=== PATIENT | female | born 1995 | race Caucasian/White ===

== ENCOUNTER 2017-02-05 22:02 | Inpatient (IN) | payer OTHER ==
[~2017-02-05] VITALS: Ht 157.5 cm; Wt 66.5 kg
[~2017-02-05 22:02] MED LIST: DESM0.1T PO; HYDR10TA PO; IBUP800T25 PO; [UNRECOGNIZED DRUG - CODE]
--- NOTE | 2017-02-05 22:22 | ERA ---
ER Documentation Chief Complaint Date/Time DATE: 02/05/17 TIME: 22:21 Chief Complaint aloc since 530 pm HPI The patient is a 21-year-old female, presenting to the ER because of altered level of consciousness when the parents came home and discovered her around 5: 30 PM. It is unknown how long she has had ALOC. She has had vomiting and diarrhea for 1 day. The history is obtained from the parents because she unable to provide history. She does not smoke nor drink nor does illegal drug according to the parents Past medical history: Hypothyroidism Past surgical history:None ROS All systems reviewed and are negative except as per history of present illness. Medications Home Meds Reported Medications Levothyroxine Sodium* (Levothyroxine Sodium*) 150 Mcg Tablet, 150 MCG PO BEFORE BREAKFAST, #30 TAB 02/05/17 Hydrocortisone (Hydrocortisone) 10 Mg Tablet, 10 MG PO BID 11/24/10 Desmopressin Acetate (Desmopressin Acetate) 0.1 Mg Tablet, 0.1 MG PO BID 11/24/10 Discontinued Reported Medications Levothyroxine Sodium (Levothroid) 112 Mcg Tablet 11/24/10 Discontinued Scripts Ibuprofen* (Motrin*) 800 Mg Tab, 800 MG PO Q6H Y for PAIN AND OR ELEVATED TEMP, #30 TAB Prov:OSKAR BOJORQUEZ MD 05/21/16 Allergies Allergies: Coded Allergies: No Known Allergies (Verified Allergy, Mild, 02/05/17) PMhx/Soc History of Surgery: No Anesthesia Reaction: No Hx Neurological Disorder: No Hx Respiratory Disorders: No Hx Cardiac Disorders: No Hx Psychiatric Problems: No Hx Miscellaneous Medical Probl: Yes (DM) Hx Alcohol Use: No Hx Substance Use: No Hx Tobacco Use: No Physical Exam Vitals Vital Signs Date Time Temp Pulse Resp B/P Pulse Ox O2 Delivery O2 Flow Rate FiO2 02/06/17 04:21 102.0 142 27 109/56 98 Room Air 02/06/17 02:27 102.8 152 34 101/72 96 02/06/17 00:53 142 29 88/40 100 02/05/17 23:28 3 02/05/17 23:00 147 26 93/56 100 Nasal Cannula 2.0 02/05/17 22:09 103.8 152 20 90/55 98 Physical Exam Const: No acute distress. Dehydrated Head: Atraumatic. Eyes: Normal Conjunctiva. ENT: Normal External Ears, Nose and Mouth. Neck: Full range of motion. No meningismus. Resp: Clear to auscultation bilaterally. Cardio: Regular tachycardic Abd: Soft, non distended, normal bowel sounds, diffuse and vague abdominal tenderness Skin: No petechiae or rashes. Back: No midline or flank tenderness. Ext: No cyanosis, or edema. Neur: Unable to perform due to her condition Psych: Unable to perform due to her condition. Result Diagram: 02/05/17223402/05/172234 Results 24 hrs Laboratory Tests Test 02/05/17 22:35 02/05/17 23:27 02/05/17 23:32 02/06/17 00:45 White Blood Count 17.110^3/ul Red Blood Count 5.4010^6/ul Hemoglobin 16.8g/dl Hematocrit 46.7% Mean Corpuscular Volume 86.5fl Mean Corpuscular Hemoglobin 31.1pg Mean Corpuscular Hemoglobin Concent 36.0g/dl Red Cell Distribution Width 13.1% Platelet Count 64571^3/UL Mean Platelet Volume 14.2fl Neutrophils % 63.0% Band Neutrophils % 7.0% Lymphocytes % 18.0% Reactive Lymphocytes % 5.0% Monocytes % 7.0% Neutrophils # 10.810^3/ul Lymphocytes # 3.110^3/ul Monocytes # 1.210^3/ul Platelet Estimate PLT APPEAR ADEQUATE Prothrombin Time 17.0Sec Prothrombin Time Ratio 1.3 INR International Normalized Ratio 1.38 Activated Partial Thromboplast Time 40.0Sec Sodium Level 138mmol/L Potassium Level 3.3mmol/L Chloride Level 97mmol/L Carbon Dioxide Level 19mmol/L Anion Gap 25 Blood Urea Nitrogen 22mg/dl Creatinine 2.96mg/dl Glucose Level 131mg/dl Lactic Acid Level 6.2mmol/L 2.9mmol/L Calcium Level 10.1mg/dl Total Bilirubin 2.2mg/dl Direct Bilirubin 0.00mg/dl Indirect Bilirubin 2.2mg/dl Aspartate Amino Transf (AST/SGOT) 131IU/L Alanine Aminotransferase (ALT/SGPT) 79IU/L Alkaline Phosphatase 67IU/L Ammonia 17umol/l Creatine Kinase 555IU/L Troponin I 1.170ng/ml Total Protein 8.7g/dl Albumin 5.0g/dl Globulin 3.70g/dl Albumin/Globulin Ratio 1.35 Lipase 375U/L Thyroid Stimulating Hormone (TSH) 9.090MIU/L Salicylates Level < 1.0mg/dl Acetaminophen Level < 10.0ug/ml Ethyl Alcohol Level < 10.0mg/dl Urine Color SARWAT Urine Clarity SLIGHTLY CLOUDY Urine pH 5.0 Urine Specific [place] >=1.030 Urine Ketones TRACE Urine Nitrite NEGATIVE Urine Bilirubin 2+ Urine Ictotest POSITIVE Urine Urobilinogen 0.2 E.U./dL Urine Leukocyte Esterase NEGATIVE Urine Microscopic RBC NONE SEEN/HPF Urine Microscopic WBC NONE SEEN/HPF Urine Squamous Epithelial Cells MODERATE Urine Amorphous Urates MANY Urine Bacteria FEW Urine Hemoglobin NEGATIVE Urine Glucose NEGATIVE% Urine Total Protein 2+ Urine Opiates Screen Negative Urine Barbiturates Negative Urine Amphetamines Screen Negative Urine Benzodiazepines Screen Negative Urine Cocaine Screen Negative Urine Cannabinoids Negative Bedside Urine pH (LAB) 5.0 Bedside Urine Protein (LAB) 2+ Bedside Urine Glucose (UA) Negative Bedside Urine Ketones (LAB) Trace Bedside Urine Blood Negative Bedside Urine Nitrite (LAB) Negative Bedside Urine Leukocyte Esterase (L Negative Test 02/06/17 01:45 02/06/17 03:44 CSF Tubes Submitted 4 CSF Volume 5.0ml CSF Appearance CLEAR CSF Color COLORLESS CSF WBC 12/uL CSF RBC 0/uL CSF Cell Count Tube # TUBE#4 CSF Total Cells Counted 100 CSF Neutrophils % 1% CSF Lymphocytes % 75% CSF Monocytes % 22% CSF Eosinophils % 2% CSF Crenated Cells 0% CSF Glucose 64mg/dl CSF Total Protein 40mg/dl Lactic Acid Level 1.5mmol/L Current Medications Medications (Trade) Dose Ordered Sig/Temitope Route PRN Reason Start Time Stop Time Status Last Admin Dose Admin Sodium Chloride (NS) 2,130 ml BOLUS OVER 2 HOURS STAT IV* 02/05/17 22:29 02/05/17 22:35 DC 02/05/17 23:26 Acetaminophen (Tylenol Supp) 650 mg ONCE ONCE OH 02/05/17 22:30 02/05/17 22:35 DC 02/05/17 23:26 Dexamethasone 10 mg 10 mg ONCE ONCE IV 02/06/17 00:00 02/06/17 00:06 DC 02/06/17 01:56 Ceftriaxone Sodium 50 ml @ 100 mls/hr ONCE ONCE IVPB 02/06/17 00:00 02/06/17 00:29 DC 02/06/17 02:25 Vancomycin HCl (Vancocin) 250 ml @ 125 mls/hr ONCE IVPB 02/06/17 00:00 02/06/17 01:59 DC 02/06/17 04:16 Lorazepam (Ativan) 2 mg STK-MED ONCE .ROUTE 02/06/17 00:29 02/06/17 00:30 DC Lorazepam 1 mg 1 mg ONCE ONCE IV 02/06/17 01:00 02/06/17 01:01 DC 02/06/17 01:00 Metronidazole (Flagyl 500 Mg (Pmx)) 100 ml @ 100 mls/hr ONCE ONCE IVPB 02/06/17 02:00 02/06/17 02:59 DC 02/06/17 03:10 Lorazepam (Ativan) 1 mg ONCE ONCE IV 02/06/17 02:30 02/06/17 02:31 DC 02/06/17 01:45 Lorazepam 1 mg 1 mg ONCE ONCE IV 02/06/17 02:30 02/06/17 02:31 DC 02/06/17 01:30 Sodium Chloride (NS) 1,000 ml @ 1,000 mls/hr Q1H ONCE IV 02/06/17 03:00 02/06/17 03:59 DC 02/06/17 03:00 Acetaminophen (Tylenol Supp) 1,000 mg ONCE ONCE OH 02/06/17 04:30 02/06/17 04:31 02/06/17 04:26 Procedures/[place] [id number] Radiology Main Line: [phone] DIAGNOSTIC IMAGING REPORT Patient: ZACH LIZARRAGA : 1995 Age: 21 Sex: F MR #: [id number] DOS: 02/05/17 2229 Ordering MD: HIREN CAMACHO MD Location: E/R Room/Bed: PROCEDURE: Portable chest x-ray. CLINICAL INDICATION: Sepsis. TECHNIQUE: Portable AP view of the chest. COMPARISON: None. FINDINGS: There are low lung volumes, limiting evaluation of the pulmonary vessels. No pulmonary conolidation is identified. The cardiac silhouette is magnified. No pleural effusion is seen. There is no pneumothorax. IMPRESSION: 1. Low lung volumes. RPTAT: HTAR .Devonte Barnard MD, Date Time Electronically viewed and signed by .Devonte Barnard MD, MD on 02/06/2017 00:11 .R/ CC: HIREN CAMACHO MD [place] [id number] Radiology Main Line: [phone] DIAGNOSTIC IMAGING REPORT Patient: ZACH LIZARRAGA : 1995 Age: 21 Sex: F MR #: [id number] DOS: 02/05/179 Ordering MD: HIREN CAMACHO MD Location: E/R Room/Bed: PROCEDURE: CT brain without contrast CLINICAL INDICATION: Altered mental status. Possible sepsis. TECHNIQUE: A CT of the brain was performed utilizing axial sections from the skull base through the vertex without contrast. Sagittal and coronal images were also reformatted. The exam CTDIvol = 90.02 mGy and DLP = 1440.45 mGy-cm. COMPARISON: None available FINDINGS: No acute intracranial hemorrhage is identified. There is no mass effect or midline shift. No extra-axial fluid collection is seen. Congenital variant of the ventricular system is noted, a cavum septum pellucidum et vergae. No hydrocephalous is present. The density of the brain is within normal limits. Blue-white differentiation is preserved. The osseous structures are unremarkable. The mastoid air cells and visualized paranasal sinuses are clear. RPTAT:HJJR IMPRESSION: 1. No evidence of acute intracranial abnormality, mass effect or finding to help explain the patient's provided history. 2. 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 Physician Jethro Date Time Electronically viewed and signed by Bryan Emery Physician on 02/06/2017 00:49 JR/ CC: HIREN CAMACHO MD [place] [id number] Radiology Main Line: [phone] DIAGNOSTIC IMAGING REPORT Patient: ZACH LIZARRAGA : 1995 Age: 21 Sex: F [id number] DOS: 02/05/17 2229 Ordering MD: HIREN CAMACHO MD Location: E/R Room/Bed: PROCEDURE: CT abdomen and pelvis without contrast. CLINICAL INDICATION: Sepsis TECHNIQUE: CT scan of the abdomen and pelvis without contrast was performed. Sagittal and coronal reformatted images were obtained from the axial source images. CTDI = 13.56 mGy; DLP = 4.69 mGy-cm COMPARISON: Chest x-ray 02/05/2017 FINDINGS: Visualized lower thorax: Scattered areas of ground-glass attenuation and interposed hyperlucent lungs suggest pneumonitis and air trapping without focal infiltrate. There is no evidence for pleural effusion. Liver, gallbladder, pancreas and spleen: Low attenuation of the liver consistent with hepatic steatosis, liver contour is normal with borderline enlargement the maximum dimension 18 cm. There is no evidence for a liver mass or ductal dilatation. The gallbladder is unremarkable. No common bile duct abnormality is demonstrated. The pancreas is unremarkable. The spleen is mildly enlarged measuring 13.1 cm. Adrenal glands and genitourinary system: The adrenal glands are normal bilaterally. The kidneys are normal and size, contour and attenuation with no evidence for masses, calculi or hydronephrosis. The ureters are unremarkable. No urinary bladder abnormality is demonstrated. The uterus is small. There is no evidence of ovarian or adnexal mass. Gastrointestinal system: Thickening of the distal esophageal wall unable to exclude esophagitis. The stomach is normal in caliber without wall thickening. The duodenum is normal, the jejunum shows gas/fluid levels and a diameter of 2.7 cm suggestive of an ileus without complete obstruction. Mild small bowel wall thickening and trace inflammation of the mesenteric fat is concerning for enteritis.. The appendix and surrounding fat are within the limits of normal. Some fat deposition within the cecum and proximal ascending colon may be the sequela of prior colitis, the colonic wall is predominate collapsed. Liquid stool is seen within the distal colon which may correlate clinically with diarrhea. There is no evidence for colitis or diverticulitis. Peritoneum, retroperitoneum, lymph nodes and vessels: The abdominal aorta is normal in caliber. No pneumoperitoneum is evident. The inferior vena cava is unremarkable. There is no evidence for adenopathy or mass. There is no ascites. No intraperitoneal abscess is seen Osseous structures and musculoskeletal findings: There is no fracture, lytic or blastic lesion. No muscular abnormality or soft tissue pathology is present. RPTAT:HJJR IMPRESSION: 1. No evidence of intra-abdominal or intrapelvic abscess. 2. Distal esophageal wall thickening concerning for esophagitis. 3. Mild small bowel ileus pattern with likely nonspecific enteritis pattern. There is no bowel obstruction. 4. Fat deposition within the cecum and proximal colon likely the sequela of prior colitis without evidence of acute colonic wall thickening or adjacent stranding. Liquid stool within the distal colon likely correlates with diarrhea clinically. 5. Scattered areas of ground-glass attenuation in the lung base is not appreciated on chest x-ray unable to exclude pneumonitis and air trapping/ reactive airway disease. 6. Hepatic steatosis. 7. Mild splenomegaly Physician Jethro Date Time Electronically viewed and signed by Physician Jethro on 02/06/2017 00:58 JR/ CC: HIREN CAMACHO MD EKG: Read by emergency physician Rate/Rhythm: Sinus tachycardia 146 beats/min QRS, ST, T-waves: No ST elevation, no T inversion, right east axis Impression: Abnormal EKG MEDICAL MAKING DECISION: The patient is a 21-year-old female, presenting with acute encephalopathy, acute septic shock, acute kidney injury, probable acute colitis, hypothyroidism, suspected esophagitis, elevated troponin most likely due to acute renal failure, elevated liver function tests most likely due to acute dehydration. She was treated with normal saline 30 mL/kg IV, Decadron 10 mg IV 15 minutes before IV antibiotics; Rocephin 2 g IV, vancomycin 1 g IV, Flagyl 500 mg IV. She was also treated with aspirin 160 mg suppository for acute elevated troponin. She was treated with a Coats catheter The differential diagnoses considered include but are not limited to medication non-compliance, alcohol intoxication or withdrawal, drug intoxication or withdrawal, endocrine disorder, trauma, CVA, tumor, metabolic encephalopathy, septic encephalopathy. The differential diagnoses for elevated troponin considered include but are not limited to acute coronary syndrome, acute myocardial infarction, pericarditis, pulmonary embolism, aortic dissection, pneumonia, pleural effusion, pneumothorax , GERD, chest wall pain. Admit MDM: Patient's infectious symptoms have not stabilized and the patient is at risk of rapid decompensation. The patient will be admitted for careful hydration, antibiotic therapy, and infectious source control. Severe Sepsis criteria: Infectious source: Unknown End organ damage indicated by: Lactate > 2.0 mmol/L [place]rick > 2.0 Sepsis Management: Time of recognition of severe sepsis/septic shock:22:45 hr Within 3 hours of recognition: Blood cultures x 2 before broad-spectrum antibiotics: Yes 30 ml/kg NS bolus completed Initial lactate 6.2 Repeat lactate pending Critical Care: Critical care time 35 minutes Emergent fluid management while maintaining close respiratory support. Provision of immediate and broad-spectrum antibiotic therapy. Simultaneous assessment for possible sources in order to direct targeted therapy. Consideration for invasive and chemical support to prevent cardiopulmonary collapse. Septic Shock Assessment: Any lactic acid > 4.0 no Persistent hypotension (SBP < 90 or 40 mmHg drop, MAP < 65) despite 30 mL/kg IV fluid bolusno Lumbar Puncture by me: Patient consented, time out performed, sterilely prepped/draped, anesthetized locally. Anesthesia: 1% lidocaine locally Location: One interspace below the iliac crest Technique: 18 gauge needle with stylet for entry and removal of needle Results: Clear CSF fluid No post procedure complications, bleeding, numbness or weakness. Departure Diagnosis: Primary Impression: Encephalopathy acute Additional Impressions: Septic shock Acute kidney injury Elevated troponin Abnormal LFTs Condition: Critical Comments I discussed the findings with the patient. I discussed the patient with the on- call hospitalist Dr. Hoang who was made aware of the lab, the treatment, the patient condition. The patient is admitted to ICU at 1:40 AM HIREN CAMACHO MD Feb 05, 2017 22:22
[2017-02-05] MEDS ORDERED: SODIUM CHLORIDE 0.9% 1L BAG IV* STA (22:29)
[2017-02-05] MEDS ORDERED: ACETAMINOPHEN 650 MG SUPP PR ONE (22:30)
[2017-02-05] MEDS ORDERED: LEVO150T67 PO (22:44)
[2017-02-05 23:19] LABS: ADD SCAN DIFF NO
[2017-02-05 23:21] LABS: HEMATOCRIT 46.7 % (37.0-47.0); HEMOGLOBIN 16.8 g/dl (12.0-16.0); MEAN CORPUSCULAR HEMOGLOBIN 31.1 pg (29.0-33.0); MEAN CORPUSCULAR VOLUME 86.5 fl (72.0-104.0); MEAN PLATELET VOLUME 14.2 fl (7.4-10.4); PLATELET COUNT 213 10^3/UL (140-415); RED CELL DISTRIBUTION WIDTH 13.1 % (11.5-14.5); WHITE BLOOD COUNT 17.1 10^3/ul (4.8-10.8)
[2017-02-05 23:32] LABS: URINE BLOOD (Dip) POC Negative (NEGATIVE)
[2017-02-05 23:33] LABS: INR 1.38; PT RATIO 1.3
[2017-02-05 23:35] LABS: CHLORIDE 97 mmol/L (97-110)
[2017-02-05 23:36] LABS: POTASSIUM 3.3 mmol/L (3.5-5.1); SODIUM 138 mmol/L (135-144)
[2017-02-05 23:38] LABS: ALBUMIN/GLOBULIN RATIO 1.35; ALKALINE PHOSPHATASE 67 IU/L (42-121); ANION GAP 25 (8-16); ASPARTATE AMINO TRANSFERASE 131 IU/L (15-46); BILIRUBIN,INDIRECT 2.2 mg/dl (0-1.1); BILIRUBIN,TOTAL 2.2 mg/dl (0.2-1.3); BLOOD UREA NITROGEN 22 mg/dl (7-20); CARBON DIOXIDE 19 mmol/L (21-31); CREATININE 2.96 mg/dl (0.44-1.00); GLUCOSE 131 mg/dl (70-220); TOTAL PROTEIN 8.7 g/dl (6.1-8.1)
[2017-02-05 23:39] LABS: ALANINE AMINOTRANSFERASE 79 IU/L (13-69); CALCIUM 10.1 mg/dl (8.4-10.2)
[2017-02-05 23:40] LABS: LACTIC ACID 6.2 mmol/L (0.5-2.2)
[2017-02-05 23:41] LABS: ACETAMINOPHEN < 10.0 ug/ml (10.0-30.0); ETHANOL < 10.0 mg/dl; SALICYLATE < 1.0 mg/dl (5.0-30.0)
[2017-02-05 23:54] LABS: URINE COLOR AMBER (YELLOW); URINE GLUCOSE (Dip) NEGATIVE (NEGATIVE); URINE KETONES (Dip) TRACE (NEGATIVE); URINE TOTAL PROTEIN (Dip) 2+ (NEGATIVE)
[2017-02-05 23:55] LABS: ADD UMIC YES; URINE BILIRUBIN (Dip) 2+ (NEGATIVE); URINE BLOOD (Dip) NEGATIVE (NEGATIVE); URINE LEUKOCYTE ESTERASE (Dip) NEGATIVE (NEGATIVE); URINE NITRITE (Dip) NEGATIVE (NEGATIVE); URINE UROBILINOGEN (Dip) 0.2 E.U./dL (0.1-1.0)
[2017-02-06] VITALS (48 sets, daily range): BP systolic 84–133; BP diastolic 10–111; PULSE 122–158; RESP 16–41; TEMP 102; Ht 157.5 cm; Wt 66.5 kg
[2017-02-06] MEDS ORDERED: VANCOMYCIN 1 GM (PMX) 250 ML IVPB SCH
[2017-02-06] MEDS ORDERED: DEXAMETHASONE 10 MG/ML 1 ML INJ IV ONE
[2017-02-06] MEDS ORDERED: CEFTRIAXONE 2 GM/50 ML (PMX) 50 ML IVPB ONE
[2017-02-06 00:01] LABS: ICTOTEST POSITIVE (NEGATIVE)
[2017-02-06 00:03] LABS: URINE RBCS NONE SEEN /HPF (0)
[2017-02-06 00:04] LABS: BACTERIA,URINE FEW; SQUAMOUS EPITHELIAL CELL,UR MODERATE
--- NOTE | 2017-02-06 00:11 | RADRPT ---
PROCEDURE: Portable chest x-ray. CLINICAL INDICATION: Sepsis. TECHNIQUE: Portable AP view of the chest. COMPARISON: None. FINDINGS: There are low lung volumes, limiting evaluation of the pulmonary vessels. No pulmonary conolidation is identified. The cardiac silhouette is magnified. No pleural effusion is seen. There is no pneu mothorax. IMPRESSION: 1. Low lung volumes. RPTAT: HTAR .Devonte Barnard MD, MD Date Time Electronically viewed and signed by .Devonte Barnard MD, on 02/06/2017 00:11 .R/
[2017-02-06 00:16] LABS: LYMPHOCYTES # 3.1 10^3/ul (0.8-2.9); MONOCYTE # 1.2 10^3/ul (0.3-0.9); NEUTROPHIL # 10.8 10^3/ul (1.6-7.5); PLATELET ESTIMATE PLT APPEAR ADEQUATE
[2017-02-06 00:17] LABS: BARBITURATES Negative (NEGATIVE); BENZODIAZEPINES Negative (NEGATIVE); CANNABINOIDS Negative (NEGATIVE); COCAINE Negative (NEGATIVE); OPIATES Negative (NEGATIVE)
[2017-02-06] MEDS ORDERED: LORAZEPAM 2 MG INJ ONE (00:29)
--- NOTE | 2017-02-06 00:49 | RADRPT ---
PROCEDURE: CT brain without contrast CLINICAL INDICATION: Altered mental status. Possible sepsis. TECHNIQUE: A CT of the brain was performed utilizing axial sections from the skull base through th e vertex without contrast. Sagittal and coronal images were also reformatted. The exam CTDIvol = 90. 02 mGy and DLP = 1440.45 mGy-cm. COMPARISON: None available FINDINGS: No acute intracranial hemorrhage is identified. There is no mass effect or midline shift. No extra -axial fluid collection is seen. Congenital variant of the ventricular system is noted, a cavum sep tejal pellucidum et vergae. No hydrocephalous is present. The density of the brain is within normal l imits. Blue-white differentiation is preserved. The osseous structures are unremarkable. The mastoid air cells and visualized paranasal sinuses are clear. RPTAT:HJJR IMPRESSION: 1. No evidence of acute intracranial abnormality, mass effect or finding to help explain the patien t's provided history. 2. 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 Physician Jethro Date Time Electronically viewed and signed by Physician Jethro on 02/06/2017 00:49 /
--- NOTE | 2017-02-06 00:58 | RADRPT ---
PROCEDURE: CT abdomen and pelvis without contrast. CLINICAL INDICATION: Sepsis TECHNIQUE: CT scan of the abdomen and pelvis without contrast was performed. Sagittal and coronal reformatted images were obtained from the axial source images. CTDI = 13.56 mGy; DLP = 4.69 mGy-cm COMPARISON: Chest x-ray 02/05/2017 FINDINGS: Visualized lower thorax: Scattered areas of ground-glass attenuation and interposed hyperlucent mindy gs suggest pneumonitis and air trapping without focal infiltrate. There is no evidence for pleural effusion. Liver, gallbladder, pancreas and spleen: Low attenuation of the liver consistent with hepatic steat osis, liver contour is normal with borderline enlargement the maximum dimension 18 cm. There is no evidence for a liver mass or ductal dilatation. The gallbladder is unremarkable. No common bile du ct abnormality is demonstrated. The pancreas is unremarkable. The spleen is mildly enlarged measur ing 13.1 cm. Adrenal glands and genitourinary system: The adrenal glands are normal bilaterally. The kidneys are normal and size, contour and attenuation with no evidence for masses, calculi or hydronephrosis. T he ureters are unremarkable. No urinary bladder abnormality is demonstrated. The uterus is small. There is no evidence of ovarian or adnexal mass. Gastrointestinal system: Thickening of the distal esophageal wall unable to exclude esophagitis. T he stomach is normal in caliber without wall thickening. The duodenum is normal, the jejunum shows gas/fluid levels and a diameter of 2.7 cm suggestive of an ileus without complete obstruction. Mild small bowel wall thickening and trace inflammation of the mesenteric fat is concerning for enteriti s.. The appendix and surrounding fat are within the limits of normal. Some fat deposition within t he cecum and proximal ascending colon may be the sequela of prior colitis, the colonic wall is predo minate collapsed. Liquid stool is seen within the distal colon which may correlate clinically with diarrhea. There is no evidence for colitis or diverticulitis. Peritoneum, retroperitoneum, lymph nodes and vessels: The abdominal aorta is normal in caliber. No pneumoperitoneum is evident. The inferior vena cava is unremarkable. There is no evidence for cody opathy or mass. There is no ascites. No intraperitoneal abscess is seen Osseous structures and musculoskeletal findings: There is no fracture, lytic or blastic lesion. No muscular abnormality or soft tissue pathology is present. RPTAT:HJJR IMPRESSION: 1. No evidence of intra-abdominal or intrapelvic abscess. 2. Distal esophageal wall thickening concerning for esophagitis. 3. Mild small bowel ileus pattern with likely nonspecific enteritis pattern. There is no bowel obs truction. 4. Fat deposition within the cecum and proximal colon likely the sequela of prior colitis without e vidence of acute colonic wall thickening or adjacent stranding. Liquid stool within the distal colo n likely correlates with diarrhea clinically. 5. Scattered areas of ground-glass attenuation in the lung base is not appreciated on chest x-ray unable to exclude pneumonitis and air trapping/reactive airway disease. 6. Hepatic steatosis. 7. Mild splenomegaly Physician Jethro Date Time Electronically viewed and signed by Bryan Emery Physician on 02/06/2017 00:58 JR/
[2017-02-06] MEDS ORDERED: LORAZEPAM 2 MG INJ IV ONE ×5 (01:00→15:00)
[2017-02-06] MEDS ORDERED: metroNIDAZOLE 500 MG/NS (PMX) 100 ML IVPB ONE (02:00)
[2017-02-06 02:02] LABS: # OF CELLS COUNTED 100
[2017-02-06 02:43] LABS: %CREANATED RBC CSF 0 %; CSF COLOR COLORLESS; CSF#TUBE COUNT TUBE#4; CSF#TUBES REC'D 4
[2017-02-06 02:56] LABS: CSF EOSINOPHIL 2 %
[2017-02-06] MEDS ORDERED: SOD CHLORIDE 0.9% 1,000 ML IV ONE (03:00)
[2017-02-06] MEDS ORDERED: ACETAMINOPHEN 650 MG SUPP PR ONE (04:30)
[2017-02-06] MEDS ORDERED: ASPIRIN 300 MG SUPP PR ONE (05:00)
[2017-02-06] MEDS ORDERED: SOD CHLORIDE 0.9% 250 ML IV STA (05:19)
[2017-02-06] MEDS ORDERED: LEVOTHYROXINE 100 MCG VIAL IV ONE (05:22)
[2017-02-06] MEDS ORDERED: NORepinephrine 8MG/250 ML (PMX 250 ML IV SCH (05:30)
[2017-02-06] MEDS ORDERED: ACETAMINOPHEN 325 MG TAB PO PRN (05:30)
[2017-02-06] MEDS ORDERED: ONDANSETRON 4 MG INJ IV PRN (05:30)
[2017-02-06] MEDS ORDERED: PROPOFOL 100 ML IV SCH (05:30)
[2017-02-06] MEDS ORDERED: VANCOMYCIN IV PER PHARMACY XX SCH (05:30)
[2017-02-06] MEDS ORDERED: LEVOTHYROXINE 150 MCG TAB PO ONE (05:43)
[2017-02-06] MEDS ORDERED: HYDROCORTISONE 100 MG INJ IV ONE (06:00)
[2017-02-06] MEDS ORDERED: POTASSIUM CHLORIDE 20 MEQ in SOD CHLORIDE 0.9% 100 ML IVPB ONE (06:00)
[2017-02-06] MEDS: DEXTROSE 5%-0.45% NACL 1,000 ML IV SCH ×3 (06:26→22:05)
[2017-02-06] MEDS: PANTOPRAZOLE 40 MG INJ IV SCH (06:51)
[2017-02-06] MEDS: IMIPENEM-CILAST 500MG IV (PMX) 100 ML IVPB SCH ×3 (06:51→21:39)
[2017-02-06] MEDS ORDERED: LEVOTHYROXINE 150 MCG TAB PO SCH (07:00)
[2017-02-06] MEDS ORDERED: ADENOSINE 6 MG INJ IV ONE (07:30)
[2017-02-06] MEDS ORDERED: morphine 10 MG INJ IV ONE (07:30)
[2017-02-06 07:46] LABS: ADD SCAN DIFF NO
[2017-02-06 07:52] LABS: ABNORMAL IP MESSAGE 1; HEMATOCRIT 35.8 % (37.0-47.0); HEMOGLOBIN 12.4 g/dl (12.0-16.0); MEAN CORPUSCULAR HEMOGLOBIN 30.5 pg (29.0-33.0); MEAN CORPUSCULAR HGB CONC 34.6 g/dl (32.0-37.0); MEAN CORPUSCULAR VOLUME 88.2 fl (72.0-104.0); MEAN PLATELET VOLUME 14.5 fl (7.4-10.4); PLATELET COUNT 96 10^3/UL (140-415); RED BLOOD COUNT 4.06 10^6/ul (4.20-5.40); RED CELL DISTRIBUTION WIDTH 13.3 % (11.5-14.5); WHITE BLOOD COUNT 8.6 10^3/ul (4.8-10.8)
--- NOTE | 2017-02-06 07:55 | HP ---
DATE OF ADMISSION: 02/06/2017 TIME SEEN: 6 a.m. CHIEF COMPLAINT: Altered mentation and diarrhea. HISTORY OF PRESENT ILLNESS: The patient is a 21-year-old female with a history of hypothyroidism, w armida was brought to the ER with the chief complaint of altered mentation and diarrhea. The patient wa s found by family yesterday around 6 p.m. with altered mentation and lethargy, as well as bowel inco ntinence. A couple of hours prior, around 4:00 p.m., her mother spoke to the patient and at that ti me reportedly she was her normal self. Family also reported multiple large amounts of watery diarrh ea. When the patient presented to the ER she was febrile with a temperature of almost 104, tachycardic i n the 150s and blood pressure 90/55. Laboratory value shows a WBC of 17,000, potassium 3.3, bicarbo jimbo 19, anion gap 25, BUN 22, creatinine almost 3, lactic acid 6.2, which decreased to 1.5, total b ilirubin 2.2, AST 131, ALT 79. First troponin 1.17. 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 A chest x-ray shows low lung volumes, otherwise no consolidation, pleural effusion, or pneumothorax. CT abdomen and pelvis without contrast shows distal esophageal wall thickening, julian rning for esophagitis, mild small bowel ileus, likely nonspecific enteritis, fat deposition within t he cecum and proximal colon, likely the sequela of prior colitis, hepatic steatosis, mild splenomega ly and scattered areas of ground glass attenuation in the lung base. The patient also was found to have a TSH of 9. No other thyroid profile was ordered. Lipase was 375. Per initial ER nurse notes , the patient was fearful to answering questions and also she was tearful. She also had been restle ss and agitated. A lumbar puncture was done and CSF analysis shows a WBC of 12. The patient receiv ed vancomycin, ceftriaxone, Flagyl, Ativan, as well as IV fluids while she was in the ER. She was a lso given 10 mg of Decadron. REVIEW OF SYSTEMS: Unable to fully assess, but negative except as mentioned in the HPI. PAST MEDICAL HISTORY: As per HPI. PAST SURGICAL HISTORY: None reported. SOCIAL HISTORY: No history of tobacco, alcohol or illicit drug use. ALLERGIES: NO KNOWN DRUG ALLERGIES. HOME MEDICATIONS: 1. Levothyroxine. 2. Desmopressin. 3. Hydrocortisone. PHYSICAL EXAMINATION: VITAL SIGNS: Blood pressure 105/64, heart rate 145, respiratory rate 26, temperature earlier 102, oxygen saturation 97% on 4 liters. GENERAL: The patient is restless, not answering questions appropriately. HEENT: No obvious head deformity. Pupils are reactive to light. CARDIOVASCULAR: Tachycardic, with a regular rhythm. LUNGS: Clear anteriorly. ABDOMEN: Soft. No grimaces noted on palpation. EXTREMITIES: No edema. LABORATORY: Pertinent positives as mentioned in the HPI. IMAGING: Chest x-ray, brain CT and CT abdomen and pelvis, with results as mentioned in the HPI. IMPRESSION: 1. Acute encephalopathy. 2. Sepsis, likely secondary to meningitis. 3. Hypothyroidism. 4. Presumed acute kidney injury. 5. Elevated transaminases. 6. Positive troponin, in the setting of sepsis. 7. Mild hypokalemia. 8. Lactic acidosis, resolved. 9. Mild pancreatitis, with a lipase of 375. PLAN: Admit to the ICU. She will be placed on broad-spectrum antibiotic. Will follow up on the cu lture results, including the CSF culture. I will order a complete thyroid profile and a cortisol le ming. Even though she is tachycardic, given the elevated TSH, indicative of hypothyroid state, will g o ahead and order levothyroxine for her, especially, even though rate, hypothyroidism can also caus e tachycardia, as opposed to what is most commonly seen of bradycardia. She will continue to receiv e IV fluid. Will place a pulmonary and endocrine consult, as well as a nephrology consult. Her reema al insufficiency is most likely of prerenal etiology as a result of multiple severe diarrhea she has had. Again, will continue aggressive IV hydration and avoid nephrotoxins. Will correct electrolyt es as needed. Will follow up on urine culture and blood culture, as well as stool studies, includin g C. difficile. Further workup and management per clinical course. Dictated By: SEB MIRELES/ZACK Conf#: [id number] DID#: [id number]
[2017-02-06 08:22] LABS: FREE T3 2.66 pg/ml (2.77-5.27)
[2017-02-06 08:31] LABS: ALBUMIN 3.6 g/dl (3.3-4.9); ALBUMIN/GLOBULIN RATIO 1.2; BILIRUBIN,INDIRECT 1.5 mg/dl (0-1.1); BILIRUBIN,TOTAL 1.5 mg/dl (0.2-1.3); CALCIUM 8.5 mg/dl (8.4-10.2); CREATININE 1.46 mg/dl (0.44-1.00); MAGNESIUM 1.5 mg/dl (1.7-2.5); POTASSIUM 4.3 mmol/L (3.5-5.1); TOTAL PROTEIN 6.6 g/dl (6.1-8.1)
--- NOTE | 2017-02-06 09:33 | CONS ---
Date/Time of Note Date/Time of Note DATE: 02/06/17 TIME: 09:25 Assessment/Plan Assessment/Plan Chief Complaint/Hosp Course Acute delirium: being treated for meningitis. ?viral vs bacterial Acute renal failure: improved with hydration NSTEMI: The most reasonable explanation would be a viral myocarditis which would also explain the remainder of the pt's presentation. Trops downtrending. Will check echo. Septic shock: secondary to above. Sinus tachycardia: secondary to above. -echo -no cardiac meds indicated -supportive therapy per primary team Problems: Consultation Date/Type/Reason Admit Date/Time Feb 06, 2017 at 05:14 Date of Consultation: Feb 06, 2017 Type of Consultation: Cardiology Referring Provider: SEB SANCHEZ MD Hx of Present Illness 21 yo F with a h/o hypothyroidism who was brought in for altered mentation and was found to have acute renal failure, sepsis, NSTEMI, and is being treated for possible meningitis. Per the family at bedside, the pt has been having diarrhea for 1.5 days but otherwise was doing well. Her mother spoke to her around 4 pm yesterday at which time she was still her normal self but around 6 pm the pt was discovered to be altered. Overnight her numbers have all improved but she remains hypotensive and tachycardic. She is not able to respond to questions but is arousable. unable to obtain Social History Smoking Status: Never smoker Exam/Review of Systems Vital Signs Vitals Vital Signs Date Time Temp Pulse Resp B/P Pulse Ox O2 Delivery O2 Flow Rate FiO2 02/06/17 06:30 140 02/06/17 05:57 25 94/44 97 Nasal Cannula 4.0 02/06/17 04:21 102.0 Intake and Output 02/05/17 02/05/17 02/06/17 15:00 23:00 07:00 Intake Total 150 ml Output Total 770 ml Balance -620 ml Exam Constitutional: No alert, No oriented Head: atraumatic, normocephalic Neck: No jvd Respiratory: clear to auscultation, No crackles/rales Cardiovascular: No edema, No regular rate and rhythm (tachycardic, regular) Gastrointestinal: non-tender, soft Extremities: normal pulses Neurological: No nl mental status, No nl speech Results EKG: Sinus tachycardia, no ST changes Result Diagram: 02/06/17 0720 02/06/17 0720 Results 24 hrs Laboratory Tests Test 02/05/17 22:35 02/05/17 23:27 02/05/17 23:32 02/06/17 00:45 White Blood Count 17.1 H Red Blood Count 5.40 Hemoglobin 16.8 H Hematocrit 46.7 Mean Corpuscular Volume 86.5 Mean Corpuscular Hemoglobin 31.1 Mean Corpuscular Hemoglobin Concent 36.0 Red Cell Distribution Width 13.1 Platelet Count 213 Mean Platelet Volume 14.2 H Neutrophils % 63.0 Band Neutrophils % 7.0 H Lymphocytes % 18.0 Reactive Lymphocytes % 5.0 Monocytes % 7.0 Neutrophils # 10.8 H Lymphocytes # 3.1 H Monocytes # 1.2 H Platelet Estimate PLT APPEAR ADEQUATE Prothrombin Time 17.0 H Prothrombin Time Ratio 1.3 INR International Normalized Ratio 1.38 Activated Partial Thromboplast Time 40.0 H Sodium Level 138 Potassium Level 3.3 L Chloride Level 97 Carbon Dioxide Level 19 L Anion Gap 25 H Blood Urea Nitrogen 22 H Creatinine 2.96 H Glucose Level 131 Lactic Acid Level 6.2 *H 2.9 H Calcium Level 10.1 Total Bilirubin 2.2 H Direct Bilirubin 0.00 Indirect Bilirubin 2.2 H Aspartate Amino Transf (AST/SGOT) 131 H Alanine Aminotransferase (ALT/SGPT) 79 H Alkaline Phosphatase 67 Ammonia 17 Creatine Kinase 555 H Troponin I 1.170 *H Total Protein 8.7 H Albumin 5.0 H Globulin 3.70 H Albumin/Globulin Ratio 1.35 Lipase 375 H Thyroid Stimulating Hormone (TSH) 9.090 H Salicylates Level < 1.0 L Acetaminophen Level < 10.0 L Ethyl Alcohol Level < 10.0 Urine Color SARWAT Urine Clarity SLIGHTLY CLOUDY Urine pH 5.0 Urine Specific [place] >=1.030 H Urine Ketones TRACE Urine Nitrite NEGATIVE Urine Bilirubin 2+ H Urine Ictotest POSITIVE Urine Urobilinogen 0.2 E.U./dL Urine Leukocyte Esterase NEGATIVE Urine Microscopic RBC NONE SEEN Urine Microscopic WBC NONE SEEN Urine Squamous Epithelial Cells MODERATE Urine Amorphous Urates MANY Urine Bacteria FEW Urine Hemoglobin NEGATIVE Urine Glucose NEGATIVE Urine Total Protein 2+ H Urine Opiates Screen Negative Urine Barbiturates Negative Urine Amphetamines Screen Negative Urine Benzodiazepines Screen Negative Urine Cocaine Screen Negative Urine Cannabinoids Negative Bedside Urine pH (LAB) 5.0 Bedside Urine Protein (LAB) 2+ H Bedside Urine Glucose (UA) Negative Bedside Urine Ketones (LAB) Trace H Bedside Urine Blood Negative Bedside Urine Nitrite (LAB) Negative Bedside Urine Leukocyte Esterase (L Negative Test 02/06/17 01:45 02/06/17 03:44 02/06/17 07:20 CSF Tubes Submitted 4 CSF Volume 5.0 CSF Appearance CLEAR CSF Color COLORLESS CSF WBC 12 *H CSF RBC 0 CSF Cell Count Tube # TUBE#4 CSF Total Cells Counted 100 CSF Neutrophils % 1 CSF Lymphocytes % 75 CSF Monocytes % 22 CSF Eosinophils % 2 CSF Crenated Cells 0 CSF Glucose 64 CSF Total Protein 40 Lactic Acid Level 1.5 White Blood Count 8.6 # Red Blood Count 4.06 #L Hemoglobin 12.4 # Hematocrit 35.8 #L Mean Corpuscular Volume 88.2 Mean Corpuscular Hemoglobin 30.5 Mean Corpuscular Hemoglobin Concent 34.6 Red Cell Distribution Width 13.3 Platelet Count 96 #L Mean Platelet Volume 14.5 H Neutrophils % Lymphocytes % Monocytes % Neutrophils # Lymphocytes # Monocytes # Sodium Level 145 H Potassium Level 4.3 Chloride Level 120 #H Carbon Dioxide Level 15 L Anion Gap 14 # Blood Urea Nitrogen 20 Creatinine 1.46 #H Glucose Level 182 Calcium Level 8.5 Magnesium Level 1.5 L Total Bilirubin 1.5 H Direct Bilirubin 0.00 Indirect Bilirubin 1.5 H Aspartate Amino Transf (AST/SGOT) 114 H Alanine Aminotransferase (ALT/SGPT) 70 H Alkaline Phosphatase 47 Troponin I 0.848 *H Total Protein 6.6 # Albumin 3.6 # Globulin 3.00 Albumin/Globulin Ratio 1.20 Free Thyroxine 0.95 Free Triiodothyronine (T3) pg/mL 2.66 L Random Cortisol Pending Medications Medications Current Medications Dextrose/Sodium Chloride (D5-1/2ns) 1,000 ml @ 125 mls/hr Q8H IV Last administered on 02/06/17t 06:26; Admin Dose 125 MLS/HR; Start 02/06/17 at 05:08 Ondansetron HCl (Zofran Inj) 4 mg Q6H PRN IV NAUSEA AND/OR VOMITING; Start at 05:30 Acetaminophen (Tylenol Tab) 650 mg Q6H PRN PO PAIN LEVEL 1-3 OR FEVER; Start at 05:30 Acetaminophen (Tylenol Supp) 650 mg Q4H PRN MT PAIN LEVEL 1-3 OR FEVER; Start 02/06/17 at 05:30 Pantoprazole (Protonix Iv) 40 mg DAILY@06 IV Last administered on 02/06/17 06: 51; Admin Dose 40 MG; Start 02/06/17 at 06:00 Enoxaparin Sodium 40 mg 40 mg DAILY SC ; Start 02/06/17 at 09:00 Imipenem/ Cilastatin Sodium (Primaxin 500 Mg/ 100 ml (Pmx)) 100 ml @ 100 mls/ hr Q8 IVPB Last administered on 02/06/17 06:51; Admin Dose 100 MLS/HR; Start 02/06/17 at 06:00 Lorazepam (Ativan) 1 mg Q2H PRN IV anxiety; Start 02/06/17 at 05:30 DANE STYLES Feb 06, 2017 09:33
[2017-02-06] MEDS ORDERED: ACYCLOVIR 500 MG in SOD CHLORIDE 0.9% 100 ML IVPB SCH ×2 (10:00→11:00)
--- NOTE | 2017-02-06 10:26 | RADRPT ---
Echocardiogram Report Patient Name: ZACH LIZARRAGA Gender: Female Date: 1995 Study Date: 06-Feb-2017 Spent Grain Dryer: Marcelle Jeong RDCS Location: [facility] Ref. Physician: SEB SANCHEZ Quality: Adequate Procedures: Transthoracic echocardiogram with complete 2D, M-Mode, and doppler examination. Indications: elevated troponins. 2D/M Mode Doppler Measurement Value Normal Ranges Measurement Value Normal Ranges LVIDd 2D 3.9 3.5 - 5.6 cm AV Peak Gavin 1.5 m/sec LVIDs 2D 2.0 2.1 - 4.1 cm AV Peak PG 8.6 mmHg LVPWd 2D 0.7 0.6 - 1.1 cm LVOT Peak Gavin 1.5 m/sec IVSd 2D 0.9 0.6 - 1.1 cm LVOT Peak PG 8.7 mmHg AoR Diam 2D 2.5 2.0 - 3.7 cm EDV 2D 67.0 cm3 ESV 2D 7.8 cm3 LA Dimen 2D 2.8 2.3 - 4.0 cm Findings Left Ventricle: Normal left ventricular systolic function. Normal left ventricular cavity size. Normal left ventricular wall thickness. Ejection fraction is visually estimated at 65 %. Right Ventricle: Normal right ventricular size. Normal right ventricular systolic function. Left Atrium: The left atrium is normal in size. Right Atrium: The right atrium is normal in size. Mitral Valve: Normal appearance and function of the mitral valve with trace physiologic regurgitation. Aortic Valve: Normal appearance of the aortic valve. No significant aortic stenosis or insufficiency. Tricuspid Valve: Normal appearance of the tricuspid valve. Tricuspid valve not well visualized. Pulmonic Valve: Pulmonic valve not well visualized. Pericardium: Normal pericardium with no significant pericardial effusion. Aorta: Normal aortic root. IVC: Normal size and normal respiratory collapse consistent with normal right atrial pressure. Conclusions 1.Normal left ventricular systolic function. Normal left ventricular cavity size. Normal left ventricular wall thickness. Ejection fraction is visually estimated at 65 %. 2.No significant valvular stenosis or regurgitation seen. 3.PAP could not be estimated. RA pressure is 3 mmHg. Electronically Signed By: Dc Monroy 06-Feb-2017 10:25:01 -0700 Patient Name: ZACH LIZARRAGA Study Date: 06-Feb-[id number]
[2017-02-06 10:49] LABS: LYMPHOCYTES # 1.3 10^3/ul (0.8-2.9); MONOCYTE # 0.5 10^3/ul (0.3-0.9)
[2017-02-06] MEDS: LORAZEPAM 2 MG INJ IV PRN ×4 (11:02→22:07)
[2017-02-06] MEDS: ACYCLOVIR 500 MG in SOD CHLORIDE 0.9% 100 ML IVPB SCH ×2 (11:54→21:39)
[2017-02-06] MEDS: ACETAMINOPHEN 650 MG SUPP PR PRN ×2 (12:07→20:14)
[2017-02-06] MEDS: IPRATROPIUM (HFA) 12.9 GM INHALER INH SCH (13:00)
[2017-02-06] MEDS: ENOXAPARIN 40 MG/0.4 ML SYG SC SCH (15:49)
--- NOTE | 2017-02-06 16:35 | CONS ---
Date/Time of Note Date/Time of Note DATE: 02/06/17 TIME: 16:09 Assessment/Plan Assessment/Plan Problems: (1) Panhypopituitarism Status: Chronic Comment: Acutely pt. needs to be restarted on the most important of her pituitary hormones: hydrocortisone and ddAVP. This am did receive hydrocortisone 100 mg 1 time and then level was checked 40 minutes later ( consequently was off the chart). However, pt. needs to be continued on hydrocortisone. Pt. may truly have meningoencephalitis for which she increased her risk by lack of medical adherence. Will defer evaluation of this to the primary team. Will continue stress dose for now and wean to maintenance doses as tolerated. with regard to ddAVP, sodium this am was 145 mEq/dL. Will recheck now. Expect it to be significantly higher. Will restart ddAVP when sodium > 146 mEq/dL. Monitor sodium closely. Will also resume LT4. Pt. too altered at this time to take LT4 orally. Will make dose 100 mcg IV. When panhypopit exists, TSH becomes useless test. Will dose off of FT4I levels. 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 I believe there is still room for these hormonal replacements if they are so desired. Consultation Date/Type/Reason Admit Date/Time Feb 06, 2017 at 05:14 Date of Consultation: Feb 06, 2017 Type of Consultation: Endocrinology Reason for Consultation Hypothyroidism Referring Provider: MOOSE CASTILLO of Present Illness 21 y/o H F w/ lifelong h/o panhypopituitarism (mainly hypothyroidism, hypoadrenalism, and DI) and developmental delay. Was in [facility] until last few months until unbeknownst to her parents, she began to stop taking her daily hormone replacement. She remained adherent w/ her ddAVP but otherwise stopped her levothyroxine and hydrocortisone. 2 days ago developed N/V and diarrhea. Mother thought this was due to sick contact w/ the sister who had had something similar. However, pt. subsequently worsened and when mother examined the pill bottles, she discovered pt. had not been taking her meds. She subsequently became altered and agitated and parents brought her here to [facility]. In ER was found to be in extremis. Hypotensive down to 88/40. Tachycardic at 152 bpm. Temp 103.8. WBC 17K. Lactate 6.2, troponin 1.2, Cr 2.9. Had LP showing no red cells, 12 WBC, lymphocytic predominance. TSH found to be 9 (although T4 found to be NL). Endo consulted for "hypothyroidism." Subjective hx not possible: pt non-verbal, pt critical Past Medical History diagnosed at age 3 months when pt. presented w/ poor feeding and jaundice. Mother reports that pt. has lifelong been on adrenal, thyroid, and ddAVP replacement. Only recently switched from injectable to oral [employer]. Notes throughout her life frequent hospitalizations due to illness due to lack of optimization of hormone replacement. More common in youth. (+) associated developmental delay, worse in high school. Never received hGH replacement, never received sex steroid replacement. Medical History: other (panhypopituitarism) Past Surgical History Past Surgical Hx: no surgical history Family History Significant Family History: cancer (breast in MGM), other (alcoholism in PGF) Social History b. [place], hs grad but now not motivated to do anything, unemployed, lives w/ father (parents ) who supports her. Father a basket braider, mother a pipe production worker, has a sister Alcohol Use: none Smoking Status: Never smoker Drug Use: none Exam/Review of Systems Vital Signs Vitals VS - Last 72 Hours, by Label Date Time Temp Pulse Resp B/P Pulse Ox O2 Delivery O2 Flow Rate FiO2 02/06/17 15:45 135 104/62 94 02/06/17 15:30 144 116/59 97 02/06/17 15:00 136 23 126/99 97 Room Air 02/06/17 14:45 143 23 112/50 95 Room Air 02/06/17 14:30 144 41 97 Room Air 02/06/17 14:15 144 96 02/06/17 14:00 148 30 94 Room Air 02/06/17 13:45 141 20 84/51 93 Room Air 02/06/17 13:30 149 19 102/59 93 Room Air 02/06/17 13:15 141 25 105/10 94 Room Air 02/06/17 13:00 152 34 87/66 96 Room Air 02/06/17 12:45 138 20 106/22 95 Room Air 02/06/17 12:30 138 19 124/104 95 Room Air 02/06/17 12:15 145 16 120/70 95 Room Air 02/06/17 12:00 99.5 146 28 117/99 95 Room Air 02/06/17 12:00 140 02/06/17 11:30 139 32 92/76 96 Room Air 02/06/17 11:00 158 25 96 Room Air 02/06/17 10:30 131 29 108/64 Room Air 02/06/17 10:00 136 20 103/53 97 Room Air 02/06/17 09:30 136 38 114/64 100 Nasal Cannula 2.0 02/06/17 09:00 137 31 114/64 Nasal Cannula 2.0 02/06/17 08:30 139 18 119/73 Nasal Cannula 2.0 02/06/17 08:00 134 02/06/17 08:00 98.8 141 28 121/73 Nasal Cannula 2.0 02/06/17 07:30 139 26 91/42 02/06/17 07:00 139 24 98/42 Nasal Cannula 02/06/17 06:30 140 02/06/17 05:57 142 25 94/44 97 Nasal Cannula 4.0 02/06/17 05:00 145 26 105/64 97 Nasal Cannula 4.0 02/06/17 04:21 102.0 142 27 109/56 98 Room Air 02/06/17 02:27 102.8 152 34 101/72 96 02/06/17 00:53 142 29 88/40 100 02/05/17 23:28 3 02/05/17 23:00 147 26 93/56 100 Nasal Cannula 2.0 02/05/17 22:09 103.8 152 20 90/55 98 Vital Signs Date Time Temp Pulse Resp B/P Pulse Ox O2 Delivery O2 Flow Rate FiO2 02/06/17 15:45 135 104/62 94 02/06/17 15:00 23 Room Air 02/06/17 12:00 99.5 02/06/17 09:30 2.0 Intake and Output 02/05/17 02/05/17 02/06/17 15:00 23:00 07:00 Intake Total 150 ml Output Total 770 ml Balance -620 ml Exam Constitutional: non-verbal, obese, No alert (lethargic), No oriented (x 1 only), No well developed Psych: anxiety, other (agitated) Head: atraumatic, normocephalic Eyes: nl conjunctiva, nl sclera ENMT: nl external ears & nose, No mucosa pink and moist (tacky) Neck: non-tender, supple, No bruits, No masses, No thyromegaly Respiratory: clear to auscultation, normal air movement Cardiovascular: nl pulses, regular rate and rhythm, No edema, No murmurs/extra sounds, No rub Gastrointestinal: bowel sounds, nl liver, spleen, non-tender, soft, No mass, No rebound or guarding Genitourinary - Female: other (remarkable for being harpal 1 genitalia at age 21, harpal 1 breast, w/ no axilary or pubic hair) Musculoskeletal: nl extremities to inspection Extremities: normal pulses, No clubbing, No cyanosis, No edema Neurological: confused, nl strength, No nl mental status Results Result Diagram: 02/06/17 0720 02/06/17 0720 Results 24 hrs Laboratory Tests Test 02/05/17 22:35 02/05/17 23:27 02/05/17 23:32 02/06/17 00:45 White Blood Count 17.1 H Red Blood Count 5.40 Hemoglobin 16.8 H Hematocrit 46.7 Mean Corpuscular Volume 86.5 Mean Corpuscular Hemoglobin 31.1 Mean Corpuscular Hemoglobin Concent 36.0 Red Cell Distribution Width 13.1 Platelet Count 213 Mean Platelet Volume 14.2 H Neutrophils % 63.0 Band Neutrophils % 7.0 H Lymphocytes % 18.0 Reactive Lymphocytes % 5.0 Monocytes % 7.0 Neutrophils # 10.8 H Lymphocytes # 3.1 H Monocytes # 1.2 H Platelet Estimate PLT APPEAR ADEQUATE Prothrombin Time 17.0 H Prothrombin Time Ratio 1.3 INR International Normalized Ratio 1.38 Activated Partial Thromboplast Time 40.0 H Sodium Level 138 Potassium Level 3.3 L Chloride Level 97 Carbon Dioxide Level 19 L Anion Gap 25 H Blood Urea Nitrogen 22 H Creatinine 2.96 H Glucose Level 131 Lactic Acid Level 6.2 *H 2.9 H Calcium Level 10.1 Total Bilirubin 2.2 H Direct Bilirubin 0.00 Indirect Bilirubin 2.2 H Aspartate Amino Transf (AST/SGOT) 131 H Alanine Aminotransferase (ALT/SGPT) 79 H Alkaline Phosphatase 67 Ammonia 17 Creatine Kinase 555 H Troponin I 1.170 *H Total Protein 8.7 H Albumin 5.0 H Globulin 3.70 H Albumin/Globulin Ratio 1.35 Lipase 375 H Thyroid Stimulating Hormone (TSH) 9.090 H Salicylates Level < 1.0 L Acetaminophen Level < 10.0 L Ethyl Alcohol Level < 10.0 Urine Color SARWAT Urine Clarity SLIGHTLY CLOUDY Urine pH 5.0 Urine Specific [place] >=1.030 H Urine Ketones TRACE Urine Nitrite NEGATIVE Urine Bilirubin 2+ H Urine Ictotest POSITIVE Urine Urobilinogen 0.2 E.U./dL Urine Leukocyte Esterase NEGATIVE Urine Microscopic RBC NONE SEEN Urine Microscopic WBC NONE SEEN Urine Squamous Epithelial Cells MODERATE Urine Amorphous Urates MANY Urine Bacteria FEW Urine Hemoglobin NEGATIVE Urine Glucose NEGATIVE Urine Total Protein 2+ H Urine Opiates Screen Negative Urine Barbiturates Negative Urine Amphetamines Screen Negative Urine Benzodiazepines Screen Negative Urine Cocaine Screen Negative Urine Cannabinoids Negative Bedside Urine pH (LAB) 5.0 Bedside Urine Protein (LAB) 2+ H Bedside Urine Glucose (UA) Negative Bedside Urine Ketones (LAB) Trace H Bedside Urine Blood Negative Bedside Urine Nitrite (LAB) Negative Bedside Urine Leukocyte Esterase (L Negative Test 02/06/17 01:45 02/06/17 03:44 02/06/17 07:20 02/06/17 12:15 CSF Tubes Submitted 4 CSF Volume 5.0 CSF Appearance CLEAR CSF Color COLORLESS CSF WBC 12 *H CSF RBC 0 CSF Cell Count Tube # TUBE#4 CSF Total Cells Counted 100 CSF Neutrophils % 1 CSF Lymphocytes % 75 CSF Monocytes % 22 CSF Eosinophils % 2 CSF Crenated Cells 0 CSF Glucose 64 CSF Total Protein 40 Lactic Acid Level 1.5 White Blood Count 8.6 # Red Blood Count 4.06 #L Hemoglobin 12.4 # Hematocrit 35.8 #L Mean Corpuscular Volume 88.2 Mean Corpuscular Hemoglobin 30.5 Mean Corpuscular Hemoglobin Concent 34.6 Red Cell Distribution Width 13.3 Platelet Count 96 #L Mean Platelet Volume 14.5 H Neutrophils % 58.0 Band Neutrophils % 21.0 H Lymphocytes % 15.0 L Monocytes % 6.0 Neutrophils # 5.0 Lymphocytes # 1.3 Monocytes # 0.5 Large Platelets FEW Sodium Level 145 H Potassium Level 4.3 Chloride Level 120 #H Carbon Dioxide Level 15 L Anion Gap 14 # Blood Urea Nitrogen 20 Creatinine 1.46 #H Glucose Level 182 Calcium Level 8.5 Magnesium Level 1.5 L Total Bilirubin 1.5 H Direct Bilirubin 0.00 Indirect Bilirubin 1.5 H Aspartate Amino Transf (AST/SGOT) 114 H Alanine Aminotransferase (ALT/SGPT) 70 H Alkaline Phosphatase 47 Troponin I 0.848 *H 0.664 *H Total Protein 6.6 # Albumin 3.6 # Globulin 3.00 Albumin/Globulin Ratio 1.20 Free Thyroxine 0.95 Free Triiodothyronine (T3) pg/mL 2.66 L Random Cortisol > 123.0 Medications Medications Current Medications Dextrose/Sodium Chloride (D5-1/2ns) 1,000 ml @ 125 mls/hr Q8H IV Last administered on 02/06/17 14:28; Admin Dose 125 MLS/HR; Start 02/06/17 at 05:08 Ondansetron HCl (Zofran Inj) 4 mg Q6H PRN IV NAUSEA AND/OR VOMITING; Start at 05:30 Acetaminophen (Tylenol Tab) 650 mg Q6H PRN PO PAIN LEVEL 1-3 OR FEVER; Start at 05:30 Acetaminophen (Tylenol Supp) 650 mg Q4H PRN [place] PAIN LEVEL 1-3 OR FEVER Last administered on 02/06/17 12:07; Admin Dose 650 MG; Start 02/06/17 at 05:30 Pantoprazole (Protonix Iv) 40 mg DAILY@06 IV Last administered on 02/06/17 06: 51; Admin Dose 40 MG; Start 02/06/17 at 06:00 Enoxaparin Sodium 40 mg 40 mg DAILY SC Last administered on 02/06/17 15:49; Admin Dose 40 MG; Start 02/06/17 at 09:00 Imipenem/ Cilastatin Sodium 100 ml @ 100 mls/hr Q8 IVPB Last administered on 14:25; Admin Dose 100 MLS/HR; Start 02/06/17 at 06:00 Acyclovir/Sodium Chloride (Zovirax/NS) 100 ml @ 100 mls/hr Q8 IVPB Last administered on 02/06/17 11:54; Admin Dose 100 MLS/HR; Start 02/06/17 at 11:00 Miscellaneous Information VANCO TR LEVEL PRIOR... ONCE ONCE XX ; Start at 15:00; Stop 02/07/17 at 15:01 Vancomycin HCl/ Sodium Chloride (Vancocin/NS) 150 ml @ 75 mls/hr Q12H IVPB ; Start 02/06/17 at 16:00 Lorazepam (Ativan) 2 mg Q2H PRN IV AGITATION/ANXIETY; Start 02/06/17 at 15:00 Hydrocortisone (Solu-Cortef) 100 mg Q8 IV ; Start 02/06/17 at 16:00 Levothyroxine Sodium (Synthroid Iv) 100 mcg DAILY@06 IV ; Start 02/07/17 at 06: 00 HIREN FARMER MD Feb 06, 2017 16:19
[2017-02-06] MEDS: HYDROCORTISONE 100 MG INJ IV SCH ×2 (16:42→21:39)
[2017-02-06] MEDS: VANCOMYCIN 750 MG in SOD CHLORIDE 0.9% 150 ML IVPB SCH (16:43)
[2017-02-06 17:05] LABS: CREATININE 1.16 mg/dl (0.44-1.00)
[2017-02-06 17:07] LABS: CALCIUM 9.3 mg/dl (8.4-10.2)
[2017-02-06] MEDS ORDERED: MAGNESIUM SULFATE 4 GM/100 ML 100 ML IVPB ONE (17:30)
[2017-02-06] MEDS: DESMOPRESSIN 4 MCG INJ IV SCH (18:24)
--- NOTE | 2017-02-06 18:31 | CONS ---
DATE OF ADMISSION: 02/06/2017 DATE OF CONSULTATION: 02/06/2017 TYPE OF CONSULTATION: Infectious Disease. REASON FOR CONSULTATION: Antibiotic management. HISTORY OF PRESENT ILLNESS: Ninfa Hickey is a 21-year-old female who comes in with al tered mental status and diarrhea. The patient has a number of problems includin. Hypothyroidism. She came in with altered mentation and diarrhea. She was lethargic and inconti nent of bowel. In the emergency room she was febrile to 104, tachycardia in the 150s, blood pressure 90/55. White count was 17,000. She had an anion gap of 25. Her white count was 17.1, H and H of 16.8 and 46.8, platelet count 213,000. Today, her white count was 8.6. Her BUN and creatinine were 20/1.46. A urine is 2+ bilirubin, negative for nitrite. She has a spinal tap, which showed 12 whi te cells, 75% lymphocytes, 22% monocytes, glucose of 64, a protein of 40 and a blood sugar of about [address] scan of the abdomen and pelvis was done which showed no evidence of intra-abdominal or intrapel alanna abscess, distal esophageal wall thickening concerning for esophagitis, mild small bowel ileus pa ttern, likely nonspecific enteric pattern, fat deposition within the cecum, hepatic steatosis, mild splenomegaly. Chest x-ray: Low lung volumes. CT scan of the brain: No evidence of acute intracranial abnormalit y, mass effect. 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 The patient was begun on vancomycin, Acyclovi r and imipenem. PAST MEDICAL HISTORY: Operations as outlined. FAMILY HISTORY: Noncontributory. SOCIAL HISTORY: She does not smoke, drink or abuse drugs. ALLERGIES: NONE TO PENICILLIN, SULFA OR FOODS. MEDICATIONS: Per chart. REVIEW OF SYSTEMS: As per HPI. PHYSICAL EXAMINATION: GENERAL: The patient is a well-developed, well-nourished female who is lethargic, restless in no ac [place] distress. VITAL SIGNS: Stable. She is afebrile. SKIN: Without generalized rash. HEENT: Within normal limits. NECK: Supple. LYMPH NODES: None palpable. CHEST: Decreased breath sounds at the bases. HEART: Without murmur or gallop. ABDOMEN: Soft, nontender, without organosplenomegaly or masses. EXTREMITIES: Without cyanosis, clubbing, or edema. RECTAL AND GENITAL: Deferred. NEUROLOGIC: The patient is confused, moves all extremities. IMPRESSION AND PLAN: I do not believe we are dealing with an aseptic meningitis rather than a bacte rial meningitis. Will cover of course with antibiotics until we get the results, but with a white co unt of 14, mostly lymphocytes and monocytes and with a glucose of 64 and protein of 40 I doubt bacte rial process. I will dictate my findings to the hospitalist. Dictated By: SILVIA MANZO MD, JD/ZACK Conf#: [id number] DID#: [id number]
[2017-02-06] MEDS: ACCU-CHEK XX SCH ×5 (19:00→23:00)
[2017-02-06] MEDS ORDERED: DEXTROSE 50% 50 ML SYRINGE IV PRN ×2 (19:00)
[2017-02-06] MEDS: INSULIN HUMAN REGULAR 100 UNIT in SOD CHLORIDE 0.9% 99 ML IV SCH (21:58)
[2017-02-06] MEDS ORDERED: SOD CHLORIDE 0.9% 1,000 ML IV SCH (23:00)
[2017-02-07] VITALS (31 sets, daily range): BP systolic 82–122; BP diastolic 46–89; PULSE 0–129; RESP 15–35
[2017-02-07] MEDS: ACCU-CHEK XX SCH ×14 (01:00→23:00)
[2017-02-07] MEDS: ALBUTEROL 18 GM INHALER INH SCH ×2 (01:00→09:06)
[2017-02-07 01:18] LABS: CALCIUM 9.3 mg/dl (8.4-10.2); CREATININE 0.94 mg/dl (0.44-1.00); POTASSIUM 4.1 mmol/L (3.5-5.1)
[2017-02-07] MEDS: ACETAMINOPHEN 650 MG SUPP PR PRN (02:17)
[2017-02-07] MEDS: VANCOMYCIN 750 MG in SOD CHLORIDE 0.9% 150 ML IVPB SCH ×2 (04:09→18:45)
[2017-02-07] MEDS: LORAZEPAM 2 MG INJ IV PRN ×2 (04:46→07:50)
[2017-02-07] MEDS: ACYCLOVIR 500 MG in SOD CHLORIDE 0.9% 100 ML IVPB SCH ×3 (05:55→22:00)
[2017-02-07] MEDS: IMIPENEM-CILAST 500MG IV (PMX) 100 ML IVPB SCH ×3 (05:56→23:37)
[2017-02-07] MEDS: PANTOPRAZOLE 40 MG INJ IV SCH (05:56)
[2017-02-07] MEDS: HYDROCORTISONE 100 MG INJ IV SCH ×3 (05:56→23:34)
[2017-02-07] MEDS: LEVOTHYROXINE 100 MCG VIAL IV SCH (05:56)
[2017-02-07 06:09] LABS: ADD SCAN DIFF NO
[2017-02-07 06:20] LABS: ABNORMAL IP MESSAGE 1; BASOPHILS % 0.2 % (0.0-2.0); LYMPHOCYTES # 2.7 10^3/ul (0.8-2.9); LYMPHOCYTES % 21.4 % (18.0-55.0); MEAN CORPUSCULAR HEMOGLOBIN 30.1 pg (29.0-33.0); MEAN CORPUSCULAR HGB CONC 32.4 g/dl (32.0-37.0); MEAN CORPUSCULAR VOLUME 93.2 fl (72.0-104.0); MEAN PLATELET VOLUME 14.6 fl (7.4-10.4); MONOCYTE # 0.6 10^3/ul (0.3-0.9); MONOCYTES % 4.7 % (0.0-13.0); NEUTROPHIL # 9.2 10^3/ul (1.6-7.5); NEUTROPHILS % 73.4 % (30.0-74.0); PLATELET COUNT 99 10^3/UL (140-415); RED BLOOD COUNT 3.65 10^6/ul (4.20-5.40); RED CELL DISTRIBUTION WIDTH 14.8 % (11.5-14.5); WHITE BLOOD COUNT 12.5 10^3/ul (4.8-10.8)
[2017-02-07 06:42] LABS: CREATININE 0.92 mg/dl (0.44-1.00)
[2017-02-07 06:43] LABS: CALCIUM 9.3 mg/dl (8.4-10.2); MAGNESIUM 3.4 mg/dl (1.7-2.5); PHOSPHORUS 2.1 mg/dl (2.5-4.9)
[2017-02-07] MEDS: INSULIN HUMAN REGULAR 100 UNIT in SOD CHLORIDE 0.9% 99 ML IV SCH (07:01)
[2017-02-07] MEDS ORDERED: DEXTROSE 5% 1,000 ML IV SCH (07:30)
[2017-02-07] MEDS: DESMOPRESSIN 4 MCG INJ IV SCH (09:07)
[2017-02-07] MEDS: IPRATROPIUM (HFA) 12.9 GM INHALER INH SCH (09:07)
[2017-02-07] MEDS: ENOXAPARIN 40 MG/0.4 ML SYG SC SCH (09:14)
--- NOTE | 2017-02-07 09:51 | CONS ---
Date/Time of Note Date/Time of Note DATE: 02/07/17 TIME: 09:49 Assessment/Plan Assessment/Plan Chief Complaint/Hosp Course Acute delirium: being treated for meningitis. ?viral. Improving Acute renal failure: resolved with hydration NSTEMI: The most reasonable explanation would be a viral myocarditis which would also explain the remainder of the pt's presentation. Trops downtrending. Normal EF Septic shock: secondary to above. Improved Sinus tachycardia: secondary to above.Improving Panhypopituitarism: endocrine following -no cardiac meds indicated -supportive therapy per primary team Problems: Consultation Date/Type/Reason Admit Date/Time Feb 06, 2017 at 05:14 Initial Consult Date 02/06/17 Type of Consultation: Cardiology Referring Provider: MOOSE CASTILLO 24 HR Interval Summary Free Text/Dictation HR trend is overall better. More awake this am. Turns out that she had not been taking her meds recently. Exam/Review of Systems Vital Signs Vitals Vital Signs Date Time Temp Pulse Resp B/P Pulse Ox O2 Delivery O2 Flow Rate FiO2 02/07/17 08:00 98.7 112 26 102/55 98 02/06/17 15:00 Room Air 02/06/17 09:30 2.0 Intake and Output 02/06/17 02/06/17 02/07/17 15:00 23:00 07:00 Intake Total 1310 ml 1127 ml 609.0 ml Output Total 3000 ml 1440 ml Balance -1690 ml 1127 ml -831.0 ml Exam Constitutional: alert, No oriented Head: atraumatic, normocephalic Neck: No jvd Respiratory: clear to auscultation Cardiovascular: No edema, No regular rate and rhythm (tachycardic ) Gastrointestinal: non-tender, soft Extremities: normal pulses Neurological: No nl mental status Results Result Diagram: 02/07/17 0527 02/07/17 0527 Results 24 hrs Laboratory Tests Test 02/06/17 12:15 02/06/17 16:45 02/06/17 18:29 02/06/17 21:38 Troponin I 0.664 *H Sodium Level 160 #H Potassium Level 4.0 Chloride Level 128 H Carbon Dioxide Level 18 L Anion Gap 18 H Blood Urea Nitrogen 16 Creatinine 1.16 H Glucose Level 275 H Calcium Level 9.3 Bedside Glucose 273 H 218 Test 02/06/17 23:16 02/07/17 00:16 02/07/17 00:20 02/07/17 01:38 Bedside Glucose 211 171 189 Sodium Level 158 H Potassium Level 4.1 Chloride Level 133 H Carbon Dioxide Level 19 L Anion Gap 10 # Blood Urea Nitrogen 14 Creatinine 0.94 Glucose Level 208 Calcium Level 9.3 Test 02/07/17 02:10 02/07/17 03:09 02/07/17 04:08 02/07/17 05:27 Bedside Glucose 162 149 156 White Blood Count 12.5 #H Red Blood Count 3.65 L Hemoglobin 11.0 L Hematocrit 34.0 L Mean Corpuscular Volume 93.2 Mean Corpuscular Hemoglobin 30.1 Mean Corpuscular Hemoglobin Concent 32.4 Red Cell Distribution Width 14.8 H Platelet Count 99 L Mean Platelet Volume 14.6 H Neutrophils % 73.4 Lymphocytes % 21.4 Monocytes % 4.7 Eosinophils % 0.0 Basophils % 0.2 Nucleated Red Blood Cells % 0.0 Neutrophils # 9.2 H Lymphocytes # 2.7 Monocytes # 0.6 Eosinophils # 0.0 Basophils # 0.0 Nucleated Red Blood Cells # 0.0 Sodium Level 162 *H Potassium Level 4.0 Chloride Level 131 H Carbon Dioxide Level 18 L Anion Gap 17 #H Blood Urea Nitrogen 15 Creatinine 0.92 Glucose Level 186 Calcium Level 9.3 Phosphorus Level 2.1 L Magnesium Level 3.4 H Test 02/07/17 05:54 02/07/17 06:54 02/07/17 09:11 Bedside Glucose 162 154 186 Medications Medications Current Medications Ondansetron HCl (Zofran Inj) 4 mg Q6H PRN IV NAUSEA AND/OR VOMITING; Start at 05:30 Acetaminophen (Tylenol Tab) 650 mg Q6H PRN PO PAIN LEVEL 1-3 OR FEVER; Start at 05:30 Acetaminophen (Tylenol Supp) 650 mg Q4H PRN [place] PAIN LEVEL 1-3 OR FEVER Last administered on 02/07/17 02:17; Admin Dose 650 MG; Start 02/06/17 at 05:30 Pantoprazole (Protonix Iv) 40 mg DAILY@06 IV Last administered on 02/07/17 05: 56; Admin Dose 40 MG; Start 02/06/17 at 06:00 Enoxaparin Sodium 40 mg 40 mg DAILY SC Last administered on 02/07/17 09:14; Admin Dose 40 MG; Start 02/06/17 at 09:00 Imipenem/ Cilastatin Sodium 100 ml @ 100 mls/hr Q8 IVPB Last administered on 05:56; Admin Dose 100 MLS/HR; Start 02/06/17 at 06:00 Acyclovir/Sodium Chloride (Zovirax/NS) 100 ml @ 100 mls/hr Q8 IVPB Last administered on 02/07/17 05:55; Admin Dose 100 MLS/HR; Start 02/06/17 at 11:00 Miscellaneous Information VANCO TR LEVEL PRIOR... ONCE ONCE XX ; Start at 15:00; Stop 02/07/17 at 15:01 Vancomycin HCl/ Sodium Chloride (Vancocin/NS) 150 ml @ 75 mls/hr Q12H IVPB Last administered on 02/07/17 04:09; Admin Dose 75 MLS/HR; Start 02/06/17 at 16 :00 Lorazepam (Ativan) 2 mg Q2H PRN IV AGITATION/ANXIETY Last administered on 07:50; Admin Dose 2 MG; Start 02/06/17 at 15:00 Hydrocortisone (Solu-Cortef) 100 mg Q8 IV Last administered on 02/07/17 05:56 ; Admin Dose 100 MG; Start 02/06/17 at 16:00 Levothyroxine Sodium (Synthroid Iv) 100 mcg DAILY@06 IV Last administered on 05:56; Admin Dose 100 MCG; Start 02/07/17 at 06:00 Desmopressin Acetate (Ddavp) 2 mcg BID IV Last administered on 02/07/17 09:07 ; Admin Dose 2 MCG; Start 02/06/17 at 18:30 Diagnostic Test (Pha) (Accu-Chek) 1 ea Q1H XX Last administered on 02/07/17 07 :13; Admin Dose 1 EA; Start 02/06/17 at 19:00 Dextrose (D50w Syringe) 25 ml Q15M PRN IV Till BS 80 mg/dL or above x2; Start 02/06/17 at 19:00 Dextrose 50 ml 50 ml Q15M PRN IV Till BS 80 mg/dL or above x2; Start 02/06/17 at 19:00 Dextrose (D5W) 1,000 ml @ 120 mls/hr Q8H20M IV Last administered on 02/07/17t 07:50; Admin Dose 120 MLS/HR; Start 02/07/17 at 07:30 DANE STYLES Feb 07, 2017 09:51
--- NOTE | 2017-02-07 10:03 | PN ---
Date/Time of Note Date/Time of Note DATE: 02/07/17 TIME: 09:59 Assessment/Plan VTE Prophylaxis VTE Prophylaxis Intervention: LMWH Lines/Catheters IV Catheter Type (from Nrs): Peripheral IV Urinary Cath still in place: Yes Reason Cath still needed: urinary retention, other (indicate) (urinary retention) Assessment/Plan Assessment/Plan 1. Acute encephalopathy 2/2 possible aseptic meningitis 2. Sepsis, likely secondary to meningitis. 3. Hypothyroidism. 4. DAYSI due to prerenal azotemia 5. acute transaminitis 6. Elevated troponin due to demand, s/p cardiolgoy consult 7. Mild hypokalemia. 8. Lactic acidosis, resolved. 9. acute pancreatitis 10. Acute hypernatremia Plan: D/c D5 W, start D5W with 1 ampule of Sodium bicarbonate - at 100 cc/hr BMP at 6 pm Renewed restraints Start seroquel for Agitation ID following Endocrine also following Lovenox for DVT prophylaxis Protonix for GI prophylaxis Subjective 24 Hr Interval Summary Free Text/Dictation pt remains confused, BP stable, tachycardic with HR upto 112 ., WBC 12.5, Na 162 Exam/Review of Systems Vital Signs Vitals Vital Signs Date Time Temp Pulse Resp B/P Pulse Ox O2 Delivery O2 Flow Rate FiO2 02/07/17 08:00 98.7 112 26 102/55 98 02/06/17 15:00 Room Air 02/06/17 09:30 2.0 Intake and Output 02/06/17 02/06/17 02/07/17 15:00 23:00 07:00 Intake Total 1310 ml 1127 ml 609.0 ml Output Total 3000 ml 1440 ml Balance -1690 ml 1127 ml -831.0 ml Exam GENERAL: The patient is a well-developed, well-nourished female who is lethargic, restless in no acute distress. CHEST: Decreased breath sounds at the bases. HEART: Without murmur or gallop. ABDOMEN: Soft, nontender, without organosplenomegaly or masses. EXTREMITIES: Without cyanosis, clubbing, or edema. RECTAL AND GENITAL: Deferred. NEUROLOGIC: The patient is confused, moves all extremities. Results Result Diagram: 02/07/17 0527 02/07/17 0527 Results 24 hrs Laboratory Tests Test 02/06/17 12:15 02/06/17 16:45 02/06/17 18:29 02/06/17 21:38 Troponin I 0.664 *H Sodium Level 160 #H Potassium Level 4.0 Chloride Level 128 H Carbon Dioxide Level 18 L Anion Gap 18 H Blood Urea Nitrogen 16 Creatinine 1.16 H Glucose Level 275 H Calcium Level 9.3 Bedside Glucose 273 H 218 Test 02/06/17 23:16 02/07/17 00:16 02/07/17 00:20 02/07/17 01:38 Bedside Glucose 211 171 189 Sodium Level 158 H Potassium Level 4.1 Chloride Level 133 H Carbon Dioxide Level 19 L Anion Gap 10 # Blood Urea Nitrogen 14 Creatinine 0.94 Glucose Level 208 Calcium Level 9.3 Test 02/07/17 02:10 02/07/17 03:09 02/07/17 04:08 02/07/17 05:27 Bedside Glucose 162 149 156 White Blood Count 12.5 #H Red Blood Count 3.65 L Hemoglobin 11.0 L Hematocrit 34.0 L Mean Corpuscular Volume 93.2 Mean Corpuscular Hemoglobin 30.1 Mean Corpuscular Hemoglobin Concent 32.4 Red Cell Distribution Width 14.8 H Platelet Count 99 L Mean Platelet Volume 14.6 H Neutrophils % 73.4 Lymphocytes % 21.4 Monocytes % 4.7 Eosinophils % 0.0 Basophils % 0.2 Nucleated Red Blood Cells % 0.0 Neutrophils # 9.2 H Lymphocytes # 2.7 Monocytes # 0.6 Eosinophils # 0.0 Basophils # 0.0 Nucleated Red Blood Cells # 0.0 Sodium Level 162 *H Potassium Level 4.0 Chloride Level 131 H Carbon Dioxide Level 18 L Anion Gap 17 #H Blood Urea Nitrogen 15 Creatinine 0.92 Glucose Level 186 Calcium Level 9.3 Phosphorus Level 2.1 L Magnesium Level 3.4 H Test 02/07/17 05:54 02/07/17 06:54 02/07/17 09:11 Bedside Glucose 162 154 186 Medications Medications Current Medications Ondansetron HCl (Zofran Inj) 4 mg Q6H PRN IV NAUSEA AND/OR VOMITING; Start at 05:30 Acetaminophen (Tylenol Tab) 650 mg Q6H PRN PO PAIN LEVEL 1-3 OR FEVER; Start at 05:30 Acetaminophen (Tylenol Supp) 650 mg Q4H PRN [place] PAIN LEVEL 1-3 OR FEVER Last administered on 02/07/17 02:17; Admin Dose 650 MG; Start 02/06/17 at 05:30 Pantoprazole (Protonix Iv) 40 mg DAILY@06 IV Last administered on 02/07/17 05: 56; Admin Dose 40 MG; Start 02/06/17 at 06:00 Enoxaparin Sodium 40 mg 40 mg DAILY SC Last administered on 02/07/17 09:14; Admin Dose 40 MG; Start 02/06/17 at 09:00 Imipenem/ Cilastatin Sodium 100 ml @ 100 mls/hr Q8 IVPB Last administered on 05:56; Admin Dose 100 MLS/HR; Start 02/06/17 at 06:00 Acyclovir/Sodium Chloride (Zovirax/NS) 100 ml @ 100 mls/hr Q8 IVPB Last administered on 02/07/17 05:55; Admin Dose 100 MLS/HR; Start 02/06/17 at 11:00 Miscellaneous Information VANCO TR LEVEL PRIOR... ONCE ONCE XX ; Start at 15:00; Stop 02/07/17 at 15:01 Vancomycin HCl/ Sodium Chloride (Vancocin/NS) 150 ml @ 75 mls/hr Q12H IVPB Last administered on 02/07/17 04:09; Admin Dose 75 MLS/HR; Start 02/06/17 at 16 :00 Lorazepam (Ativan) 2 mg Q2H PRN IV AGITATION/ANXIETY Last administered on 07:50; Admin Dose 2 MG; Start 02/06/17 at 15:00 Hydrocortisone (Solu-Cortef) 100 mg Q8 IV Last administered on 02/07/17 05:56 ; Admin Dose 100 MG; Start 02/06/17 at 16:00 Levothyroxine Sodium (Synthroid Iv) 100 mcg DAILY@06 IV Last administered on 05:56; Admin Dose 100 MCG; Start 02/07/17 at 06:00 Desmopressin Acetate (Ddavp) 2 mcg BID IV Last administered on 02/07/17 09:07 ; Admin Dose 2 MCG; Start 02/06/17 at 18:30 Diagnostic Test (Pha) (Accu-Chek) 1 ea Q1H XX Last administered on 02/07/17 07 :13; Admin Dose 1 EA; Start 02/06/17 at 19:00 Dextrose (D50w Syringe) 25 ml Q15M PRN IV Till BS 80 mg/dL or above x2; Start 02/06/17 at 19:00 Dextrose 50 ml 50 ml Q15M PRN IV Till BS 80 mg/dL or above x2; Start 02/06/17 at 19:00 Dextrose (D5W) 1,000 ml @ 120 mls/hr Q8H20M IV Last administered on 02/07/17 07:50; Admin Dose 120 MLS/HR; Start 02/07/17 at 07:30 SAWYER OLIVAS MD Feb 07, 2017 10:03
[2017-02-07] MEDS: SODIUM BICARBONATE (IV ADD) 50 MEQ in DEXTROSE 5% 1,000 ML IV SCH ×2 (10:29→23:35)
[2017-02-07] MEDS ORDERED: QUETIAPINE 25 MG TAB PO ONE (11:00)
--- NOTE | 2017-02-07 11:06 | CONS ---
Date/Time of Note Date/Time of Note DATE: 02/07/17 TIME: 10:58 Assessment/Plan Assessment/Plan Problems: (1) Aseptic meningitis Status: Acute Comment: White cells in CSF cannot be due to endocrine process. Likely represent inflammatory or viral process which may be responsible for her mental state (2) Panhypopituitarism Status: Chronic Comment: See individual components below (3) Secondary hypocortisolism Status: Chronic Comment: On supratherapeutic doses of hydrocortisone at this time due to acute illness and hormonal deficit. Currently receiving 100 mg IV q8. When more stable, will taper. (4) Secondary hypothyroidism Status: Chronic Comment: On LT4 100 mcg IV daily. Usually receiving 150 mcg po daily so this dose should be sufficient to keep her replete. 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 remains hyponatremic. Will reeval q6 and monitor. Adjust tonicity and rate of fluid depending on sodium levels. (6) Central hypogonadism Status: Chronic Comment: This is obvious on exam. May be corrected in future (7) Hyperglycemia Status: Acute Comment: Between stress dose of steroids and IV dextrose, pt. became hyperglycemic. Now controlled on IV insulin drip (8) Patient's noncompliance with other medical treatment and regimen Status: Chronic Comment: Pt.'s lack of adherence w/ her home hormone replacement regimen likely at least partially responsible for her current state. When her mental status improves, her psyche regarding why she was not taking her meds will need to be explored. Consultation Date/Type/Reason Admit Date/Time Feb 06, 2017 at 05:14 Initial Consult Date 02/06/17 Type of Consultation: Endocrinology Reason for Consultation Hypothyroidism Referring Provider: MOOSE CASTILLO 24 HR Interval Summary Constitutional: disoriented Detailed Summary Respiratory: no complaints Cardiovascular: no complaints Gastrointestinal: no complaints Genitourinary: no complaints Neurologic: confusion Psychological: anxiety, other (agitated) Exam/Review of Systems Vital Signs Vitals VS - Last 72 Hours, by Label Date Time Temp Pulse Resp B/P Pulse Ox O2 Delivery O2 Flow Rate FiO2 02/07/17 08:00 98.7 112 26 102/55 98 02/07/17 07:30 119 27 99 02/07/17 07:00 120 29 99 02/07/17 06:00 114 25 112/59 02/07/17 05:00 116 19 113/55 97 02/07/17 04:00 115 02/07/17 04:00 98.6 02/07/17 04:00 119 19 02/07/17 03:30 124 20 117/77 99 02/07/17 03:00 120 15 97 02/07/17 02:30 118 23 97 02/07/17 02:00 124 19 93/82 97 02/07/17 01:30 123 21 96 02/07/17 01:00 123 26 97 02/07/17 00:30 128 23 88/46 96 02/07/17 00:00 125 23 02/07/17 00:00 125 02/07/17 00:00 97.9 02/06/17 23:30 122 24 97 02/06/17 23:00 127 25 112/57 96 02/06/17 22:30 124 26 96 02/06/17 22:00 129 29 100/72 96 02/06/17 21:30 130 29 125/111 98 02/06/17 21:00 127 24 97/49 96 02/06/17 20:30 135 27 103/74 97 02/06/17 20:00 98.7 02/06/17 20:00 131 20 123/69 02/06/17 20:00 130 02/06/17 19:00 137 32 96/83 98 02/06/17 18:45 134 24 92/52 98 02/06/17 18:30 136 26 102/69 98 02/06/17 18:15 131 25 102/85 97 02/06/17 18:00 131 22 99/73 98 17 17:45 135 29 98 14 17:30 132 21 92/64 98 1417 17:15 136 23 02/06/17 17:00 132 99 1417 16:45 133 96 1417 16:30 141 111/72 96 1417 16:15 130 133/72 97 02/06/17 16:00 98.7 135 90/46 94 1417 16:00 137 1417 15:45 135 104/62 94 1417 15:30 144 116/59 97 4/14/17 15:00 136 23 126/99 97 Room Air 02/06/17 14:45 143 23 112/50 95 Room Air 02/06/17 14:30 144 41 97 Room Air 02/06/17 14:15 144 96 02/06/17 14:00 148 30 94 Room Air 02/06/17 13:45 141 20 84/51 93 Room Air 02/06/17 13:30 149 19 102/59 93 Room Air 02/06/17 13:15 141 25 105/10 94 Room Air 02/06/17 13:00 152 34 87/66 96 Room Air 02/06/17 12:45 138 20 106/22 95 Room Air 02/06/17 12:30 138 19 124/104 95 Room Air 02/06/17 12:15 145 16 120/70 95 Room Air 02/06/17 12:00 99.5 146 28 117/99 95 Room Air 02/06/17 12:00 140 02/06/17 11:30 139 32 92/76 96 Room Air 02/06/17 11:00 158 25 96 Room Air 02/06/17 10:30 131 29 108/64 Room Air 02/06/17 10:00 136 20 103/53 97 Room Air 02/06/17 09:30 136 38 114/64 100 Nasal Cannula 2.0 02/06/17 09:00 137 31 114/64 Nasal Cannula 2.0 02/06/17 08:30 139 18 119/73 Nasal Cannula 2.0 02/06/17 08:00 134 02/06/17 08:00 Nasal Cannula 2.0 02/06/17 08:00 98.8 141 28 121/73 Nasal Cannula 2.0 02/06/17 07:30 139 26 91/42 02/06/17 07:00 139 24 98/42 Nasal Cannula 02/06/17 06:30 140 02/06/17 05:57 142 25 94/44 97 Nasal Cannula 4.0 02/06/17 05:00 145 26 105/64 97 Nasal Cannula 4.0 02/06/17 04:21 102.0 142 27 109/56 98 Room Air 02/06/17 02:27 102.8 152 34 101/72 96 02/06/17 00:53 142 29 88/40 100 02/05/17 23:28 3 02/05/17 23:00 147 26 93/56 100 Nasal Cannula 2.0 02/05/17 22:09 103.8 152 20 90/55 98 Vital Signs Date Time Temp Pulse Resp B/P Pulse Ox O2 Delivery O2 Flow Rate FiO2 02/07/17 08:00 98.7 112 26 102/55 98 02/06/17 15:00 Room Air 02/06/17 09:30 2.0 Intake and Output 02/06/17 02/06/17 02/07/17 15:00 23:00 07:00 Intake Total 1310 ml 1127 ml 612.0 ml Output Total 3000 ml 1440 ml Balance -1690 ml 1127 ml -828.0 ml Exam Constitutional: alert, obese, No oriented Psych: anxiety, other (agitated) Respiratory: clear to auscultation, normal air movement Cardiovascular: nl pulses, regular rate and rhythm, No edema, No murmurs/extra sounds, No rub Gastrointestinal: bowel sounds, nl liver, spleen, non-tender, soft, No mass, No rebound or guarding Musculoskeletal: nl extremities to inspection Extremities: normal pulses, No clubbing, No cyanosis, No edema Neurological: confused Additional Comments Bedside Glucose - 72 Hours Test 02/06/17 18:29 02/06/17 21:38 02/06/17 23:16 02/07/17 00:16 Bedside Glucose 273mg/dL (70-220) H 218mg/dL (70-220) 211mg/dL (70-220) 171mg/dL (70-220) Test 02/07/17 01:38 02/07/17 02:10 02/07/17 03:09 02/07/17 04:08 Bedside Glucose 189mg/dL (70-220) 162mg/dL (70-220) 149mg/dL (70-220) 156mg/dL (70-220) Test 02/07/17 05:54 02/07/17 06:54 02/07/17 09:11 02/07/17 10:32 Bedside Glucose 162mg/dL (70-220) 154mg/dL (70-220) 186mg/dL (70-220) 182mg/dL (70-220) Results Result Diagram: 02/07/17 0527 02/07/17 0527 Results 24 hrs Laboratory Tests Test 02/06/17 12:15 02/06/17 16:45 02/06/17 18:29 02/06/17 21:38 Troponin I 0.664 *H Sodium Level 160 #H Potassium Level 4.0 Chloride Level 128 H Carbon Dioxide Level 18 L Anion Gap 18 H Blood Urea Nitrogen 16 Creatinine 1.16 H Glucose Level 275 H Calcium Level 9.3 Bedside Glucose 273 H 218 Test 02/06/17 23:16 02/07/17 00:16 02/07/17 00:20 02/07/17 01:38 Bedside Glucose 211 171 189 Sodium Level 158 H Potassium Level 4.1 Chloride Level 133 H Carbon Dioxide Level 19 L Anion Gap 10 # Blood Urea Nitrogen 14 Creatinine 0.94 Glucose Level 208 Calcium Level 9.3 Test 02/07/17 02:10 02/07/17 03:09 02/07/17 04:08 02/07/17 05:27 Bedside Glucose 162 149 156 White Blood Count 12.5 #H Red Blood Count 3.65 L Hemoglobin 11.0 L Hematocrit 34.0 L Mean Corpuscular Volume 93.2 Mean Corpuscular Hemoglobin 30.1 Mean Corpuscular Hemoglobin Concent 32.4 Red Cell Distribution Width 14.8 H Platelet Count 99 L Mean Platelet Volume 14.6 H Neutrophils % 73.4 Lymphocytes % 21.4 Monocytes % 4.7 Eosinophils % 0.0 Basophils % 0.2 Nucleated Red Blood Cells % 0.0 Neutrophils # 9.2 H Lymphocytes # 2.7 Monocytes # 0.6 Eosinophils # 0.0 Basophils # 0.0 Nucleated Red Blood Cells # 0.0 Sodium Level 162 *H Potassium Level 4.0 Chloride Level 131 H Carbon Dioxide Level 18 L Anion Gap 17 #H Blood Urea Nitrogen 15 Creatinine 0.92 Glucose Level 186 Calcium Level 9.3 Phosphorus Level 2.1 L Magnesium Level 3.4 H Test 02/07/17 05:54 02/07/17 06:54 02/07/17 09:11 02/07/17 10:32 Bedside Glucose 162 154 186 182 Medications Medications Current Medications Ondansetron HCl (Zofran Inj) 4 mg Q6H PRN IV NAUSEA AND/OR VOMITING; Start at 05:30 Acetaminophen (Tylenol Tab) 650 mg Q6H PRN PO PAIN LEVEL 1-3 OR FEVER; Start at 05:30 Acetaminophen (Tylenol Supp) 650 mg Q4H PRN [place] PAIN LEVEL 1-3 OR FEVER Last administered on 02/07/17 02:17; Admin Dose 650 MG; Start 02/06/17 at 05:30 Pantoprazole (Protonix Iv) 40 mg DAILY@06 IV Last administered on 02/07/17 05: 56; Admin Dose 40 MG; Start 02/06/17 at 06:00 Enoxaparin Sodium 40 mg 40 mg DAILY SC Last administered on 02/07/17 09:14; Admin Dose 40 MG; Start 02/06/17 at 09:00 Imipenem/ Cilastatin Sodium 100 ml @ 100 mls/hr Q8 IVPB Last administered on 05:56; Admin Dose 100 MLS/HR; Start 02/06/17 at 06:00 Acyclovir/Sodium Chloride (Zovirax/NS) 100 ml @ 100 mls/hr Q8 IVPB Last administered on 02/07/17 05:55; Admin Dose 100 MLS/HR; Start 02/06/17 at 11:00 Miscellaneous Information VANCO TR LEVEL PRIOR... ONCE ONCE XX ; Start at 15:00; Stop 02/07/17 at 15:01 Vancomycin HCl/ Sodium Chloride (Vancocin/NS) 150 ml @ 75 mls/hr Q12H IVPB Last administered on 02/07/17 04:09; Admin Dose 75 MLS/HR; Start 02/06/17 at 16 :00 Lorazepam (Ativan) 2 mg Q2H PRN IV AGITATION/ANXIETY Last administered on 07:50; Admin Dose 2 MG; Start 02/06/17 at 15:00 Hydrocortisone (Solu-Cortef) 100 mg Q8 IV Last administered on 02/07/17 05:56 ; Admin Dose 100 MG; Start 02/06/17 at 16:00 Levothyroxine Sodium (Synthroid Iv) 100 mcg DAILY@06 IV Last administered on 05:56; Admin Dose 100 MCG; Start 02/07/17 at 06:00 Desmopressin Acetate (Ddavp) 2 mcg BID IV Last administered on 02/07/17 09:07 ; Admin Dose 2 MCG; Start 02/06/17 at 18:30 Diagnostic Test (Pha) (Accu-Chek) 1 ea Q1H XX Last administered on 02/07/17 07 :13; Admin Dose 1 EA; Start 02/06/17 at 19:00 Dextrose (D50w Syringe) 25 ml Q15M PRN IV Till BS 80 mg/dL or above x2; Start 02/06/17 at 19:00 Dextrose 50 ml 50 ml Q15M PRN IV Till BS 80 mg/dL or above x2; Start 02/06/17 at 19:00 Sodium Bicarbonate/ Dextrose (Na Bicarb/D5W) 1,050 ml @ 100 mls/hr [id number] IV Last administered on 02/07/17 10:29; Admin Dose 100 MLS/HR; Start 02/07/17 at 10:30 Quetiapine Fumarate (Seroquel) 25 mg ONCE ONCE PO ; Start 02/07/17 at 11:00; Stop 02/07/17 at 11:01 Quetiapine Fumarate (Seroquel) 25 mg BID PO ; Start 02/07/17 at 21:00 HIREN FARMER MD Feb 07, 2017 11:06
[2017-02-07 12:29] LABS: CREATININE 0.89 mg/dl (0.44-1.00); POTASSIUM 3.7 mmol/L (3.5-5.1)
[2017-02-07 18:25] LABS: POTASSIUM 3.4 mmol/L (3.5-5.1)
[2017-02-07 18:28] LABS: CREATININE 0.9 mg/dl (0.44-1.00)
[2017-02-07 18:29] LABS: CALCIUM 8.9 mg/dl (8.4-10.2)
[2017-02-07] MEDS: QUETIAPINE 25 MG TAB PO SCH (23:34)
[2017-02-07] MEDS: DESMOPRESSIN 4 MCG INJ SC SCH (23:36)
[2017-02-08] VITALS (38 sets, daily range): BP systolic 87–113; BP diastolic 53–78; PULSE 60–114; RESP 14–37
[2017-02-08] MEDS: DEXTROSE 5% 1,000 ML IV SCH ×3 (00:37→21:08)
[2017-02-08] MEDS: ACCU-CHEK XX SCH ×24 (01:00→23:00)
[2017-02-08] MEDS: VANCOMYCIN 750 MG in SOD CHLORIDE 0.9% 150 ML IVPB SCH ×3 (02:30→18:27)
[2017-02-08 05:26] LABS: ADD SCAN DIFF NO
[2017-02-08 05:39] LABS: INR 1.13; PROTIME 14.5 Sec (12.2-14.2); PT RATIO 1.1
[2017-02-08 05:46] LABS: ABNORMAL IP MESSAGE 1; BASOPHILS % 0.2 % (0.0-2.0); HEMATOCRIT 27.5 % (37.0-47.0); HEMOGLOBIN 9.2 g/dl (12.0-16.0); LYMPHOCYTES # 1.3 10^3/ul (0.8-2.9); LYMPHOCYTES % 19.3 % (18.0-55.0); MEAN CORPUSCULAR HEMOGLOBIN 30.9 pg (29.0-33.0); MEAN CORPUSCULAR HGB CONC 33.5 g/dl (32.0-37.0); MEAN CORPUSCULAR VOLUME 92.3 fl (72.0-104.0); MONOCYTE # 0.2 10^3/ul (0.3-0.9); MONOCYTES % 2.9 % (0.0-13.0); NEUTROPHIL # 5.1 10^3/ul (1.6-7.5); NEUTROPHILS % 77.4 % (30.0-74.0); NUCLEATED RED BLOOD CELLS% 0.3 /100WBC (0.0-0.0); PLATELET COUNT 90 10^3/UL (140-415); RED BLOOD COUNT 2.98 10^6/ul (4.20-5.40); RED CELL DISTRIBUTION WIDTH 14.1 % (11.5-14.5); WHITE BLOOD COUNT 6.5 10^3/ul (4.8-10.8)
[2017-02-08 05:50] LABS: ALBUMIN 3.4 g/dl (3.3-4.9); POTASSIUM 3.3 mmol/L (3.5-5.1)
[2017-02-08 05:52] LABS: ALBUMIN/GLOBULIN RATIO 1.17; BILIRUBIN,INDIRECT 0.7 mg/dl (0-1.1); BILIRUBIN,TOTAL 0.7 mg/dl (0.2-1.3); CREATININE 0.86 mg/dl (0.44-1.00); TOTAL PROTEIN 6.3 g/dl (6.1-8.1)
[2017-02-08 05:53] LABS: CALCIUM 9.1 mg/dl (8.4-10.2)
[2017-02-08] MEDS: LEVOTHYROXINE 100 MCG VIAL IV SCH (06:12)
[2017-02-08] MEDS: HYDROCORTISONE 100 MG INJ IV SCH ×3 (06:12→21:28)
[2017-02-08] MEDS: PANTOPRAZOLE 40 MG INJ IV SCH (06:13)
[2017-02-08] MEDS: ALBUTEROL 18 GM INHALER INH SCH (08:39)
[2017-02-08] MEDS: IPRATROPIUM (HFA) 12.9 GM INHALER INH SCH (08:39)
--- NOTE | 2017-02-08 09:08 | CONS ---
Date/Time of Note Date/Time of Note DATE: 02/08/17 TIME: 09:05 Assessment/Plan Assessment/Plan Chief Complaint/Hosp Course Acute delirium: being treated for meningitis. ?viral. Improving Acute renal failure: resolved with hydration NSTEMI: The most reasonable explanation would be a viral myocarditis which would also explain the remainder of the pt's presentation. Trops downtrending. Normal EF Septic shock: secondary to above. Improved Sinus tachycardia: secondary to above.Improving. Some abrupt fluctuations in HR but doubt atrial tachycardia, more likely vagal changes Panhypopituitarism: endocrine following -no cardiac meds indicated -supportive therapy per primary team -replete K Problems: Consultation Date/Type/Reason Admit Date/Time Feb 06, 2017 at 05:14 Initial Consult Date 02/06/17 Type of Consultation: Cardiology Referring Provider: MOOSE CASTILLO 24 HR Interval Summary Free Text/Dictation No o/n events. HR trend is improving Exam/Review of Systems Vital Signs Vitals Vital Signs Date Time Temp Pulse Resp B/P Pulse Ox O2 Delivery O2 Flow Rate FiO2 02/08/17 04:00 100 02/08/17 02:00 98.7 37 113/60 97 Nasal Cannula 02/06/17 09:30 2.0 Intake and Output 02/07/17 02/07/17 02/08/17 15:00 23:00 07:00 Intake Total 709.0 ml 450 ml 14 ml Output Total 621 ml 210 ml 375 ml Balance 88.0 ml 240 ml -361 ml Exam Constitutional: No alert (sleeping) Head: atraumatic, normocephalic Neck: No jvd Respiratory: clear to auscultation Cardiovascular: regular rate and rhythm, No edema Gastrointestinal: non-tender, soft Results Result Diagram: 02/08/17 0432 02/08/17 0432 Results 24 hrs Laboratory Tests Test 02/07/17 09:11 02/07/17 10:32 02/07/17 11:31 02/07/17 11:58 Bedside Glucose 186 182 159 Sodium Level 158 H Potassium Level 3.7 Chloride Level 131 H Carbon Dioxide Level 21 Anion Gap 10 # Blood Urea Nitrogen 15 Creatinine 0.89 Glucose Level 185 Calcium Level 9.0 Test 02/07/17 14:05 02/07/17 15:05 02/07/17 16:26 02/07/17 17:39 Bedside Glucose 162 161 Vancomycin Level Trough 8.0 L Sodium Level 158 H Potassium Level 3.4 L Chloride Level 126 H Carbon Dioxide Level 22 Anion Gap 13 Blood Urea Nitrogen 16 Creatinine 0.90 Glucose Level 153 Calcium Level 8.9 Test 02/07/17 18:45 02/07/17 20:07 02/07/17 22:24 02/08/17 01:05 Bedside Glucose 133 151 131 HIV (1&2) Antibody NEGATIVE Test 02/08/17 03:37 02/08/17 04:32 02/08/17 05:02 02/08/17 06:16 Bedside Glucose 188 188 148 White Blood Count 6.5 # Red Blood Count 2.98 L Hemoglobin 9.2 L Hematocrit 27.5 L Mean Corpuscular Volume 92.3 Mean Corpuscular Hemoglobin 30.9 Mean Corpuscular Hemoglobin Concent 33.5 Red Cell Distribution Width 14.1 Platelet Count 90 L Mean Platelet Volume Neutrophils % 77.4 H Lymphocytes % 19.3 Monocytes % 2.9 Eosinophils % 0.0 Basophils % 0.2 Nucleated Red Blood Cells % 0.3 H Neutrophils # 5.1 Lymphocytes # 1.3 Monocytes # 0.2 L Eosinophils # 0.0 Basophils # 0.0 Nucleated Red Blood Cells # 0.0 Prothrombin Time 14.5 H Prothrombin Time Ratio 1.1 INR International Normalized Ratio 1.13 Activated Partial Thromboplast Time 34.0 Sodium Level 157 H Potassium Level 3.3 L Chloride Level 124 H Carbon Dioxide Level 22 Anion Gap 14 Blood Urea Nitrogen 20 Creatinine 0.86 Glucose Level 209 Calcium Level 9.1 Total Bilirubin 0.7 Direct Bilirubin 0.00 Indirect Bilirubin 0.7 Aspartate Amino Transf (AST/SGOT) 60 H Alanine Aminotransferase (ALT/SGPT) 53 Alkaline Phosphatase 31 L Total Protein 6.3 Albumin 3.4 Globulin 2.90 Albumin/Globulin Ratio 1.17 Lipase 1407 H Test 02/08/17 07:28 02/08/17 08:07 Bedside Glucose 160 163 Medications Medications Current Medications Ondansetron HCl (Zofran Inj) 4 mg Q6H PRN IV NAUSEA AND/OR VOMITING; Start at 05:30 Acetaminophen (Tylenol Tab) 650 mg Q6H PRN PO PAIN LEVEL 1-3 OR FEVER; Start at 05:30 Acetaminophen (Tylenol Supp) 650 mg Q4H PRN [place] PAIN LEVEL 1-3 OR FEVER Last administered on 02/07/17 02:17; Admin Dose 650 MG; Start 02/06/17 at 05:30 Pantoprazole (Protonix Iv) 40 mg DAILY@06 IV Last administered on 02/08/17 06: 13; Admin Dose 40 MG; Start 02/06/17 at 06:00 Enoxaparin Sodium 40 mg 40 mg DAILY SC Last administered on 02/07/17 09:14; Admin Dose 40 MG; Start 02/06/17 at 09:00 Imipenem/ Cilastatin Sodium 100 ml @ 100 mls/hr Q8 IVPB Last administered on 23:37; Admin Dose 100 MLS/HR; Start 02/06/17 at 06:00 Acyclovir/Sodium Chloride (Zovirax/NS) 100 ml @ 100 mls/hr Q8 IVPB Last administered on 02/07/17 22:00; Admin Dose 100 MLS/HR; Start 02/06/17 at 11:00 Lorazepam (Ativan) 2 mg Q2H PRN IV AGITATION/ANXIETY Last administered on 07:50; Admin Dose 2 MG; Start 02/06/17 at 15:00 Hydrocortisone (Solu-Cortef) 100 mg Q8 IV Last administered on 02/08/17 06:12 ; Admin Dose 100 MG; Start 02/06/17 at 16:00 Levothyroxine Sodium (Synthroid Iv) 100 mcg DAILY@06 IV Last administered on 06:12; Admin Dose 100 MCG; Start 02/07/17 at 06:00 Diagnostic Test (Pha) (Accu-Chek) 1 ea Q1H XX Last administered on 02/08/17 08 :00; Admin Dose 1 EA; Start 02/06/17 at 19:00 Dextrose (D50w Syringe) 25 ml Q15M PRN IV Till BS 80 mg/dL or above x2; Start 02/06/17 at 19:00 Dextrose 50 ml 50 ml Q15M PRN IV Till BS 80 mg/dL or above x2; Start 02/06/17 at 19:00 Sodium Bicarbonate/ Dextrose (Na Bicarb/D5W) 1,050 ml @ 100 mls/hr [id number] IV Last administered on 02/07/17 23:35; Admin Dose 100 MLS/HR; Start 02/07/17 at 10:30 Quetiapine Fumarate (Seroquel) 25 mg BID PO Last administered on 02/07/17 23: 34; Admin Dose 25 MG; Start 02/07/17 at 21:00 Desmopressin Acetate 2 mcg 2 mcg BID SC Last administered on 02/07/17 23:36; Admin Dose 2 MCG; Start 02/07/17 at 21:00 Norepinephrine 16 mg/Dextrose 500 ml @ 1.87 mls/hr TITRATE IV ; Start 02/07/17 at 15:00 Vancomycin HCl 750 mg/Sodium Chloride 150 ml @ 75 mls/hr Q8H IVPB Last administered on 02/08/17 02:30; Admin Dose 75 MLS/HR; Start 02/07/17 at 18:30 Dextrose (D5W) 1,000 ml @ 75 mls/hr [id number] IV Last administered on 02/08/17 00:37; Admin Dose 75 MLS/HR; Start 02/08/17 at 00:00 DANE STYLES Feb 08, 2017 09:08
[2017-02-08] MEDS: ACYCLOVIR 500 MG in SOD CHLORIDE 0.9% 100 ML IVPB SCH ×2 (09:09→14:34)
[2017-02-08] MEDS: IMIPENEM-CILAST 500MG IV (PMX) 100 ML IVPB SCH ×2 (09:09→14:34)
[2017-02-08] MEDS ORDERED: POTASSIUM CHLORIDE 250 ML IVPB ONE (09:30)
[2017-02-08] MEDS: SODIUM BICARBONATE (IV ADD) 50 MEQ in DEXTROSE 5% 1,000 ML IV SCH (09:40)
[2017-02-08] MEDS: QUETIAPINE 25 MG TAB PO SCH ×2 (09:40→21:00)
[2017-02-08] MEDS: ENOXAPARIN 40 MG/0.4 ML SYG SC SCH (09:45)
[2017-02-08] MEDS: DESMOPRESSIN 4 MCG INJ SC SCH ×2 (10:18→21:10)
--- NOTE | 2017-02-08 10:18 | PN ---
Date/Time of Note Date/Time of Note DATE: 02/08/17 TIME: 10:13 Assessment/Plan VTE Prophylaxis VTE Prophylaxis Intervention: LMWH Lines/Catheters IV Catheter Type (from [facility]): Peripheral IV Urinary Cath still in place: Yes Reason Cath still needed: other (indicate) (altrered, need strict I/O ) Assessment/Plan Assessment/Plan 1. Acute encephalopathy 2/2 possible aseptic meningitis 2. Sepsis, likely secondary to meningitis. 3. Panhypopituitarism- Endocrine following 4. DAYSI due to prerenal azotemia 5. acute transaminitis 6. Elevated troponin due to demand, s/p cardiolgoy consult 7. Hypokalemia 8. Lactic acidosis, resolved. 9. acute pancreatitis 10. Acute hypernatremia Plan: Na slowly improving, continue D5W at current rate, pt passed bedside swallow, we will start clear liquid and advance as tolerated KCl 40mEQ IV x 1 dose today d/c restraints more calm with seroquel ID following on multiple iV abx, Cx result pending and other labs sent by ID also pending Endocrine also following Lovenox for DVT prophylaxis Protonix for GI prophylaxis Subjective 24 Hr Interval Summary Free Text/Dictation Na improving slowly,K low, HCo3 22, DDAVP switched to SubQ Exam/Review of Systems Vital Signs Vitals Vital Signs Date Time Temp Pulse Resp B/P Pulse Ox O2 Delivery O2 Flow Rate FiO2 02/08/17 08:00 92 02/08/17 02:00 98.7 37 113/60 97 Nasal Cannula 02/06/17 09:30 2.0 Intake and Output 02/07/17 02/07/17 02/08/17 15:00 23:00 07:00 Intake Total 709.0 ml 750 ml 464 ml Output Total 621 ml 810 ml 375 ml Balance 88.0 ml -60 ml 89 ml Exam GENERAL: more alert today, able to pass bedside swallow study CHEST: Decreased breath sounds at the bases.no crackles, no wheezing HEART: S1 S2 tachycardia, no murmur ABDOMEN: Soft, nontender, without organosplenomegaly or masses. EXTREMITIES: Without cyanosis, clubbing, or edema. RECTAL AND GENITAL: Deferred. NEUROLOGIC: more alert, follows commands , moves all extremities. Results Result Diagram: 02/08/1743102/08/17431 Results 24 hrs Laboratory Tests Test 02/07/17 10:32 02/07/17 11:31 02/07/17 11:58 02/07/17 14:05 Bedside Glucose 182 159 162 Sodium Level 158 H Potassium Level 3.7 Chloride Level 131 H Carbon Dioxide Level 21 Anion Gap 10 # Blood Urea Nitrogen 15 Creatinine 0.89 Glucose Level 185 Calcium Level 9.0 Test 02/07/17 15:05 02/07/17 16:26 02/07/17 17:39 02/07/17 18:45 Vancomycin Level Trough 8.0 L Bedside Glucose 161 133 Sodium Level 158 H Potassium Level 3.4 L Chloride Level 126 H Carbon Dioxide Level 22 Anion Gap 13 Blood Urea Nitrogen 16 Creatinine 0.90 Glucose Level 153 Calcium Level 8.9 Test 02/07/17 20:07 02/07/17 22:24 02/08/17 01:05 02/08/17 03:37 HIV (1&2) Antibody NEGATIVE Bedside Glucose 151 131 188 Test 02/08/17 04:32 02/08/17 05:02 02/08/17 06:16 02/08/17 07:28 White Blood Count 6.5 # Red Blood Count 2.98 L Hemoglobin 9.2 L Hematocrit 27.5 L Mean Corpuscular Volume 92.3 Mean Corpuscular Hemoglobin 30.9 Mean Corpuscular Hemoglobin Concent 33.5 Red Cell Distribution Width 14.1 Platelet Count 90 L Mean Platelet Volume Neutrophils % 77.4 H Lymphocytes % 19.3 Monocytes % 2.9 Eosinophils % 0.0 Basophils % 0.2 Nucleated Red Blood Cells % 0.3 H Neutrophils # 5.1 Lymphocytes # 1.3 Monocytes # 0.2 L Eosinophils # 0.0 Basophils # 0.0 Nucleated Red Blood Cells # 0.0 Prothrombin Time 14.5 H Prothrombin Time Ratio 1.1 INR International Normalized Ratio 1.13 Activated Partial Thromboplast Time 34.0 Sodium Level 157 H Potassium Level 3.3 L Chloride Level 124 H Carbon Dioxide Level 22 Anion Gap 14 Blood Urea Nitrogen 20 Creatinine 0.86 Glucose Level 209 Calcium Level 9.1 Total Bilirubin 0.7 Direct Bilirubin 0.00 Indirect Bilirubin 0.7 Aspartate Amino Transf (AST/SGOT) 60 H Alanine Aminotransferase (ALT/SGPT) 53 Alkaline Phosphatase 31 L Total Protein 6.3 Albumin 3.4 Globulin 2.90 Albumin/Globulin Ratio 1.17 Lipase 1407 H Bedside Glucose 188 148 160 Test 02/08/17 08:07 02/08/17 09:08 Bedside Glucose 163 170 Medications Medications Current Medications Ondansetron HCl (Zofran Inj) 4 mg Q6H PRN IV NAUSEA AND/OR VOMITING; Start at 05:30 Acetaminophen (Tylenol Tab) 650 mg Q6H PRN PO PAIN LEVEL 1-3 OR FEVER; Start at 05:30 Acetaminophen (Tylenol Supp) 650 mg Q4H PRN [place] PAIN LEVEL 1-3 OR FEVER Last administered on 02/07/17 02:17; Admin Dose 650 MG; Start 02/06/17 at 05:30 Pantoprazole (Protonix Iv) 40 mg DAILY@06 IV Last administered on 02/08/17 06: 13; Admin Dose 40 MG; Start 02/06/17 at 06:00 Enoxaparin Sodium 40 mg 40 mg DAILY SC Last administered on 02/08/17 09:45; Admin Dose 40 MG; Start 02/06/17 at 09:00 Imipenem/ Cilastatin Sodium 100 ml @ 100 mls/hr Q8 IVPB Last administered on 09:09; Admin Dose 100 MLS/HR; Start 02/06/17 at 06:00 Acyclovir/Sodium Chloride (Zovirax/NS) 100 ml @ 100 mls/hr Q8 IVPB Last administered on 02/08/17 09:09; Admin Dose 100 MLS/HR; Start 02/06/17 at 11:00 Lorazepam (Ativan) 2 mg Q2H PRN IV AGITATION/ANXIETY Last administered on 07:50; Admin Dose 2 MG; Start 02/06/17 at 15:00 Hydrocortisone (Solu-Cortef) 100 mg Q8 IV Last administered on 02/08/17 06:12 ; Admin Dose 100 MG; Start 02/06/17 at 16:00 Levothyroxine Sodium (Synthroid Iv) 100 mcg DAILY@06 IV Last administered on 06:12; Admin Dose 100 MCG; Start 02/07/17 at 06:00 Diagnostic Test (Pha) (Accu-Chek) 1 ea Q1H XX Last administered on 02/08/17 08 :00; Admin Dose 1 EA; Start 02/06/17 at 19:00 Dextrose (D50w Syringe) 25 ml Q15M PRN IV Till BS 80 mg/dL or above x2; Start 02/06/17 at 19:00 Dextrose 50 ml 50 ml Q15M PRN IV Till BS 80 mg/dL or above x2; Start 02/06/17 at 19:00 Sodium Bicarbonate/ Dextrose (Na Bicarb/D5W) 1,050 ml @ 100 mls/hr [id number] IV Last administered on 02/08/17 09:40; Admin Dose 100 MLS/HR; Start 02/07/17 at 10:30 Quetiapine Fumarate (Seroquel) 25 mg BID PO Last administered on 02/08/17 09: 40; Admin Dose 25 MG; Start 02/07/17 at 21:00 Desmopressin Acetate 2 mcg 2 mcg BID SC Last administered on 02/07/17 23:36; Admin Dose 2 MCG; Start 02/07/17 at 21:00 Norepinephrine 16 mg/Dextrose 500 ml @ 1.87 mls/hr TITRATE IV ; Start 02/07/17 at 15:00 Vancomycin HCl 750 mg/Sodium Chloride 150 ml @ 75 mls/hr Q8H IVPB Last administered on 02/08/17 02:30; Admin Dose 75 MLS/HR; Start 02/07/17 at 18:30 Dextrose 1,000 ml @ 75 mls/hr [id number] IV Last administered on 02/08/17 00:37 ; Admin Dose 75 MLS/HR; Start 02/08/17 at 00:00 Potassium Chloride (KCl 40 MEQ/250 ML NS) 250 ml @ 62.5 mls/hr ONCE ONCE IVPB ; Start 02/08/17 at 09:30; Stop 02/08/17 at 13:29 SAWYER OLIVAS MD Feb 08, 2017 10:18
[2017-02-08] MEDS: INSULIN HUMAN REGULAR 100 UNIT in SOD CHLORIDE 0.9% 99 ML IV SCH (10:49)
--- NOTE | 2017-02-08 11:09 | CONS ---
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 remains hypernatremic. Will increase D5W to try to lower sodium. Once normalizes, should be able to maintain it w/ ddAVP but likely need to close water deficit. (3) Secondary hypocortisolism Status: Chronic Comment: Pt. stabilized. Will begin to wean hydrocortisone slowly. Will lower dose from 100 mg IV q8 to 50 mg IV q8. Should have no impact on BP. (4) Hyperglycemia Status: Acute Comment: Due to combination of stress dose steroids and IV dextrose. Will be interesting to see what glucose is when steroids at maintenance and off IV dextrose. Cont. IV insulin drip for now. (5) Secondary hypothyroidism Status: Chronic Comment: Cont. IV LT4 100 mcg/d for now. Consultation Date/Type/Reason Admit Date/Time Feb 06, 2017 at 05:14 Initial Consult Date 02/06/17 Type of Consultation: Endocrinology Reason for Consultation Hypothyroidism Referring Provider: MOOSE CASTILLO 24 HR Interval Summary Free Text/Dictation While pt. is sleeping, of note mother states pt. more mentally normal and herself today. Subjective hx not possible: pt non-verbal (sleeping) Exam/Review of Systems Vital Signs Vitals Bedside Glucose - 72 Hours Test 02/06/17 18:29 02/06/17 21:38 02/06/17 23:16 02/07/17 00:16 Bedside Glucose 273mg/dL (70-220) H 218mg/dL (70-220) 211mg/dL (70-220) 171mg/dL (70-220) Test 02/07/17 01:38 02/07/17 02:10 02/07/17 03:09 02/07/17 04:08 Bedside Glucose 189mg/dL (70-220) 162mg/dL (70-220) 149mg/dL (70-220) 156mg/dL (70-220) Test 02/07/17 05:54 02/07/17 06:54 02/07/17 09:11 02/07/17 10:32 Bedside Glucose 162mg/dL (70-220) 154mg/dL (70-220) 186mg/dL (70-220) 182mg/dL (70-220) Test 02/07/17 11:31 02/07/17 14:05 02/07/17 16:26 02/07/17 18:45 Bedside Glucose 159mg/dL (70-220) 162mg/dL (70-220) 161mg/dL (70-220) 133mg/dL (70-220) Test 02/07/17 22:24 02/08/17 01:05 02/08/17 03:37 02/08/17 05:02 Bedside Glucose 151mg/dL (70-220) 131mg/dL (70-220) 188mg/dL (70-220) 188mg/dL (70-220) Test 02/08/17 06:16 02/08/17 07:28 02/08/17 08:07 02/08/17 09:08 Bedside Glucose 148mg/dL (70-220) 160mg/dL (70-220) 163mg/dL (70-220) 170mg/dL (70-220) Test 02/08/17 10:16 Bedside Glucose 179mg/dL (70-220) Vital Signs Date Time Temp Pulse Resp B/P Pulse Ox O2 Delivery O2 Flow Rate FiO2 02/08/17 08:00 92 02/08/17 02:00 98.7 37 113/60 97 Nasal Cannula 02/06/17 09:30 2.0 Intake and Output 02/07/17 02/07/17 02/08/17 15:00 23:00 07:00 Intake Total 709.0 ml 750 ml 464 ml Output Total 621 ml 810 ml 375 ml Balance 88.0 ml -60 ml 89 ml Exam Constitutional: obese, No alert Respiratory: clear to auscultation, normal air movement Cardiovascular: nl pulses, regular rate and rhythm, No edema, No murmurs/extra sounds, No rub Gastrointestinal: bowel sounds, nl liver, spleen, non-tender, soft, No mass, No rebound or guarding Musculoskeletal: nl extremities to inspection Extremities: normal pulses, No clubbing, No cyanosis, No edema Neurological: other (asleep) Additional Comments Bedside Glucose - 72 Hours Test 02/06/17 18:29 02/06/17 21:38 02/06/17 23:16 02/07/17 00:16 Bedside Glucose 273mg/dL (70-220) H 218mg/dL (70-220) 211mg/dL (70-220) 171mg/dL (70-220) Test 02/07/17 01:38 02/07/17 02:10 02/07/17 03:09 02/07/17 04:08 Bedside Glucose 189mg/dL (70-220) 162mg/dL (70-220) 149mg/dL (70-220) 156mg/dL (70-220) Test 02/07/17 05:54 02/07/17 06:54 02/07/17 09:11 02/07/17 10:32 Bedside Glucose 162mg/dL (70-220) 154mg/dL (70-220) 186mg/dL (70-220) 182mg/dL (70-220) Test 02/07/17 11:31 02/07/17 14:05 02/07/17 16:26 02/07/17 18:45 Bedside Glucose 159mg/dL (70-220) 162mg/dL (70-220) 161mg/dL (70-220) 133mg/dL (70-220) Test 02/07/17 22:24 02/08/17 01:05 02/08/17 03:37 02/08/17 05:02 Bedside Glucose 151mg/dL (70-220) 131mg/dL (70-220) 188mg/dL (70-220) 188mg/dL (70-220) Test 02/08/17 06:16 02/08/17 07:28 02/08/17 08:07 02/08/17 09:08 Bedside Glucose 148mg/dL (70-220) 160mg/dL (70-220) 163mg/dL (70-220) 170mg/dL (70-220) Test 02/08/17 10:16 Bedside Glucose 179mg/dL (70-220) Results Result Diagram: 02/08/17 0432 02/08/17 0432 Results 24 hrs Laboratory Tests Test 02/07/17 11:31 02/07/17 11:58 02/07/17 14:05 02/07/17 15:05 Bedside Glucose 159 162 Sodium Level 158 H Potassium Level 3.7 Chloride Level 131 H Carbon Dioxide Level 21 Anion Gap 10 # Blood Urea Nitrogen 15 Creatinine 0.89 Glucose Level 185 Calcium Level 9.0 Vancomycin Level Trough 8.0 L Test 02/07/17 16:26 02/07/17 17:39 02/07/17 18:45 02/07/17 20:07 Bedside Glucose 161 133 Sodium Level 158 H Potassium Level 3.4 L Chloride Level 126 H Carbon Dioxide Level 22 Anion Gap 13 Blood Urea Nitrogen 16 Creatinine 0.90 Glucose Level 153 Calcium Level 8.9 HIV (1&2) Antibody NEGATIVE Test 02/07/17 22:24 02/08/17 01:05 02/08/17 03:37 02/08/17 04:32 Bedside Glucose 151 131 188 White Blood Count 6.5 # Red Blood Count 2.98 L Hemoglobin 9.2 L Hematocrit 27.5 L Mean Corpuscular Volume 92.3 Mean Corpuscular Hemoglobin 30.9 Mean Corpuscular Hemoglobin Concent 33.5 Red Cell Distribution Width 14.1 Platelet Count 90 L Mean Platelet Volume Neutrophils % 77.4 H Lymphocytes % 19.3 Monocytes % 2.9 Eosinophils % 0.0 Basophils % 0.2 Nucleated Red Blood Cells % 0.3 H Neutrophils # 5.1 Lymphocytes # 1.3 Monocytes # 0.2 L Eosinophils # 0.0 Basophils # 0.0 Nucleated Red Blood Cells # 0.0 Prothrombin Time 14.5 H Prothrombin Time Ratio 1.1 INR International Normalized Ratio 1.13 Activated Partial Thromboplast Time 34.0 Sodium Level 157 H Potassium Level 3.3 L Chloride Level 124 H Carbon Dioxide Level 22 Anion Gap 14 Blood Urea Nitrogen 20 Creatinine 0.86 Glucose Level 209 Calcium Level 9.1 Total Bilirubin 0.7 Direct Bilirubin 0.00 Indirect Bilirubin 0.7 Aspartate Amino Transf (AST/SGOT) 60 H Alanine Aminotransferase (ALT/SGPT) 53 Alkaline Phosphatase 31 L Total Protein 6.3 Albumin 3.4 Globulin 2.90 Albumin/Globulin Ratio 1.17 Lipase 1407 H Test 02/08/17 05:02 02/08/17 06:16 02/08/17 07:28 02/08/17 08:07 Bedside Glucose 188 148 160 163 Test 02/08/17 09:08 02/08/17 10:16 Bedside Glucose 170 179 Medications Medications Current Medications Ondansetron HCl (Zofran Inj) 4 mg Q6H PRN IV NAUSEA AND/OR VOMITING; Start at 05:30 Acetaminophen (Tylenol Tab) 650 mg Q6H PRN PO PAIN LEVEL 1-3 OR FEVER; Start at 05:30 Acetaminophen (Tylenol Supp) 650 mg Q4H PRN [place] PAIN LEVEL 1-3 OR FEVER Last administered on 02/07/17 02:17; Admin Dose 650 MG; Start 02/06/17 at 05:30 Pantoprazole (Protonix Iv) 40 mg DAILY@06 IV Last administered on 02/08/17 06: 13; Admin Dose 40 MG; Start 02/06/17 at 06:00 Enoxaparin Sodium 40 mg 40 mg DAILY SC Last administered on 02/08/17 09:45; Admin Dose 40 MG; Start 02/06/17 at 09:00 Imipenem/ Cilastatin Sodium 100 ml @ 100 mls/hr Q8 IVPB Last administered on 09:09; Admin Dose 100 MLS/HR; Start 02/06/17 at 06:00 Acyclovir/Sodium Chloride (Zovirax/NS) 100 ml @ 100 mls/hr Q8 IVPB Last administered on 02/08/17 09:09; Admin Dose 100 MLS/HR; Start 02/06/17 at 11:00 Lorazepam (Ativan) 2 mg Q2H PRN IV AGITATION/ANXIETY Last administered on 07:50; Admin Dose 2 MG; Start 02/06/17 at 15:00 Hydrocortisone (Solu-Cortef) 100 mg Q8 IV Last administered on 02/08/17 06:12 ; Admin Dose 100 MG; Start 02/06/17 at 16:00 Levothyroxine Sodium (Synthroid Iv) 100 mcg DAILY@06 IV Last administered on 06:12; Admin Dose 100 MCG; Start 02/07/17 at 06:00 Diagnostic Test (Pha) (Accu-Chek) 1 ea Q1H XX Last administered on 02/08/17 10 :39; Admin Dose 1 EA; Start 02/06/17 at 19:00 Dextrose (D50w Syringe) 25 ml Q15M PRN IV Till BS 80 mg/dL or above x2; Start 02/06/17 at 19:00 Dextrose (D50w Syringe) 50 ml Q15M PRN IV Till BS 80 mg/dL or above x2; Start 02/06/17 at 19:00 Quetiapine Fumarate (Seroquel) 25 mg BID PO Last administered on 02/08/17 09: 40; Admin Dose 25 MG; Start 02/07/17 at 21:00 Desmopressin Acetate 2 mcg 2 mcg BID SC Last administered on 02/08/17 10:18; Admin Dose 2 MCG; Start 02/07/17 at 21:00 Norepinephrine 16 mg/Dextrose 500 ml @ 1.87 mls/hr TITRATE IV ; Start 02/07/17 at 15:00 Vancomycin HCl 750 mg/Sodium Chloride 150 ml @ 75 mls/hr Q8H IVPB Last administered on 02/08/17 10:19; Admin Dose 75 MLS/HR; Start 02/07/17 at 18:30 Dextrose 1,000 ml @ 75 mls/hr [id number] IV Last administered on 02/08/17 00:37 ; Admin Dose 75 MLS/HR; Start 02/08/17 at 00:00 Potassium Chloride (KCl 40 MEQ/250 ML NS) 250 ml @ 62.5 mls/hr ONCE ONCE IVPB Last administered on 02/08/17 10:19; Admin Dose 62.5 MLS/HR; Start 02/08/17 at 09:30; Stop 02/08/17 at 13:29 HIREN FARMER MD Feb 08, 2017 11:09
--- NOTE | 2017-02-08 19:58 | PN ---
DATE: 02/08/2017 INFECTIOUS DISEASE PROGRESS NOTE SUBJECTIVE: The patient is doing better today, less confused, more calm. She is awake and looks co mfortable, denies pain, no fevers. Temperature 97.4, pulse 85, respirations 14, blood pressure 100/ 63, saturation 97% on nasal cannula. WBC 6.5, H and H 9.2 and 27.5, platelets 90, neutrophils 77.4, no bands. BUN 20, creatinine 0.86. MICROBIOLOGY: All cultures have been negative. CSF culture revealed no growth. ANTIMICROBIALS: The patient is on vancomycin, acyclovir, imipenem. Serology for HIV came back nega tive. PHYSICAL EXAMINATION: GENERAL: Obese, well-developed young woman who is awake, in no distress. HEENT: Head atraumatic, normocephalic. Sclerae anicteric. Buccal mucosa dry. NECK: Obese. CHEST: Rise symmetrical. Breath sounds clear bilaterally. HEART: S1, S2. ABDOMEN: Soft. Bowel tones present. EXTREMITIES: Without cyanosis. ASSESSMENT: 1. Acute encephalopathy secondary to #2. 2. Viral meningitis. 3. Panhypopituitarism, patient is being followed by endocrine team. 4. Acute kidney injury. 5. Status post lactic acidosis. PLAN: The patient remains stable, overall improving. All cultures are negative. HIV negative. We are going to discontinue her antibiotics, discontinue isolation, continue present care as per prima team and other consultants. Dictated By: CHRISTOPHE COOLEY PRINCIPAL TECHNICAL SPECIALIST for SILVIA MANZO MD NI/NTS Conf#: [id number] DID#: [id number] CC: SEB SANCHEZ MD;*EndCC*
[2017-02-08 20:27] LABS: POTASSIUM 3.4 mmol/L (3.5-5.1)
[2017-02-08 20:30] LABS: CREATININE 0.7 mg/dl (0.44-1.00)
[2017-02-08 20:31] LABS: CALCIUM 8.5 mg/dl (8.4-10.2)
[2017-02-08] MEDS ORDERED: POTASSIUM CHLORIDE (SR) 20 MEQ TAB PO STA (22:51)
[2017-02-08] MEDS ORDERED: POTASSIUM CHLORIDE 20 MEQ POWDER FOR ORAL SOLN NGT SCH (23:30)
[2017-02-09] VITALS (19 sets, daily range): BP systolic 87–129; BP diastolic 45–86; PULSE 41–61; RESP 14–26
[2017-02-09] MEDS: ACCU-CHEK XX SCH ×10 (00:08→20:28)
[2017-02-09] MEDS: DEXTROSE 5% 1,000 ML IV SCH (04:23)
[2017-02-09] MEDS: PANTOPRAZOLE 40 MG INJ IV SCH (05:38)
[2017-02-09] MEDS: HYDROCORTISONE 100 MG INJ IV SCH (05:38)
[2017-02-09] MEDS: LEVOTHYROXINE 100 MCG VIAL IV SCH (05:38)
[2017-02-09 06:28] LABS: ADD SCAN DIFF NO
[2017-02-09 06:40] LABS: ABNORMAL IP MESSAGE 1; HEMATOCRIT 26.1 % (37.0-47.0); HEMOGLOBIN 9.1 g/dl (12.0-16.0); LYMPHOCYTES # 1.8 10^3/ul (0.8-2.9); MEAN CORPUSCULAR HGB CONC 34.9 g/dl (32.0-37.0); MEAN CORPUSCULAR VOLUME 88.8 fl (72.0-104.0); MEAN PLATELET VOLUME 13.9 fl (7.4-10.4); MONOCYTE # 0.3 10^3/ul (0.3-0.9); MONOCYTES % 4.6 % (0.0-13.0); NEUTROPHIL # 3.5 10^3/ul (1.6-7.5); NEUTROPHILS % 62.5 % (30.0-74.0); PLATELET COUNT 97 10^3/UL (140-415); RED BLOOD COUNT 2.94 10^6/ul (4.20-5.40); RED CELL DISTRIBUTION WIDTH 12.3 % (11.5-14.5); WHITE BLOOD COUNT 5.7 10^3/ul (4.8-10.8)
[2017-02-09 06:51] LABS: INR 1.26; PROTIME 15.9 Sec (12.2-14.2); PT RATIO 1.2
[2017-02-09 06:52] LABS: PARTIAL THROMBOPLASTIN TIME 30.8 Sec (25.0-35.0)
[2017-02-09 06:53] LABS: ALBUMIN 3.1 g/dl (3.3-4.9)
[2017-02-09 06:54] LABS: POTASSIUM 3.7 mmol/L (3.5-5.1)
[2017-02-09 06:55] LABS: CREATININE 0.66 mg/dl (0.44-1.00)
[2017-02-09 06:56] LABS: ALBUMIN/GLOBULIN RATIO 1.24; BILIRUBIN,INDIRECT 0.5 mg/dl (0-1.1); BILIRUBIN,TOTAL 0.5 mg/dl (0.2-1.3); CALCIUM 8.5 mg/dl (8.4-10.2); TOTAL PROTEIN 5.6 g/dl (6.1-8.1)
[2017-02-09 07:02] LABS: PHOSPHORUS 2.6 mg/dl (2.5-4.9)
[2017-02-09 07:03] LABS: MAGNESIUM 2.3 mg/dl (1.7-2.5)
--- NOTE | 2017-02-09 08:28 | PN ---
DATE: 02/07/2017 SUBJECTIVE: The patient is awake, very confused and restless. She is tachycardic, in no distress. No fevers overnight. T-max yesterday was 102, pulse 115, respirations 24, blood pressure 102/55, s aturation 97% on nasal cannula. LABORATORY DATA: WBC 12.5, H and H 11 and 34, platelets 98, neutrophils 73.4. No bands. BUN 16, c reatinine 0.90. came back negative for nitrite and leukocyte esterase. MICROBIOLOGY: Blood culture, urine culture . Influenza swab negative. Nares swab negative fo r cultures preliminary negative. ANTIMICROBIALS: The patient is on: 1. IV vancomycin. 2. Solu-Cortef. 3. Acyclovir. 4. Imipenem. PHYSICAL EXAMINATION: GENERAL: This is an obese, well-developed, young woman who is lying comfortably in bed. HEENT: Head atraumatic, normocephalic. Sclerae anicteric. Buccal mucosa dry. NECK: Supple. CHEST: Rise symmetrical. Breath sounds diminished at bases. HEART: S1, S2. ABDOMEN: Soft. Bowel sounds present. EXTREMITIES: With trace edema. ASSESSMENT: 1. Sepsis with acute encephalopathy, fevers and tachycardia. 2. Viral meningitis. 3. Diabetes insipidus. 4. Diarrhea. PLAN: Final cultures are pending. The patient is being followed by multiple consultants. We will check her HIV status. Continue her on broad spectrum antibiotics for now. Dictated By: CHRISTOPHE COOLEY TELECOM SALES CONSULTANT for SILVIA MANZO MD NI/NTS Conf#: [id number] DID#: [id number] CC: SEB SANCHEZ MD;*EndCC*
--- NOTE | 2017-02-09 08:45 | PN ---
Date/Time of Note Date/Time of Note DATE: 02/09/17 TIME: 08:43 Assessment/Plan VTE Prophylaxis VTE Prophylaxis Intervention: LMWH Lines/Catheters IV [facility]ter Type (from [facility]): Peripheral IV Urinary Cath still in place: Yes Reason Cath still needed: other (indicate) (d/c coyne catheter ) Assessment/Plan Assessment/Plan 1. Acute encephalopathy 2/2 possible aseptic meningitis 2. Sepsis, likely secondary to meningitis. 3. Panhypopituitarism- Endocrine following 4. DAYSI due to prerenal azotemia 5. acute transaminitis 6. Elevated troponin due to demand, s/p cardiolgoy consult 7. Hypokalemia 8. Lactic acidosis, resolved. 9. acute pancreatitis 10. Acute hypernatremia - improved to normal Plan: d/c D5 W< titrate insulin gtt to off, Start diabetic diet out of bed to chair continue seroquel d/c coyne catheter ID following on multiple iV abx, Cx result pending and other labs sent by ID also pending Endocrine also following Lovenox for DVT prophylaxis Protonix for GI prophylaxis Subjective 24 Hr Interval Summary Free Text/Dictation pt doing better, more alert today, BS has been high, pt is on D5W , tolerated clear liquid diet Exam/Review of Systems Vital Signs Vitals Vital Signs Date Time Temp Pulse Resp B/P Pulse Ox O2 Delivery O2 Flow Rate FiO2 02/09/17 06:00 61 19 112/85 96 Room Air 02/09/17 04:00 97.8 02/08/17 18:00 2.0 Intake and Output 02/08/17 02/08/17 02/09/17 14:59 22:59 06:59 Intake Total 570 ml 2425 ml 1182 ml Output Total 295 ml 245 ml 255 ml Balance 275 ml 2180 ml 927 ml Exam GENERAL: The patient is a well-developed, well-nourished female who is lethargic, restless in no acute distress. CHEST: Decreased breath sounds at the bases. HEART: Without murmur or gallop. ABDOMEN: Soft, nontender, without organosplenomegaly or masses. EXTREMITIES: Without cyanosis, clubbing, or edema. RECTAL AND GENITAL: Deferred. NEUROLOGIC: The patient is confused, moves all extremities. Results Result Diagram: 02/09/17 0550 02/09/17 0550 Results 24 hrs Laboratory Tests Test 02/08/17 09:08 02/08/17 10:16 02/08/17 11:35 02/08/17 13:10 Bedside Glucose 170 179 154 151 Test 02/08/17 14:32 02/08/17 16:35 02/08/17 17:30 02/08/17 18:26 Bedside Glucose 153 145 156 Vancomycin Level Trough 14.8 Test 02/08/17 19:58 02/08/17 20:04 02/08/17 21:13 02/08/17 23:19 Bedside Glucose 193 189 171 Sodium Level 146 H Potassium Level 3.4 L Chloride Level 116 H Carbon Dioxide Level 21 Anion Gap 12 Blood Urea Nitrogen 17 Creatinine 0.70 Glucose Level 196 Calcium Level 8.5 Test 02/09/17 00:07 02/09/17 01:08 02/09/17 03:13 02/09/17 05:07 Bedside Glucose 164 164 162 162 Test 02/09/17 05:50 02/09/17 07:03 02/09/17 08:02 White Blood Count 5.7 Red Blood Count 2.94 L Hemoglobin 9.1 L Hematocrit 26.1 L Mean Corpuscular Volume 88.8 Mean Corpuscular Hemoglobin 31.0 Mean Corpuscular Hemoglobin Concent 34.9 Red Cell Distribution Width 12.3 Platelet Count 97 L Mean Platelet Volume 13.9 H Neutrophils % 62.5 Lymphocytes % 32.0 Monocytes % 4.6 Eosinophils % 0.0 Basophils % 0.0 Nucleated Red Blood Cells % 0.0 Neutrophils # 3.5 Lymphocytes # 1.8 Monocytes # 0.3 Eosinophils # 0.0 Basophils # 0.0 Nucleated Red Blood Cells # 0.0 Prothrombin Time 15.9 H Prothrombin Time Ratio 1.2 INR International Normalized Ratio 1.26 Activated Partial Thromboplast Time 30.8 Sodium Level 139 Potassium Level 3.7 Chloride Level 108 Carbon Dioxide Level 21 Anion Gap 14 Blood Urea Nitrogen 16 Creatinine 0.66 Glucose Level 297 #H Calcium Level 8.5 Phosphorus Level 2.6 Magnesium Level 2.3 Total Bilirubin 0.5 Direct Bilirubin 0.00 Indirect Bilirubin 0.5 Aspartate Amino Transf (AST/SGOT) 33 Alanine Aminotransferase (ALT/SGPT) 44 Alkaline Phosphatase 26 L Total Protein 5.6 L Albumin 3.1 L Globulin 2.50 Albumin/Globulin Ratio 1.24 Lipase 2128 H Bedside Glucose 159 149 Medications Medications Current Medications Ondansetron HCl (Zofran Inj) 4 mg Q6H PRN IV NAUSEA AND/OR VOMITING; Start at 05:30 Acetaminophen (Tylenol Tab) 650 mg Q6H PRN PO PAIN LEVEL 1-3 OR FEVER; Start at 05:30 Acetaminophen (Tylenol Supp) 650 mg Q4H PRN [place] PAIN LEVEL 1-3 OR FEVER Last administered on 02/07/17 02:17; Admin Dose 650 MG; Start 02/06/17 at 05:30 Pantoprazole (Protonix Iv) 40 mg DAILY@06 IV Last administered on 02/09/17 05: 38; Admin Dose 40 MG; Start 02/06/17 at 06:00 Enoxaparin Sodium (Lovenox) 40 mg DAILY SC Last administered on 02/08/17 09:45 ; Admin Dose 40 MG; Start 02/06/17 at 09:00 Lorazepam (Ativan) 2 mg Q2H PRN IV AGITATION/ANXIETY Last administered on 07:50; Admin Dose 2 MG; Start 02/06/17 at 15:00 Levothyroxine Sodium (Synthroid Iv) 100 mcg DAILY@06 IV Last administered on 05:38; Admin Dose 100 MCG; Start 02/07/17 at 06:00 Diagnostic Test (Pha) (Accu-Chek) 1 ea Q1H XX Last administered on 02/09/17 08 :06; Admin Dose 1 EA; Start 02/06/17 at 19:00 Dextrose (D50w Syringe) 25 ml Q15M PRN IV Till BS 80 mg/dL or above x2; Start 02/06/17 at 19:00 Dextrose (D50w Syringe) 50 ml Q15M PRN IV Till BS 80 mg/dL or above x2; Start 02/06/17 at 19:00 Quetiapine Fumarate (Seroquel) 25 mg BID PO Last administered on 02/08/17 09: 40; Admin Dose 25 MG; Start 02/07/17 at 21:00 Desmopressin Acetate 2 mcg 2 mcg BID SC Last administered on 02/08/17 21:10; Admin Dose 2 MCG; Start 02/07/17 at 21:00 Norepinephrine 16 mg/Dextrose 500 ml @ 1.87 mls/hr TITRATE IV ; Start 02/07/17 at 15:00 Dextrose (D5W) 1,000 ml @ 125 mls/hr Q8H IV Last administered on 02/09/17 04: 23; Admin Dose 125 MLS/HR; Start 02/08/17 at 00:00 Hydrocortisone (Solu-Cortef) 50 mg Q8 IV Last administered on 02/09/17 05:38; Admin Dose 50 MG; Start 02/08/17 at 14:00 Potassium Chloride (Potassium Chloride Pwd/Soln) 40 meq ONCE NGT Last administered on 02/08/17 23:13; Admin Dose 40 MEQ; Start 02/08/17 at 23:30; Stop 02/09/17 at 23:29 SAWYER OLIVAS MD Feb 09, 2017 08:45
[2017-02-09] MEDS: DESMOPRESSIN 4 MCG INJ SC SCH (09:01)
[2017-02-09] MEDS: ENOXAPARIN 40 MG/0.4 ML SYG SC SCH (09:03)
--- NOTE | 2017-02-09 09:55 | CONS ---
Date/Time of Note Date/Time of Note DATE: 02/09/17 TIME: 09:54 Assessment/Plan Assessment/Plan Chief Complaint/Hosp Course Acute delirium: being treated for meningitis. ?viral. Resolved Acute renal failure: resolved with hydration NSTEMI: The most reasonable explanation would be a viral myocarditis which would also explain the remainder of the pt's presentation. Trops downtrending. Normal EF. No further workup needed at this time. Septic shock: secondary to above. Improved Sinus tachycardia: secondary to above.Improving. Some abrupt fluctuations in HR but doubt atrial tachycardia, more likely vagal changes. HR normal now Panhypopituitarism: endocrine following -no cardiac meds indicated -will follow as needed Problems: Consultation Date/Type/Reason Admit Date/Time Feb 06, 2017 at 05:14 Initial Consult Date 02/06/17 Type of Consultation: Cardiology Referring Provider: MOOSE CASTILLO 24 HR Interval Summary Free Text/Dictation No o/n events. HR much better. Awake and alert today. Mom notes that she is back to baseline. Exam/Review of Systems Vital Signs Vitals Vital Signs Date Time Temp Pulse Resp B/P Pulse Ox O2 Delivery O2 Flow Rate FiO2 02/09/17 09:00 56 20 117/86 98 Room Air 02/09/17 08:00 98.0 02/08/17 18:00 2.0 Intake and Output 02/08/17 02/08/17 02/09/17 15:00 23:00 07:00 Intake Total 820 ml 2354 ml 1132 ml Output Total 265 ml 270 ml 220 ml Balance 555 ml 2084 ml 912 ml Exam Constitutional: alert, oriented Psych: no complaints Head: normocephalic Neck: No jvd Respiratory: clear to auscultation Cardiovascular: regular rate and rhythm, No edema Gastrointestinal: non-tender, soft Neurological: nl mental status Results Result Diagram: 02/09/17 0550 02/09/17 0550 Results 24 hrs Laboratory Tests Test 02/08/17 10:16 02/08/17 11:35 02/08/17 13:10 02/08/17 14:32 Bedside Glucose 179 154 151 153 Test 02/08/17 16:35 02/08/17 17:30 02/08/17 18:26 02/08/17 19:58 Bedside Glucose 145 156 193 Vancomycin Level Trough 14.8 Test 02/08/17 20:04 02/08/17 21:13 02/08/17 23:19 02/09/17 00:07 Sodium Level 146 H Potassium Level 3.4 L Chloride Level 116 H Carbon Dioxide Level 21 Anion Gap 12 Blood Urea Nitrogen 17 Creatinine 0.70 Glucose Level 196 Calcium Level 8.5 Bedside Glucose 189 171 164 Test 02/09/17 01:08 02/09/17 03:13 02/09/17 05:07 02/09/17 05:50 Bedside Glucose 164 162 162 White Blood Count 5.7 Red Blood Count 2.94 L Hemoglobin 9.1 L Hematocrit 26.1 L Mean Corpuscular Volume 88.8 Mean Corpuscular Hemoglobin 31.0 Mean Corpuscular Hemoglobin Concent 34.9 Red Cell Distribution Width 12.3 Platelet Count 97 L Mean Platelet Volume 13.9 H Neutrophils % 62.5 Lymphocytes % 32.0 Monocytes % 4.6 Eosinophils % 0.0 Basophils % 0.0 Nucleated Red Blood Cells % 0.0 Neutrophils # 3.5 Lymphocytes # 1.8 Monocytes # 0.3 Eosinophils # 0.0 Basophils # 0.0 Nucleated Red Blood Cells # 0.0 Prothrombin Time 15.9 H Prothrombin Time Ratio 1.2 INR International Normalized Ratio 1.26 Activated Partial Thromboplast Time 30.8 Sodium Level 139 Potassium Level 3.7 Chloride Level 108 Carbon Dioxide Level 21 Anion Gap 14 Blood Urea Nitrogen 16 Creatinine 0.66 Glucose Level 297 #H Calcium Level 8.5 Phosphorus Level 2.6 Magnesium Level 2.3 Total Bilirubin 0.5 Direct Bilirubin 0.00 Indirect Bilirubin 0.5 Aspartate Amino Transf (AST/SGOT) 33 Alanine Aminotransferase (ALT/SGPT) 44 Alkaline Phosphatase 26 L Total Protein 5.6 L Albumin 3.1 L Globulin 2.50 Albumin/Globulin Ratio 1.24 Lipase 2128 H Test 02/09/17 07:03 02/09/17 08:02 Bedside Glucose 159 149 Medications Medications Current Medications Ondansetron HCl (Zofran Inj) 4 mg Q6H PRN IV NAUSEA AND/OR VOMITING; Start at 05:30 Acetaminophen (Tylenol Tab) 650 mg Q6H PRN PO PAIN LEVEL 1-3 OR FEVER; Start at 05:30 Pantoprazole (Protonix Iv) 40 mg DAILY@06 IV Last administered on 02/09/17 05: 38; Admin Dose 40 MG; Start 02/06/17 at 06:00 Enoxaparin Sodium (Lovenox) 40 mg DAILY SC Last administered on 02/09/17 09:03 ; Admin Dose 40 MG; Start 02/06/17 at 09:00 Dextrose (D50w Syringe) 25 ml Q15M PRN IV Till BS 80 mg/dL or above x2; Start 02/06/17 at 19:00 Dextrose (D50w Syringe) 50 ml Q15M PRN IV Till BS 80 mg/dL or above x2; Start 02/06/17 at 19:00 Lorazepam (Ativan) 1 mg Q4H PRN IV AGITATION/ANXIETY; Start 02/09/17 at 11:00 Diagnostic Test (Pha) (Accu-Chek) 1 ea Q2H XX ; Start 02/09/17 at 10:00 Desmopressin Acetate (Ddavp) 0.1 mg BID PO ; Start 02/09/17 at 21:00 Levothyroxine Sodium (Synthroid) 150 mcg DAILY@06 PO ; Start 02/10/17 at 06:00 Hydrocortisone (Cortef) 20 mg AM PO ; Start 02/10/17 at 09:00 DANE STYLES Feb 09, 2017 09:55
[2017-02-09] MEDS ORDERED: ACCU-CHEK XX SCH (10:00)
[2017-02-09] MEDS ORDERED: LORAZEPAM 2 MG INJ IV PRN (11:00)
--- NOTE | 2017-02-09 15:03 | PN ---
DATE: 02/09/2017 SUBJECTIVE: The patient is alert, feels good, sitting up in a chair. Denies pain, discomfort. No fevers. WBC 5.7, no shift, no bands. BUN 16, creatinine 0.66. MICROBIOLOGY: All cultures negative. PHYSICAL EXAMINATION: GENERAL: Obese, well-developed young woman who is alert, in no distress. HEENT: Head atraumatic, normocephalic. Sclerae anicteric. Buccal mucosa pink. NECK: Supple. CHEST: Rise symmetrical. Breath sounds clear. HEART: S1, S2. ABDOMEN: Soft, bowel tones present. EXTREMITIES: Without cyanosis. ASSESSMENT: 1. Status post-acute encephalopathy secondary to viral meningitis. 2. Diabetes insipidus. 3. Mild pancreatitis with elevated lipase today to 21____ 4. Status post-acute kidney injury. 5. History of panhypopituitarism, endocrine follows. PLAN: The patient remains stable, overall improving. She is being followed by multiple consultants . She is off antibiotics. Continue present care. Dictated By: CHRISTOPHE COOLEY [employer] OPERATOR for [employer] Conf#: [id number] DID#: [id number]
[2017-02-09] MEDS: HYDROCORTISONE 5 MG TAB PO SCH (18:45)
--- NOTE | 2017-02-09 19:05 | CONS ---
Date/Time of Note Date/Time of Note DATE: 02/09/17 TIME: 19:00 Assessment/Plan Assessment/Plan Problems: (1) Panhypopituitarism Status: Chronic Comment: See below (2) Secondary hypocortisolism Status: Chronic Comment: Pt. seems fully recovered from her acute illness. Home dose of hydrocortisone labeled as 10 mg bid but will place pt. on 20 mg qam and 10 mg qpm as she still seems to be recovering from stress for now. Reeval tomorrow. (3) Secondary hypothyroidism Status: Chronic Comment: Resume home dose LT4 150 mcg daily po. D/c IV dosage (4) Primary central diabetes insipidus Status: Chronic Comment: Resume home dose desmopressin 0.1 mg po bid and monitor sodium. Ad ary H2O (5) Hyperglycemia Status: Acute Comment: Now off stress dose steroids and IV dextrose. Still will monitor glucose to make sure no occult DM. (6) Central hypogonadism Status: Chronic Comment: Advise pt. and mother that pubertal development still possible and to d/w pt.'s endo in the future. (7) Patient's noncompliance with other medical treatment and regimen Status: Chronic Comment: D/w pt. and mother possibility of occult depression vs. intentional self-harm. Consider anti-depressant and/or psych consult in future. Consultation Date/Type/Reason Admit Date/Time Feb 06, 2017 at 05:14 Initial Consult Date 02/06/17 Type of Consultation: Endocrinology Reason for Consultation Hypothyroidism Referring Provider: MOOSE CASTILLO 24 HR Interval Summary Constitutional: improved, no complaints Detailed Summary Respiratory: no complaints Cardiovascular: no complaints Gastrointestinal: no complaints Genitourinary: no complaints Musculoskeletal: no complaints Neurologic: no complaints Exam/Review of Systems Vital Signs Vitals VS - Last 72 Hours, by Label Date Time Temp Pulse Resp B/P Pulse Ox O2 Delivery O2 Flow Rate FiO2 02/09/17 17:00 98.7 56 18 129/72 96 Room Air 02/09/17 16:00 47 02/09/17 15:00 41 16 117/77 97 Room Air 02/09/17 14:00 53 16 100/62 97 Room Air 02/09/17 13:00 52 20 104/56 Room Air 02/09/17 12:00 54 20 87/63 95 Room Air 02/09/17 12:00 53 02/09/17 12:00 98.0 02/09/17 11:00 49 18 92/58 94 Room Air 02/09/17 10:00 60 26 107/71 98 Room Air 02/09/17 09:00 56 20 117/86 98 Room Air 02/09/17 08:00 98.0 51 24 120/80 96 Room Air 02/09/17 08:00 53 02/09/17 07:00 54 20 103/71 97 Room Air 02/09/17 06:00 61 19 112/85 96 Room Air 02/09/17 05:00 56 18 100/60 96 Room Air 02/09/17 04:00 97.8 56 14 119/71 95 Room Air 02/09/17 04:00 58 02/09/17 03:00 53 21 110/70 96 Room Air 02/09/17 02:00 60 22 111/75 95 Room Air 02/09/17 01:00 55 21 89/50 96 Room Air 02/09/17 00:00 58 02/09/17 00:00 98.2 57 20 93/45 96 Room Air 02/08/17 23:00 63 21 97/53 96 Room Air 02/08/17 22:00 60 21 92/55 96 Room Air 02/08/17 21:00 70 23 95/57 95 Room Air 02/08/17 20:00 98.1 84 16 95/63 97 Room Air 02/08/17 20:00 83 02/08/17 19:00 98 24 98 02/08/17 18:30 71 28 107/66 96 Room Air 02/08/17 18:00 85 14 100/56 96 Nasal Cannula 02/08/17 18:00 Nasal Cannula 2.0 02/08/17 17:30 85 14 101/56 96 Nasal Cannula 02/08/17 17:00 87 27 87/78 97 Nasal Cannula 02/08/17 16:30 69 20 102/65 95 Nasal Cannula 02/08/17 16:00 97.4 66 21 90/68 96 Nasal Cannula 02/08/17 16:00 65 02/08/17 15:30 71 20 103/72 95 Nasal Cannula 02/08/17 15:00 84 32 100/63 97 Nasal Cannula 02/08/17 14:30 90 25 101/59 96 Nasal Cannula 02/08/17 14:00 78 20 109/66 96 Nasal Cannula 02/08/17 13:30 93 24 89/59 96 Nasal Cannula 02/08/17 13:00 78 20 110/64 96 Nasal Cannula 02/08/17 12:30 97.8 83 18 108/66 95 Nasal Cannula 02/08/17 12:00 Nasal Cannula 2.0 02/08/17 12:00 88 02/08/17 12:00 86 20 111/60 95 Nasal Cannula 02/08/17 11:30 97 22 103/64 95 Nasal Cannula 02/08/17 11:15 95 20 100/65 95 02/08/17 11:00 95 22 112/65 95 17 10:30 80 22 106/59 96 Nasal Cannula 02/08/17 10:00 80 21 100/69 96 02/08/17 10:00 80 21 100/69 96 Nasal Cannula 02/08/17 09:30 104 26 102/59 97 Nasal Cannula 02/08/17 09:30 104 26 102/59 97 Nasal Cannula 02/08/17 09:15 99 20 100/60 97 Nasal Cannula 02/08/17 09:00 104 26 100/59 97 Nasal Cannula 02/08/17 08:45 76 27 96/66 96 02/08/17 08:30 76 27 92/66 96 Nasal Cannula 02/08/17 08:15 98.2 76 25 95/66 96 Nasal Cannula 02/08/17 08:00 Nasal Cannula 2.0 02/08/17 08:00 101 27 110/68 97 Nasal Cannula 02/08/17 08:00 92 02/08/17 07:45 101 27 103/68 97 Nasal Cannula 02/08/17 07:30 101 27 101/68 97 Nasal Cannula 02/08/17 07:15 81 24 100/57 95 17 04:00 100 02/08/17 02:00 98.7 112 37 113/60 97 Nasal Cannula 02/08/17 01:00 114 33 93 02/08/17 00:00 104 34 97 17 00:00 102 02/07/17 21:00 112 20 91 02/07/17 20:00 105 02/07/17 20:00 98.4 106 23 108/62 97 Nasal Cannula 02/07/17 19:00 108 19 94 02/07/17 18:00 97.8 100/50 98 02/07/17 17:00 0 96/47 94 02/07/17 16:00 119 02/07/17 16:00 126 02/07/17 16:00 111 28 102/58 90 02/07/17 15:00 116 30 122/89 97 02/07/17 14:24 97.7 114 28 109/68 96 02/07/17 12:00 117 100 02/07/17 12:00 126 02/07/17 11:00 115 24 109/61 02/07/17 11:00 115 24 109/61 02/07/17 10:45 121 19 96 02/07/17 10:15 121 26 82/65 02/07/17 09:30 116 21 117/89 97 02/07/17 09:00 118 21 02/07/17 08:00 113 02/07/17 08:00 98.7 112 26 102/55 98 02/07/17 07:30 119 27 99 02/07/17 07:00 120 29 99 02/07/17 06:00 114 25 112/59 02/07/17 05:00 116 19 113/55 97 02/07/17 04:00 115 02/07/17 04:00 98.6 02/07/17 04:00 119 19 02/07/17 03:30 124 20 117/77 99 02/07/17 03:00 120 15 97 02/07/17 02:30 118 23 97 02/07/17 02:00 124 19 93/82 97 02/07/17 01:30 123 21 96 02/07/17 01:30 123 21 96 02/07/17 01:15 121 35 89/52 95 02/07/17 01:00 123 26 97 02/07/17 01:00 123 26 97 02/07/17 00:45 124 30 98 02/07/17 00:30 128 23 88/46 96 02/07/17 00:30 128 23 88/46 96 02/07/17 00:15 129 31 02/07/17 00:00 125 23 02/07/17 00:00 125 02/07/17 00:00 97.9 02/07/17 00:00 125 23 02/06/17 23:30 122 24 97 02/06/17 23:00 127 25 112/57 96 02/06/17 22:30 124 26 96 02/06/17 22:00 129 29 100/72 96 02/06/17 21:30 130 29 125/111 98 02/06/17 21:00 127 24 97/49 96 02/06/17 20:30 135 27 103/74 97 02/06/17 20:00 98.7 02/06/17 20:00 131 20 123/69 02/06/17 20:00 130 Vital Signs Date Time Temp Pulse Resp B/P Pulse Ox O2 Delivery O2 Flow Rate FiO2 02/09/17 17:00 98.7 56 18 129/72 96 Room Air 02/08/17 18:00 2.0 Intake and Output 02/08/17 02/08/17 02/09/17 15:00 23:00 07:00 Intake Total 820 ml 2354 ml 1132 ml Output Total 265 ml 270 ml 260 ml Balance 555 ml 2084 ml 872 ml Exam Constitutional: alert, oriented, well developed Psych: nl mood/affect, no complaints Respiratory: clear to auscultation, normal air movement Cardiovascular: nl pulses, regular rate and rhythm, No edema, No murmurs/extra sounds, No rub Gastrointestinal: bowel sounds, nl liver, spleen, non-tender, soft, No mass, No rebound or guarding Musculoskeletal: nl extremities to inspection Extremities: normal pulses, No clubbing, No cyanosis, No edema Neurological: SIGNAL INTELLIGENCE/ELECTRONIC WARFARE II-XII intact, nl mental status, nl speech, nl strength Additional Comments Bedside Glucose - 72 Hours Test 02/06/17 21:38 02/06/17 23:16 02/07/17 00:16 02/07/17 01:38 Bedside Glucose 218mg/dL (70-220) 211mg/dL (70-220) 171mg/dL (70-220) 189mg/dL (70-220) Test 02/07/17 02:10 02/07/17 03:09 02/07/17 04:08 02/07/17 05:54 Bedside Glucose 162mg/dL (70-220) 149mg/dL (70-220) 156mg/dL (70-220) 162mg/dL (70-220) Test 02/07/17 06:54 02/07/17 09:11 02/07/17 10:32 02/07/17 11:31 Bedside Glucose 154mg/dL (70-220) 186mg/dL (70-220) 182mg/dL (70-220) 159mg/dL (70-220) Test 02/07/17 14:05 02/07/17 16:26 02/07/17 18:45 02/07/17 22:24 Bedside Glucose 162mg/dL (70-220) 161mg/dL (70-220) 133mg/dL (70-220) 151mg/dL (70-220) Test 02/08/17 01:05 02/08/17 03:37 02/08/17 05:02 02/08/17 06:16 Bedside Glucose 131mg/dL (70-220) 188mg/dL (70-220) 188mg/dL (70-220) 148mg/dL (70-220) Test 02/08/17 07:28 02/08/17 08:07 02/08/17 09:08 02/08/17 10:16 Bedside Glucose 160mg/dL (70-220) 163mg/dL (70-220) 170mg/dL (70-220) 179mg/dL (70-220) Test 02/08/17 11:35 02/08/17 13:10 02/08/17 14:32 02/08/17 16:35 Bedside Glucose 154mg/dL (70-220) 151mg/dL (70-220) 153mg/dL (70-220) 145mg/dL (70-220) Test 02/08/17 18:26 02/08/17 19:58 02/08/17 21:13 02/08/17 23:19 Bedside Glucose 156mg/dL (70-220) 193mg/dL (70-220) 189mg/dL (70-220) 171mg/dL (70-220) Test 02/09/17 00:07 02/09/17 01:08 02/09/17 03:13 02/09/17 05:07 Bedside Glucose 164mg/dL (70-220) 164mg/dL (70-220) 162mg/dL (70-220) 162mg/dL (70-220) Test 02/09/17 07:03 02/09/17 08:02 Bedside Glucose 159mg/dL (70-220) 149mg/dL (70-220) Results Result Diagram: 02/09/17 0550 02/09/17 0550 Results 24 hrs Laboratory Tests Test 02/08/17 19:58 02/08/17 20:04 02/08/17 21:13 02/08/17 23:19 Bedside Glucose 193 189 171 Sodium Level 146 H Potassium Level 3.4 L Chloride Level 116 H Carbon Dioxide Level 21 Anion Gap 12 Blood Urea Nitrogen 17 Creatinine 0.70 Glucose Level 196 Calcium Level 8.5 Test 02/09/17 00:07 02/09/17 01:08 02/09/17 03:13 02/09/17 05:07 Bedside Glucose 164 164 162 162 Test 02/09/17 05:50 02/09/17 07:03 02/09/17 08:02 White Blood Count 5.7 Red Blood Count 2.94 L Hemoglobin 9.1 L Hematocrit 26.1 L Mean Corpuscular Volume 88.8 Mean Corpuscular Hemoglobin 31.0 Mean Corpuscular Hemoglobin Concent 34.9 Red Cell Distribution Width 12.3 Platelet Count 97 L Mean Platelet Volume 13.9 H Neutrophils % 62.5 Lymphocytes % 32.0 Monocytes % 4.6 Eosinophils % 0.0 Basophils % 0.0 Nucleated Red Blood Cells % 0.0 Neutrophils # 3.5 Lymphocytes # 1.8 Monocytes # 0.3 Eosinophils # 0.0 Basophils # 0.0 Nucleated Red Blood Cells # 0.0 Prothrombin Time 15.9 H Prothrombin Time Ratio 1.2 INR International Normalized Ratio 1.26 Activated Partial Thromboplast Time 30.8 Sodium Level 139 Potassium Level 3.7 Chloride Level 108 Carbon Dioxide Level 21 Anion Gap 14 Blood Urea Nitrogen 16 Creatinine 0.66 Glucose Level 297 #H Calcium Level 8.5 Phosphorus Level 2.6 Magnesium Level 2.3 Total Bilirubin 0.5 Direct Bilirubin 0.00 Indirect Bilirubin 0.5 Aspartate Amino Transf (AST/SGOT) 33 Alanine Aminotransferase (ALT/SGPT) 44 Alkaline Phosphatase 26 L Total Protein 5.6 L Albumin 3.1 L Globulin 2.50 Albumin/Globulin Ratio 1.24 Lipase 2128 H Bedside Glucose 159 149 Medications Medications Current Medications Ondansetron HCl (Zofran Inj) 4 mg Q6H PRN IV NAUSEA AND/OR VOMITING; Start at 05:30 Acetaminophen (Tylenol Tab) 650 mg Q6H PRN PO PAIN LEVEL 1-3 OR FEVER; Start at 05:30 Pantoprazole (Protonix Iv) 40 mg DAILY@06 IV Last administered on 02/09/17 05: 38; Admin Dose 40 MG; Start 02/06/17 at 06:00 Enoxaparin Sodium (Lovenox) 40 mg DAILY SC Last administered on 02/09/17 09:03 ; Admin Dose 40 MG; Start 02/06/17 at 09:00 Lorazepam (Ativan) 1 mg Q4H PRN IV AGITATION/ANXIETY; Start 02/09/17 at 11:00 Desmopressin Acetate (Ddavp) 0.1 mg BID PO ; Start 02/09/17 at 21:00 Levothyroxine Sodium (Synthroid) 150 mcg DAILY@06 PO ; Start 02/10/17 at 06:00 Hydrocortisone (Cortef) 20 mg AM PO ; Start 02/10/17 at 09:00 HIREN FARMER MD Feb 09, 2017 19:05
[2017-02-09] MEDS: DESMOPRESSIN 0.1 MG TAB PO SCH (20:16)
[2017-02-10 04:50] LABS: ADD SCAN DIFF NO
[2017-02-10 04:53] LABS: BASOPHILS % 0.2 % (0.0-2.0); EOSINOPHILS % 0.2 % (0.0-7.0); HEMOGLOBIN 10.2 g/dl (12.0-16.0); LYMPHOCYTES # 2.5 10^3/ul (0.8-2.9); LYMPHOCYTES % 44.1 % (18.0-55.0); MEAN CORPUSCULAR HEMOGLOBIN 31.1 pg (29.0-33.0); MEAN CORPUSCULAR HGB CONC 36.4 g/dl (32.0-37.0); MEAN CORPUSCULAR VOLUME 85.4 fl (72.0-104.0); MEAN PLATELET VOLUME 13.6 fl (7.4-10.4); MONOCYTE # 0.3 10^3/ul (0.3-0.9); MONOCYTES % 5.3 % (0.0-13.0); NEUTROPHIL # 2.8 10^3/ul (1.6-7.5); NEUTROPHILS % 49.7 % (30.0-74.0); PLATELET COUNT 124 10^3/UL (140-415); RED BLOOD COUNT 3.28 10^6/ul (4.20-5.40); RED CELL DISTRIBUTION WIDTH 11.7 % (11.5-14.5); WHITE BLOOD COUNT 5.7 10^3/ul (4.8-10.8)
[2017-02-10 05:31] LABS: CALCIUM 8.9 mg/dl (8.4-10.2); CREATININE 0.66 mg/dl (0.44-1.00); POTASSIUM 3.9 mmol/L (3.5-5.1)
[2017-02-10] MEDS: LEVOTHYROXINE 150 MCG TAB PO SCH (06:45)
[2017-02-10] MEDS: PANTOPRAZOLE 40 MG INJ IV SCH (06:45)
[2017-02-10 07:31] VITALS: BP 108/66; RESP 18
[2017-02-10] MEDS: ACCU-CHEK XX SCH ×4 (07:54→21:00)
[2017-02-10] MEDS: DESMOPRESSIN 0.1 MG TAB PO SCH ×2 (08:49→21:39)
[2017-02-10] MEDS: ENOXAPARIN 40 MG/0.4 ML SYG SC SCH (08:59)
[2017-02-10] MEDS ORDERED: HYDROCORTISONE 20 MG TAB PO SCH (09:00)
--- NOTE | 2017-02-10 10:37 | PN ---
Date/Time of Note Date/Time of Note DATE: 02/10/17 TIME: 10:31 Assessment/Plan VTE Prophylaxis VTE Prophylaxis Intervention: LMWH Lines/Catheters IV [facility] Saline Lock Urinary Cath still in place: Yes Reason Cath still needed: other (indicate) (d/c coyne cathter today ) Assessment/Plan Assessment/Plan 1. Acute encephalopathy 2/2 possible aseptic meningitis 2. Sepsis, likely secondary to meningitis. 3. Panhypopituitarism- Endocrine following 4. DAYSI due to prerenal azotemia 5. acute transaminitis 6. Elevated troponin due to demand, s/p cardiolgoy consult 7. Hypokalemia 8. Lactic acidosis, resolved. 9. acute pancreatitis 10. Acute hypernatremia - improved to normal Plan: seroquel stopped ambulate pt, PT evaluation and treatment All antibiotics has been stopped , ID following ID following on multiple iV abx, Cx result pending and other labs sent by ID also pending Lovenox for DVT prophylaxis Protonix for GI prophylaxis Subjective 24 Hr Interval Summary Free Text/Dictation transferred to [facility] floor, Bp stable,Blood sugar controlled Exam/Review of Systems Vital Signs Vitals Vital Signs Date Time Temp Pulse Resp B/P Pulse Ox O2 Delivery O2 Flow Rate FiO2 02/10/17 07:31 98.4 81 18 108/66 97 02/09/17 17:00 Room Air 02/08/17 18:00 2.0 Intake and Output 02/09/17 02/09/17 02/10/17 15:00 23:00 07:00 Intake Total 370 ml 120 ml 840 ml Output Total 210 ml 300 ml Balance 160 ml 120 ml 540 ml Exam GENERAL: alert, awake CHEST: Decreased breath sounds at the bases. HEART: Without murmur or gallop. ABDOMEN: Soft, nontender, without organosplenomegaly or masses. EXTREMITIES: Without cyanosis, clubbing, or edema. RECTAL AND GENITAL: Deferred. NEUROLOGIC: The patient is confused, moves all extremities. Results Result Diagram: 02/10/17 0431 02/10/17 0431 Results 24 hrs Laboratory Tests Test 02/09/17 20:15 02/10/17 04:31 02/10/17 07:39 Bedside Glucose 143 128 White Blood Count 5.7 Red Blood Count 3.28 L Hemoglobin 10.2 L Hematocrit 28.0 L Mean Corpuscular Volume 85.4 Mean Corpuscular Hemoglobin 31.1 Mean Corpuscular Hemoglobin Concent 36.4 Red Cell Distribution Width 11.7 Platelet Count 124 #L Mean Platelet Volume 13.6 H Neutrophils % 49.7 Lymphocytes % 44.1 Monocytes % 5.3 Eosinophils % 0.2 Basophils % 0.2 Nucleated Red Blood Cells % 0.0 Neutrophils # 2.8 Lymphocytes # 2.5 Monocytes # 0.3 Eosinophils # 0.0 Basophils # 0.0 Nucleated Red Blood Cells # 0.0 Sodium Level 142 Potassium Level 3.9 Chloride Level 111 H Carbon Dioxide Level 22 Anion Gap 13 Blood Urea Nitrogen 18 Creatinine 0.66 Glucose Level 148 # Calcium Level 8.9 Magnesium Level 2.5 Medications Medications Current Medications Ondansetron HCl (Zofran Inj) 4 mg Q6H PRN IV NAUSEA AND/OR VOMITING; Start at 05:30 Acetaminophen (Tylenol Tab) 650 mg Q6H PRN PO PAIN LEVEL 1-3 OR FEVER; Start at 05:30 Pantoprazole (Protonix Iv) 40 mg DAILY@06 IV Last administered on 02/10/17 06: 45; Admin Dose 40 MG; Start 02/06/17 at 06:00 Enoxaparin Sodium (Lovenox) 40 mg DAILY SC Last administered on 02/10/17 08:59 ; Admin Dose 40 MG; Start 02/06/17 at 09:00 Lorazepam (Ativan) 1 mg Q4H PRN IV AGITATION/ANXIETY; Start 02/09/17 at 11:00 Desmopressin Acetate (Ddavp) 0.1 mg BID PO Last administered on 02/10/17 08:49 ; Admin Dose 0.1 MG; Start 02/09/17 at 21:00 Levothyroxine Sodium (Synthroid) 150 mcg DAILY@06 PO Last administered on 06:45; Admin Dose 150 MCG; Start 02/10/17 at 06:00 Hydrocortisone (Cortef) 20 mg AM PO Last administered on 02/10/17 09:31; Admin Dose 20 MG; Start 02/10/17 at 09:00 SAWYER OLIVAS MD Feb 10, 2017 10:37 SAWYER OLIVAS MD Feb 10, 2017 10:37
[2017-02-10 13:31] LABS: VDRL, CSF NON-REACTIVE (NON-REACTIVE)
[2017-02-10 13:57] VITALS: BP 119/72; PULSE 52; RESP 18
[2017-02-10 17:02] LABS: HSV 1 IGG ANTIBODY 42.8 index; HSV 2 IGG ANTIBODY 1.54 index
[2017-02-10] MEDS: HYDROCORTISONE 5 MG TAB PO SCH (17:43)
[2017-02-10 20:05] VITALS: PULSE 53
--- NOTE | 2017-02-10 20:51 | CONS ---
Date/Time of Note Date/Time of Note DATE: 02/10/17 TIME: 20:45 Assessment/Plan Assessment/Plan Problems: (1) Panhypopituitarism Status: Chronic Comment: Pt. normalized from all panhypopit. parameters. No further stress dosing needed of hydrocortisone. Will decrease to home dose of 10 mg bid. Cont. desmopressin and LT4 at home doses. Consider sex steroid replacement in future. (2) Hyperglycemia Status: Acute Comment: Still mildly hyperglycemic but weaning hydrocortisone should help normalize glucose. Will monitor. Consultation Date/Type/Reason Admit Date/Time Feb 06, 2017 at 05:14 Initial Consult Date 02/06/17 Type of Consultation: Endocrinology Reason for Consultation Hypothyroidism Referring Provider: MOOSE CASTILLO 24 HR Interval Summary Constitutional: improved (feels back to normal), no complaints Detailed Summary Respiratory: no complaints Cardiovascular: no complaints Gastrointestinal: no complaints Genitourinary: no complaints Musculoskeletal: no complaints Neurologic: no complaints Exam/Review of Systems Vital Signs Vitals VS - Last 72 Hours, by Label Date Time Temp Pulse Resp B/P Pulse Ox O2 Delivery O2 Flow Rate FiO2 02/10/17 13:57 98.2 52 18 119/72 97 Room Air 52 02/10/17 07:31 98.4 81 18 108/66 97 02/09/17 19:08 98.2 95 16 120/78 98 02/09/17 17:00 98.7 56 18 129/72 96 Room Air 02/09/17 16:00 47 02/09/17 15:00 41 16 117/77 97 Room Air 02/09/17 14:00 53 16 100/62 97 Room Air 02/09/17 13:00 52 20 104/56 Room Air 02/09/17 12:00 54 20 87/63 95 Room Air 02/09/17 12:00 53 02/09/17 12:00 98.0 02/09/17 11:00 49 18 92/58 94 Room Air 02/09/17 10:00 60 26 107/71 98 Room Air 02/09/17 09:00 56 20 117/86 98 Room Air 02/09/17 08:00 98.0 51 24 120/80 96 Room Air 02/09/17 08:00 53 02/09/17 07:00 54 20 103/71 97 Room Air 02/09/17 06:00 61 19 112/85 96 Room Air 02/09/17 05:00 56 18 100/60 96 Room Air 02/09/17 04:00 97.8 56 14 119/71 95 Room Air 02/09/17 04:00 58 02/09/17 03:00 53 21 110/70 96 Room Air 02/09/17 02:00 60 22 111/75 95 Room Air 02/09/17 01:00 55 21 89/50 96 Room Air 02/09/17 00:00 58 02/09/17 00:00 98.2 57 20 93/45 96 Room Air 02/08/17 23:00 63 21 97/53 96 Room Air 02/08/17 22:00 60 21 92/55 96 Room Air 02/08/17 21:00 70 23 95/57 95 Room Air 02/08/17 20:00 98.1 84 16 95/63 97 Room Air 02/08/17 20:00 83 02/08/17 19:00 98 24 98 02/08/17 18:30 71 28 107/66 96 Room Air 02/08/17 18:00 85 14 100/56 96 Nasal Cannula 02/08/17 18:00 Nasal Cannula 2.0 02/08/17 17:30 85 14 101/56 96 Nasal Cannula 02/08/17 17:00 87 27 87/78 97 Nasal Cannula 02/08/17 16:30 69 20 102/65 95 Nasal Cannula 02/08/17 16:00 97.4 66 21 90/68 96 Nasal Cannula 02/08/17 16:00 65 02/08/17 15:30 71 20 103/72 95 Nasal Cannula 02/08/17 15:00 84 32 100/63 97 Nasal Cannula 02/08/17 14:30 90 25 101/59 96 Nasal Cannula 02/08/17 14:00 78 20 109/66 96 Nasal Cannula 02/08/17 13:30 93 24 89/59 96 Nasal Cannula 02/08/17 13:00 78 20 110/64 96 Nasal Cannula 02/08/17 12:30 97.8 83 18 108/66 95 Nasal Cannula 02/08/17 12:00 Nasal Cannula 2.0 02/08/17 12:00 88 02/08/17 12:00 86 20 111/60 95 Nasal Cannula 02/08/17 11:30 97 22 103/64 95 Nasal Cannula 02/08/17 11:15 95 20 100/65 95 02/08/17 11:00 95 22 112/65 95 02/08/17 10:30 80 22 106/59 96 Nasal Cannula 02/08/17 10:00 80 21 100/69 96 02/08/17 10:00 80 21 100/69 96 Nasal Cannula 02/08/17 09:30 104 26 102/59 97 Nasal Cannula 02/08/17 09:30 104 26 102/59 97 Nasal Cannula 02/08/17 09:15 99 20 100/60 97 Nasal Cannula 02/08/17 09:00 104 26 100/59 97 Nasal Cannula 02/08/17 08:45 76 27 96/66 96 02/08/17 08:30 76 27 92/66 96 Nasal Cannula 02/08/17 08:15 98.2 76 25 95/66 96 Nasal Cannula 02/08/17 08:00 Nasal Cannula 2.0 02/08/17 08:00 101 27 110/68 97 Nasal Cannula 02/08/17 08:00 92 02/08/17 07:45 101 27 103/68 97 Nasal Cannula 02/08/17 07:30 101 27 101/68 97 Nasal Cannula 02/08/17 07:15 81 24 100/57 95 02/08/17 04:00 100 02/08/17 02:00 98.7 112 37 113/60 97 Nasal Cannula 02/08/17 01:00 114 33 93 02/08/17 00:00 104 34 97 02/08/17 00:00 102 02/07/17 21:00 112 20 91 Vital Signs Date Time Temp Pulse Resp B/P Pulse Ox O2 Delivery O2 Flow Rate FiO2 02/10/17 13:57 98.2 52 18 119/72 97 Room Air 52 02/08/17 18:00 2.0 Intake and Output 02/09/17 02/09/17 02/10/17 15:00 23:00 07:00 Intake Total 370 ml 120 ml 840 ml Output Total 210 ml 300 ml Balance 160 ml 120 ml 540 ml Exam Constitutional: alert, oriented, well developed Respiratory: clear to auscultation, normal air movement Cardiovascular: nl pulses, regular rate and rhythm, No edema, No murmurs/extra sounds, No rub Gastrointestinal: bowel sounds, nl liver, spleen, non-tender, soft, No mass, No rebound or guarding Musculoskeletal: nl extremities to inspection Extremities: normal pulses, No clubbing, No cyanosis, No edema 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, nl mental status, nl speech, nl strength Additional Comments Bedside Glucose - 72 Hours Test 02/07/17 22:24 02/08/17 01:05 02/08/17 03:37 02/08/17 05:02 Bedside Glucose 151mg/dL (70-220) 131mg/dL (70-220) 188mg/dL (70-220) 188mg/dL (70-220) Test 02/08/17 06:16 02/08/17 07:28 02/08/17 08:07 02/08/17 09:08 Bedside Glucose 148mg/dL (70-220) 160mg/dL (70-220) 163mg/dL (70-220) 170mg/dL (70-220) Test 02/08/17 10:16 02/08/17 11:35 02/08/17 13:10 02/08/17 14:32 Bedside Glucose 179mg/dL (70-220) 154mg/dL (70-220) 151mg/dL (70-220) 153mg/dL (70-220) Test 02/08/17 16:35 02/08/17 18:26 02/08/17 19:58 02/08/17 21:13 Bedside Glucose 145mg/dL (70-220) 156mg/dL (70-220) 193mg/dL (70-220) 189mg/dL (70-220) Test 02/08/17 23:19 02/09/17 00:07 02/09/17 01:08 02/09/17 03:13 Bedside Glucose 171mg/dL (70-220) 164mg/dL (70-220) 164mg/dL (70-220) 162mg/dL (70-220) Test 02/09/17 05:07 02/09/17 07:03 02/09/17 08:02 02/09/17 20:15 Bedside Glucose 162mg/dL (70-220) 159mg/dL (70-220) 149mg/dL (70-220) 143mg/dL (70-220) Test 02/10/17 07:39 02/10/17 11:27 02/10/17 17:42 Bedside Glucose 128mg/dL (70-220) 143mg/dL (70-220) 124mg/dL (70-220) Results Result Diagram: 02/10/17 0431 02/10/17 0431 Results 24 hrs Laboratory Tests Test 02/10/17 04:31 02/10/17 07:39 02/10/17 11:27 02/10/17 17:42 White Blood Count 5.7 Red Blood Count 3.28 L Hemoglobin 10.2 L Hematocrit 28.0 L Mean Corpuscular Volume 85.4 Mean Corpuscular Hemoglobin 31.1 Mean Corpuscular Hemoglobin Concent 36.4 Red Cell Distribution Width 11.7 Platelet Count 124 #L Mean Platelet Volume 13.6 H Neutrophils % 49.7 Lymphocytes % 44.1 Monocytes % 5.3 Eosinophils % 0.2 Basophils % 0.2 Nucleated Red Blood Cells % 0.0 Neutrophils # 2.8 Lymphocytes # 2.5 Monocytes # 0.3 Eosinophils # 0.0 Basophils # 0.0 Nucleated Red Blood Cells # 0.0 Sodium Level 142 Potassium Level 3.9 Chloride Level 111 H Carbon Dioxide Level 22 Anion Gap 13 Blood Urea Nitrogen 18 Creatinine 0.66 Glucose Level 148 # Calcium Level 8.9 Magnesium Level 2.5 Bedside Glucose 128 143 124 Medications Medications Current Medications Ondansetron HCl (Zofran Inj) 4 mg Q6H PRN IV NAUSEA AND/OR VOMITING; Start at 05:30 Acetaminophen (Tylenol Tab) 650 mg Q6H PRN PO PAIN LEVEL 1-3 OR FEVER; Start at 05:30 Enoxaparin Sodium (Lovenox) 40 mg DAILY SC Last administered on 02/10/17 08:59 ; Admin Dose 40 MG; Start 02/06/17 at 09:00 Lorazepam (Ativan) 1 mg Q4H PRN IV AGITATION/ANXIETY; Start 02/09/17 at 11:00 Desmopressin Acetate (Ddavp) 0.1 mg BID PO Last administered on 02/10/17 08:49 ; Admin Dose 0.1 MG; Start 02/09/17 at 21:00 Levothyroxine Sodium (Synthroid) 150 mcg DAILY@06 PO Last administered on 06:45; Admin Dose 150 MCG; Start 02/10/17 at 06:00 Pantoprazole (Protonix Tab) 40 mg DAILY@06 PO ; Start 02/11/17 at 06:00 Hydrocortisone (Cortef) 10 mg AM PO ; Start 02/11/17 at 09:00 HIREN FARMER MD Feb 10, 2017 20:51
[2017-02-11] MEDS: LEVOTHYROXINE 150 MCG TAB PO SCH (05:02)
[2017-02-11] MEDS: PANTOPRAZOLE (EC) 40 MG TAB PO SCH (05:02)
[2017-02-11 05:46] LABS: CALCIUM 8.7 mg/dl (8.4-10.2); CREATININE 0.69 mg/dl (0.44-1.00); POTASSIUM 3.4 mmol/L (3.5-5.1)
[2017-02-11 07:26] VITALS: BP 111/63; RESP 19
[2017-02-11] MEDS: ACCU-CHEK XX SCH ×2 (08:13→12:05)
[2017-02-11] MEDS: DESMOPRESSIN 0.1 MG TAB PO SCH ×2 (08:41→20:29)
[2017-02-11] MEDS: HYDROCORTISONE 5 MG TAB PO SCH ×2 (08:41→18:01)
[2017-02-11] MEDS: ENOXAPARIN 40 MG/0.4 ML SYG SC SCH (08:50)
[2017-02-11] MEDS ORDERED: POTASSIUM CHLORIDE (SR) 20 MEQ TAB PO STA (12:26)
--- NOTE | 2017-02-11 12:27 | PN ---
Date/Time of Note Date/Time of Note DATE: 02/11/17 TIME: 12:25 Assessment/Plan VTE Prophylaxis VTE Prophylaxis Intervention: SCD's Lines/Catheters IV [facility] Type [facility]from [facility] Saline Lock Urinary Cath still in place: No Assessment/Plan Assessment/Plan 1. Acute encephalopathy 2/2 possible aseptic meningitis 2. Sepsis, likely secondary to meningitis. 3. Panhypopituitarism- Endocrine following 4. DAYSI due to prerenal azotemia 5. acute transaminitis 6. Elevated troponin due to demand, s/p cardiolgoy consult 7. Hypokalemia 8. Lactic acidosis, resolved. 9. acute pancreatitis 10. Acute hypernatremia - improved to normal Plan: seroquel stopped KCl 40mEQ PO x 1 dose today ambulate pt, PT evaluation and treatment S/p Abx, now stopped BS controlled Protonix for GI prophylaxis Subjective 24 Hr Interval Summary Free Text/Dictation doing better, K low, BP stable Exam/Review of Systems Vital Signs Vitals Vital Signs Date Time Temp Pulse Resp B/P Pulse Ox O2 Delivery O2 Flow Rate FiO2 02/11/17 07:26 98.0 55 19 111/63 98 02/10/17 13:57 Room Air 02/08/17 18:00 2.0 Intake and Output 02/10/17 02/10/17 02/11/17 15:00 23:00 07:00 Intake Total 1500 ml 1600 ml Output Total 1200 ml 1420 ml Balance 300 ml 180 ml Exam GENERAL: alert, awake CHEST: Decreased breath sounds at the bases. HEART: Without murmur or gallop. ABDOMEN: Soft, nontender, without organosplenomegaly or masses. EXTREMITIES: Without cyanosis, clubbing, or edema. RECTAL AND GENITAL: Deferred. NEUROLOGIC: normal Results Result Diagram: 02/10/17 0431 02/11/17 0453 Results 24 hrs Laboratory Tests Test 02/10/17 17:42 02/10/17 21:37 02/11/17 04:53 02/11/17 08:11 Bedside Glucose 124 109 85 Sodium Level 142 Potassium Level 3.4 L Chloride Level 112 H Carbon Dioxide Level 22 Anion Gap 11 Blood Urea Nitrogen 16 Creatinine 0.69 Glucose Level 93 # Calcium Level 8.7 Magnesium Level 2.4 Test 02/11/17 12:19 Bedside Glucose 115 Medications Medications Current Medications Ondansetron HCl (Zofran Inj) 4 mg Q6H PRN IV NAUSEA AND/OR VOMITING; Start at 05:30 Acetaminophen (Tylenol Tab) 650 mg Q6H PRN PO PAIN LEVEL 1-3 OR FEVER; Start at 05:30 Enoxaparin Sodium (Lovenox) 40 mg DAILY SC Last administered on 02/11/17 08:50 ; Admin Dose 40 MG; Start 02/06/17 at 09:00 Lorazepam (Ativan) 1 mg Q4H PRN IV AGITATION/ANXIETY; Start 02/09/17 at 11:00 Desmopressin Acetate (Ddavp) 0.1 mg BID PO Last administered on 02/11/17 08:41 ; Admin Dose 0.1 MG; Start 02/09/17 at 21:00 Levothyroxine Sodium (Synthroid) 150 mcg DAILY@06 PO Last administered on 05:02; Admin Dose 150 MCG; Start 02/10/17 at 06:00 Pantoprazole (Protonix Tab) 40 mg DAILY@06 PO Last administered on 02/11/17 05 :02; Admin Dose 40 MG; Start 02/11/17 at 06:00 Hydrocortisone (Cortef) 10 mg AM PO Last administered on 02/11/17 08:41; Admin Dose 10 MG; Start 02/11/17 at 09:00 SAWYER OLIVAS MD Feb 11, 2017 12:27
[2017-02-11 13:46] LABS: LUTEINIZING HORMONE 1.5 mIU/mL
--- NOTE | 2017-02-11 18:48 | CONS ---
Date/Time of Note Date/Time of Note DATE: 02/11/17 TIME: 18:45 Assessment/Plan Assessment/Plan Problems: (1) Panhypopituitarism Status: Chronic Comment: In good control. On baseline doses of hydrocortisone, levothyroxine, and desmopressin. Consider sex steroids in the future (2) Hyperglycemia Status: Resolved Comment: With the discontinuation of quetiapine and reducing hydrocortisone to baseline, hyperglycemia resolved. Will d/c fingersticks. Consultation Date/Type/Reason Admit Date/Time Feb 06, 2017 at 05:14 Initial Consult Date 02/06/17 Type of Consultation: Endocrinology Reason for Consultation Hypothyroidism Referring Provider: MOOSE CASTILLO 24 HR Interval Summary Constitutional: improved, no complaints Detailed Summary Respiratory: no complaints Cardiovascular: no complaints Gastrointestinal: no complaints Genitourinary: no complaints Musculoskeletal: no complaints Neurologic: no complaints Exam/Review of Systems Vital Signs Vitals VS - Last 72 Hours, by Label Date Time Temp Pulse Resp B/P Pulse Ox O2 Delivery O2 Flow Rate FiO2 02/11/17 07:26 98.0 55 19 111/63 98 02/10/17 20:05 53 02/10/17 13:57 98.2 52 18 119/72 97 Room Air 52 02/10/17 07:31 98.4 81 18 108/66 97 02/09/17 19:08 98.2 95 16 120/78 98 02/09/17 17:00 98.7 56 18 129/72 96 Room Air 02/09/17 16:00 47 02/09/17 15:00 41 16 117/77 97 Room Air 02/09/17 14:00 53 16 100/62 97 Room Air 02/09/17 13:00 52 20 104/56 Room Air 02/09/17 12:00 54 20 87/63 95 Room Air 02/09/17 12:00 53 02/09/17 12:00 98.0 02/09/17 11:00 49 18 92/58 94 Room Air 02/09/17 10:00 60 26 107/71 98 Room Air 02/09/17 09:00 56 20 117/86 98 Room Air 02/09/17 08:00 98.0 51 24 120/80 96 Room Air 02/09/17 08:00 53 02/09/17 07:00 54 20 103/71 97 Room Air 02/09/17 06:00 61 19 112/85 96 Room Air 02/09/17 05:00 56 18 100/60 96 Room Air 02/09/17 04:00 97.8 56 14 119/71 95 Room Air 02/09/17 04:00 58 02/09/17 03:00 53 21 110/70 96 Room Air 02/09/17 02:00 60 22 111/75 95 Room Air 02/09/17 01:00 55 21 89/50 96 Room Air 02/09/17 00:00 58 02/09/17 00:00 98.2 57 20 93/45 96 Room Air 02/08/17 23:00 63 21 97/53 96 Room Air 02/08/17 22:00 60 21 92/55 96 Room Air 02/08/17 21:00 70 23 95/57 95 Room Air 02/08/17 20:00 98.1 84 16 95/63 97 Room Air 02/08/17 20:00 83 02/08/17 19:00 98 24 98 Vital Signs Date Time Temp Pulse Resp B/P Pulse Ox O2 Delivery O2 Flow Rate FiO2 02/11/17 07:26 98.0 55 19 111/63 98 02/10/17 13:57 Room Air 02/08/17 18:00 2.0 Intake and Output 02/10/17 02/10/17 02/11/17 15:00 23:00 07:00 Intake Total 1500 ml 1600 ml Output Total 1200 ml 1420 ml Balance 300 ml 180 ml Exam Constitutional: alert, obese, oriented Psych: nl mood/affect, no complaints Respiratory: clear to auscultation, normal air movement Cardiovascular: nl pulses, regular rate and rhythm, No edema, No murmurs/extra sounds, No rub Gastrointestinal: bowel sounds, nl liver, spleen, non-tender, soft, No mass, No rebound or guarding Musculoskeletal: nl extremities to inspection Extremities: normal pulses, No clubbing, No cyanosis, No edema 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, nl mental status, nl speech, nl strength Additional Comments Bedside Glucose - 72 Hours Test 02/08/17 19:58 02/08/17 21:13 02/08/17 23:19 02/09/17 00:07 Bedside Glucose 193mg/dL (70-220) 189mg/dL (70-220) 171mg/dL (70-220) 164mg/dL (70-220) Test 02/09/17 01:08 02/09/17 03:13 02/09/17 05:07 02/09/17 07:03 Bedside Glucose 164mg/dL (70-220) 162mg/dL (70-220) 162mg/dL (70-220) 159mg/dL (70-220) Test 02/09/17 08:02 02/09/17 20:15 02/10/17 07:39 02/10/17 11:27 Bedside Glucose 149mg/dL (70-220) 143mg/dL (70-220) 128mg/dL (70-220) 143mg/dL (70-220) Test 02/10/17 17:42 02/10/17 21:37 02/11/17 08:11 02/11/17 12:19 Bedside Glucose 124mg/dL (70-220) 109mg/dL (70-220) 85mg/dL (70-220) 115mg/dL (70-220) Test 02/11/17 17:20 Bedside Glucose 99mg/dL (70-220) Results Result Diagram: 02/10/17 0431 02/11/17 0453 Results 24 hrs Laboratory Tests Test 02/10/17 21:37 02/11/17 04:53 02/11/17 08:11 02/11/17 12:19 Bedside Glucose 109 85 115 Sodium Level 142 Potassium Level 3.4 L Chloride Level 112 H Carbon Dioxide Level 22 Anion Gap 11 Blood Urea Nitrogen 16 Creatinine 0.69 Glucose Level 93 # Calcium Level 8.7 Magnesium Level 2.4 Test 02/11/17 17:20 Bedside Glucose 99 Medications Medications Current Medications Ondansetron HCl (Zofran Inj) 4 mg Q6H PRN IV NAUSEA AND/OR VOMITING; Start at 05:30 Acetaminophen (Tylenol Tab) 650 mg Q6H PRN PO PAIN LEVEL 1-3 OR FEVER; Start at 05:30 Enoxaparin Sodium (Lovenox) 40 mg DAILY SC Last administered on 02/11/17t 08:50 ; Admin Dose 40 MG; Start 02/06/17 at 09:00 Lorazepam (Ativan) 1 mg Q4H PRN IV AGITATION/ANXIETY; Start 02/09/17 at 11:00 Desmopressin Acetate (Ddavp) 0.1 mg BID PO Last administered on 02/11/17 08:41 ; Admin Dose 0.1 MG; Start 02/09/17 at 21:00 Levothyroxine Sodium (Synthroid) 150 mcg DAILY@06 PO Last administered on 05:02; Admin Dose 150 MCG; Start 02/10/17 at 06:00 Pantoprazole (Protonix Tab) 40 mg DAILY@06 PO Last administered on 02/11/17 05 :02; Admin Dose 40 MG; Start 02/11/17 at 06:00 Hydrocortisone (Cortef) 10 mg AM PO Last administered on 02/11/17 08:41; Admin Dose 10 MG; Start 02/11/17 at 09:00 HIREN FARMER MD Feb 11, 2017 18:48
[2017-02-11 20:30] VITALS: PULSE 53
[2017-02-11 21:29] VITALS: BP 113/58; RESP 20
[2017-02-12] MEDS: LEVOTHYROXINE 150 MCG TAB PO SCH (04:55)
[2017-02-12] MEDS: PANTOPRAZOLE (EC) 40 MG TAB PO SCH (04:55)
[2017-02-12 08:24] VITALS: BP 109/63; RESP 18
[2017-02-12] MEDS: HYDROCORTISONE 5 MG TAB PO SCH ×2 (08:28→17:34)
[2017-02-12] MEDS: DESMOPRESSIN 0.1 MG TAB PO SCH ×2 (08:29→21:51)
[2017-02-12] MEDS: ENOXAPARIN 40 MG/0.4 ML SYG SC SCH (08:30)
--- NOTE | 2017-02-12 12:13 | PN ---
Date/Time of Note Date/Time of Note DATE: 02/12/17 TIME: 12:12 Assessment/Plan VTE Prophylaxis VTE Prophylaxis Intervention: SCD's Lines/Catheters IV Catheter Type (from Nrs): Saline Lock Urinary Cath still in place: No Assessment/Plan Assessment/Plan 1. Acute encephalopathy 2/2 possible aseptic meningitis 2. Sepsis, likely secondary to meningitis. 3. Panhypopituitarism- Endocrine following 4. DAYSI due to prerenal azotemia 5. acute transaminitis 6. Elevated troponin due to demand, s/p cardiolgoy consult 7. Hypokalemia 8. Lactic acidosis, resolved. 9. acute pancreatitis 10. Acute hypernatremia - improved to normal Plan: BS controlled Ambulate pt Protonix for GI prophylaxis On baseline doses of hydrocortisone, levothyroxine, and desmopressin. d/c plan to home tomorrow Subjective 24 Hr Interval Summary Free Text/Dictation no acute events, BP stable Exam/Review of Systems Vital Signs Vitals Vital Signs Date Time Temp Pulse Resp B/P Pulse Ox O2 Delivery O2 Flow Rate FiO2 02/12/17 08:24 97.9 62 18 109/63 99 02/10/17 13:57 Room Air 02/08/17 18:00 2.0 Intake and Output 02/11/17 02/11/17 02/12/17 14:59 22:59 06:59 Intake Total 840 ml 1600 ml Balance 840 ml 1600 ml Exam GENERAL: alert, awake CHEST: Decreased breath sounds at the bases. HEART: Without murmur or gallop. ABDOMEN: Soft, nontender, without organosplenomegaly or masses. EXTREMITIES: Without cyanosis, clubbing, or edema. RECTAL AND GENITAL: Deferred. NEUROLOGIC: normal Results Result Diagram: 02/10/17 0431 02/11/17 0453 Results 24 hrs Laboratory Tests Test 02/11/17 12:19 02/11/17 17:20 02/12/17 09:30 Bedside Glucose 115 99 Lab Scanned Report REFERENCE LAB Medications Medications Current Medications Ondansetron HCl (Zofran Inj) 4 mg Q6H PRN IV NAUSEA AND/OR VOMITING; Start at 05:30 Acetaminophen (Tylenol Tab) 650 mg Q6H PRN PO PAIN LEVEL 1-3 OR FEVER; Start at 05:30 Enoxaparin Sodium (Lovenox) 40 mg DAILY SC Last administered on 02/12/17 08:30 ; Admin Dose 40 MG; Start 02/06/17 at 09:00 Lorazepam (Ativan) 1 mg Q4H PRN IV AGITATION/ANXIETY; Start 02/09/17 at 11:00 Desmopressin Acetate (Ddavp) 0.1 mg BID PO Last administered on 02/12/17 08:29 ; Admin Dose 0.1 MG; Start 02/09/17 at 21:00 Levothyroxine Sodium (Synthroid) 150 mcg DAILY@06 PO Last administered on 04:55; Admin Dose 150 MCG; Start 02/10/17 at 06:00 Pantoprazole (Protonix Tab) 40 mg DAILY@06 PO Last administered on 02/12/17 04 :55; Admin Dose 40 MG; Start 02/11/17 at 06:00 Hydrocortisone (Cortef) 10 mg AM PO Last administered on 02/12/17 08:28; Admin Dose 10 MG; Start 02/11/17 at 09:00 SAWYER OLIVAS MD Feb 12, 2017 12:13
--- NOTE | 2017-02-12 12:14 | PDOCDIS ---
Discharge Instructions CONDITION Patient Condition: Good HOME CARE INSTRUCTIONS: Diet Instructions: RegularSpecial Diet: regular diet ACTIVITY: Activity Restrictions: Slowly Increase Activity Avoid heavy lifting Avoid Heavy Housework Bathing Restrictions: Shower FOLLOW UP/APPOINTMENTS Appointments follow up with her own PMD through HMO insurance in 1-2 week. Follow up with Endocrine as outpatient for panhypopituitarism SAWYER OLIVAS MD Feb 12, 2017 12:14
--- NOTE | 2017-02-12 18:10 | CONS ---
Date/Time of Note Date/Time of Note DATE: 02/12/17 TIME: 18:08 Assessment/Plan Assessment/Plan Problems: (1) Panhypopituitarism Status: Chronic Comment: All complications resolved. Back to baseline and on baseline therapy. Ok for d/c home on this therapy from endo standpoint. Consultation Date/Type/Reason Admit Date/Time Feb 06, 2017 at 05:14 Initial Consult Date 02/06/17 Type of Consultation: Endocrinology Reason for Consultation Hypothyroidism Referring Provider: MOOSE CASTILLO 24 HR Interval Summary Constitutional: improved (planning to go home tomorrow), no complaints Exam/Review of Systems Vital Signs Vitals VS - Last 72 Hours, by Label Date Time Temp Pulse Resp B/P Pulse Ox O2 Delivery O2 Flow Rate FiO2 02/12/17 08:24 97.9 62 18 109/63 99 02/11/17 21:29 97.6 20 113/58 95 02/11/17 20:30 53 02/11/17 07:26 98.0 55 19 111/63 98 02/10/17 20:05 53 02/10/17 13:57 98.2 52 18 119/72 97 Room Air 52 02/10/17 07:31 98.4 81 18 108/66 97 02/09/17 19:08 98.2 95 16 120/78 98 Vital Signs Date Time Temp Pulse Resp B/P Pulse Ox O2 Delivery O2 Flow Rate FiO2 02/12/17 08:24 97.9 62 18 109/63 99 02/10/17 13:57 Room Air 02/08/17 18:00 2.0 Intake and Output 02/11/17 02/11/17 02/12/17 15:00 23:00 07:00 Intake Total 840 ml 1600 ml Balance 840 ml 1600 ml Exam Constitutional: alert, obese, oriented Respiratory: clear to auscultation, normal air movement Cardiovascular: nl pulses, regular rate and rhythm, No edema, No murmurs/extra sounds, No rub Gastrointestinal: bowel sounds, nl liver, spleen, non-tender, soft, No mass, No rebound or guarding Musculoskeletal: nl extremities to inspection Extremities: normal pulses, No clubbing, No cyanosis, No edema 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, nl mental status, nl speech, nl strength Results Result Diagram: 02/10/17 0431 02/11/17 0453 Results 24 hrs Laboratory Tests Test 02/12/17 09:30 Lab Scanned Report REFERENCE LAB Medications Medications Current Medications Ondansetron HCl (Zofran Inj) 4 mg Q6H PRN IV NAUSEA AND/OR VOMITING; Start at 05:30 Acetaminophen (Tylenol Tab) 650 mg Q6H PRN PO PAIN LEVEL 1-3 OR FEVER; Start at 05:30 Enoxaparin Sodium (Lovenox) 40 mg DAILY SC Last administered on 02/12/17 08:30 ; Admin Dose 40 MG; Start 02/06/17 at 09:00 Lorazepam (Ativan) 1 mg Q4H PRN IV AGITATION/ANXIETY; Start 02/09/17 at 11:00 Desmopressin Acetate (Ddavp) 0.1 mg BID PO Last administered on 02/12/17 08:29 ; Admin Dose 0.1 MG; Start 02/09/17 at 21:00 Levothyroxine Sodium (Synthroid) 150 mcg DAILY@06 PO Last administered on 04:55; Admin Dose 150 MCG; Start 02/10/17 at 06:00 Pantoprazole (Protonix Tab) 40 mg DAILY@06 PO Last administered on 02/12/17 04 :55; Admin Dose 40 MG; Start 02/11/17 at 06:00 Hydrocortisone (Cortef) 10 mg AM PO Last administered on 02/12/17 08:28; Admin Dose 10 MG; Start 02/11/17 at 09:00 HIREN FARMER MD Feb 12, 2017 18:10
[2017-02-12 20:32] VITALS: BP 108/59; RESP 20
[2017-02-13] MEDS: PANTOPRAZOLE (EC) 40 MG TAB PO SCH (06:13)
[2017-02-13] MEDS: LEVOTHYROXINE 150 MCG TAB PO SCH (06:13)
[2017-02-13 08:02] VITALS: BP 108/60; RESP 18
[2017-02-13] MEDS: HYDROCORTISONE 5 MG TAB PO SCH (08:42)
[2017-02-13] MEDS: DESMOPRESSIN 0.1 MG TAB PO SCH (08:42)
[2017-02-13] MEDS: ENOXAPARIN 40 MG/0.4 ML SYG SC SCH (08:45)
--- NOTE | 2017-02-13 10:18 | PN ---
Date/Time of Note Date/Time of Note DATE: 02/13/17 TIME: 10:17 Assessment/Plan VTE Prophylaxis VTE Prophylaxis Intervention: SCD's Lines/Catheters IV Catheter Type (from Nrs): Saline Lock Urinary Cath still in place: No Assessment/Plan Assessment/Plan 1. Acute encephalopathy 2/2 possible aseptic meningitis 2. Sepsis, likely secondary to meningitis. 3. Panhypopituitarism- Endocrine following 4. DAYSI due to prerenal azotemia 5. acute transaminitis 6. Elevated troponin due to demand, s/p cardiolgoy consult 7. Hypokalemia 8. Lactic acidosis, resolved. 9. acute pancreatitis 10. Acute hypernatremia - improved to normal Plan: BS controlled Ambulate pt Protonix for GI prophylaxis On baseline doses of hydrocortisone, levothyroxine, and desmopressin. d/c plan to home today Subjective 24 Hr Interval Summary Free Text/Dictation doing ok, BP stable, blood sugar controlled Exam/Review of Systems Vital Signs Vitals Vital Signs Date Time Temp Pulse Resp B/P Pulse Ox O2 Delivery O2 Flow Rate FiO2 02/13/17 08:02 98.2 60 18 108/60 90 02/10/17 13:57 Room Air Intake and Output 02/12/17 02/12/17 02/13/17 15:00 23:00 07:00 Intake Total 840 ml 450 ml Output Total 1000 ml Balance -160 ml 450 ml Exam GENERAL: alert, awake CHEST: Decreased breath sounds at the bases. HEART: Without murmur or gallop. ABDOMEN: Soft, nontender, without organosplenomegaly or masses. EXTREMITIES: Without cyanosis, clubbing, or edema. RECTAL AND GENITAL: Deferred. NEUROLOGIC: normal Results Result Diagram: 02/10/17 0431 02/11/17 0453 Medications Medications Current Medications Ondansetron HCl (Zofran Inj) 4 mg Q6H PRN IV NAUSEA AND/OR VOMITING; Start at 05:30 Acetaminophen (Tylenol Tab) 650 mg Q6H PRN PO PAIN LEVEL 1-3 OR FEVER; Start at 05:30 Enoxaparin Sodium (Lovenox) 40 mg DAILY SC Last administered on 02/13/17t 08:45 ; Admin Dose 40 MG; Start 02/06/17 at 09:00 Lorazepam (Ativan) 1 mg Q4H PRN IV AGITATION/ANXIETY; Start 02/09/17 at 11:00 Desmopressin Acetate (Ddavp) 0.1 mg BID PO Last administered on 02/13/17 08:42 ; Admin Dose 0.1 MG; Start 02/09/17 at 21:00 Levothyroxine Sodium (Synthroid) 150 mcg DAILY@06 PO Last administered on 06:13; Admin Dose 150 MCG; Start 02/10/17 at 06:00 Pantoprazole (Protonix Tab) 40 mg DAILY@06 PO Last administered on 02/13/17 06 :13; Admin Dose 40 MG; Start 02/11/17 at 06:00 Hydrocortisone (Cortef) 10 mg AM PO Last administered on 02/13/17 08:42; Admin Dose 10 MG; Start 02/11/17 at 09:00 SAWYER OLIVAS MD Feb 13, 2017 10:18
[2017-02-13 15:47] LABS: INSULIN-LIKE GROWTH FACTOR I <16 ng/mL (83-456)
--- NOTE | 2017-02-15 22:54 | DS ---
DATE OF ADMISSION: 02/06/2017 DATE OF DISCHARGE: 02/13/2017 FINAL DISCHARGE DIAGNOSES: 1. Acute encephalopathy secondary to possibly aseptic meningitis. 2. Sepsis secondary to meningitis. 3. Septic encephalopathy. 4. Panhypopituitarism 5. Acute kidney injury secondary to prerenal azotemia. 6. Acute transaminitis. 7. Positive troponin secondary to demand ischemia. 8. Hypokalemia. 9. Lactic acidosis secondary to sepsis. 10. Acute pancreatitis. 11. Acute hypernatremia. CONSULTATIONS DONE DURING THIS HOSPITALIZATION: 1. Endocrine consult, Dr. Chase Bruce 2. Cardiology consult, Dr. Monroy [facility]: This is a 21-year-old female who has a past medical history of panhypopituitarism, history of diabetes mellitus who presented with a complaint of altered mental status. The patient is noted to have sepsis on admission. She was admitted to the ICU possibly secondary to acute encep halopathy secondary to meningitis. She also had a septic encephalopathy with acute kidney injury se condary to prerenal azotemia. The patient was treated with IV antibiotics initially for aseptic men ingitis, had infectious disease consultation. She was also followed up by Dr. Chase Bruce for e ndocrine consultation due to her panhypopituitarism and acute hypernatremia. The patient stayed in the ICU for the first 2 to 3 days. She gradually improved back to the normal baseline status and re mained hemodynamically stable. Subsequently, downgraded to the telemetry floor from which she was d owngraded to the med/surg floor and after staying on the med/surg floor for a few days when she came back to her normal baseline status, she was discharged home. DISPOSITION: To home. DISCHARGE CONDITION: Stable and improved compared to admission. DISCHARGE ACTIVITIES: As tolerated, slowly resume to the normal baseline activity. DISCHARGE DIET: Regular diet. DISCHARGE MEDICATIONS: As per medical reconciliation. DISCHARGE FOLLOWUP AND INSTRUCTIONS: 1. The patient is to follow up with her own primary care doctor through her HMO insurance 1 to 2 we eks after discharge. 2. The patient is to follow with Dr. Sawyer Abbasi. 3. The patient is to follow up with endocrine, Dr. Chase Bruce, as outpatient in 1 to 2 weeks a fter discharge. She has been explained about the discharge plan and followup instructions. She understood and verba lized understanding. Dictated By: SAWYER ABBASI MD KP/ZACK Conf#: [id number] DID#: [id number] CC: SEB SANCHEZ MD;*EndCC*
== END 2017-02-13 14:20 | disposition home or self-care (01) | DRG 871 ==
LOC: E/R 22:02 → ICU 02-06 05:14 → MS1 02-09 17:00
PROVIDERS: ADMIT Internal Medicine; ATTEND Internal Medicine
PROC: 009U3ZX Drainage of Spinal Canal, Percutaneous Approach, Diagnostic (ICD-10-PCS; principal; 2017-02-06)
DX: A41.9 Sepsis, unspecified organism (principal); R65.21 Severe sepsis with septic shock; G93.41 Metabolic encephalopathy; K85.90 Acute pancreatitis without necrosis or infection, unspecified; E87.2 Acidosis; G03.0 Nonpyogenic meningitis; N17.9 Acute kidney failure, unspecified; E23.0 Hypopituitarism; I24.8 Other forms of acute ischemic heart disease; E87.0 Hyperosmolality and hypernatremia; E23.2 Diabetes insipidus; R19.7 Diarrhea, unspecified; E87.6 Hypokalemia; Z91.14 Patient's other noncompliance with medication regimen
CPT/HCPCS: 36415; 70450; 71010; 74176; 80048; 80053; 80202; 80306; 80307; 81001; 81003; 82140; 82533; 82550; 82553; 82945; 82962; 83001; 83002; 83605; 83690; 83735; 84100; 84157; 84305; 84439; 84443; 84481; 84484; 85025; 85610; 85730; 86403; 86592; 86641; 86692; 86703; 86788; 86789; 87040; 87070; 87081; 87086; 87400; 89050; 93005; 93306; 96365; 96367; 96375; 96376; 97162; C9113; J0133; J0153; J0743; J1100; J1650; J1720; J1815; J2060; J2270; J3370; J3480; J7030; J7040; J7042; J7070

== ENCOUNTER 2018-07-26 15:22 | Emergency (ER) | END 2018-07-26 20:59 | disposition home or self-care (01) ==